=== PATIENT | female | born 1945 | race Caucasian/White ===

== ENCOUNTER → 2018-03-28 09:02 | Outpatient (CLI) | payer MEDICARE, OTHER, SELFPAY ==
[2018-03-28 10:42] LABS: Add Manual Diff / Slide Review NO; Basophils Percent Auto 0.7 % (0-2); Eosinophils Percent Auto 2.8 % (2-4); Hematocrit 40.9 % (36-46); Lymphocytes Percent Auto 30.6 % (25-40); Mean Corpuscular HGB Conc 34.2 % (30-36); Mean Corpuscular Volume 90.7 fL (80-100); Monocytes Percent Auto 8.6 % (3-14); Neutrophils Absolute Auto 2700 /uL (3000-5900); Neutrophils Percent Auto 57.3 % (50-75); Platelet Count 286 X10^3/uL (150-400); Red Blood Cell Count 4.51 X10^6/uL (4.0-5.2); Red Cell Distribution Width 13.6 % (11.6-14.8); White Blood Cell Count 4.7 X10^3/uL (4.5-11.0)
[2018-03-28 11:37] LABS: Alanine Aminotransferase 18 IU/L (9-52); Albumin 3.9 g/dL (3.5-5.0); Albumin Globulin Ratio 1.3 (1.0-2.8); Alkaline Phosphatase 46 U/L (38-126); Aspartate Aminotransferase 17 IU/L (14-36); BUN Creatinine Ratio 18.9 (6-22); Bilirubin Total 0.6 mg/dL (0.2-1.3); Blood Urea Nitrogen 17 mg/dL (7-17); Calcium 9.3 mg/dL (8.4-10.2); Carbon Dioxide 26 mmol/L (22-32); Chloride 105 mmol/L (98-107); Cholesterol 250 mg/dL (140-199); Estimated Glomerular Filt Rate > 60.0 mL/min (>60); Globulin 2.9 g/dL (1.7-4.1); Glucose 102 mg/dL (80-110); HDL Cholesterol 99 mg/dL (40-60); HEMOLYSIS < 15 (0-50); LDL Cholesterol Calculated 131 mg/dL (<100); Potassium 3.9 mmol/L (3.4-5.1); Sodium 140 mmol/L (137-145); Total Protein 6.8 g/dL (6.3-8.2); Triglycerides 101 mg/dL (35-150)
[2018-03-28 12:21] LABS: TSH w/ Reflex to FT4 0.35 uIU/mL (0.47-4.68)
[2018-03-28 13:29] LABS: Free T4, Direct Thyroxine 1.71 ng/dL (0.78-2.19)
== END ==
PROVIDERS: PCP Family Medicine; Visit Provider Family Medicine
DX: E03.9 Hypothyroidism, unspecified (principal)
CPT/HCPCS: 36415; 80053; 80061; 84439; 84443; 85025

== ENCOUNTER → 2018-03-29 09:13 | Outpatient (CLI) | payer MEDICARE, OTHER, SELFPAY ==
--- NOTE | 2018-03-29 | DI.MG.S_ITS ---
BILATERAL DIGITAL SCREENING MAMMOGRAM 3D/2D WITH CAD: 03/29/2018 CLINICAL: Routine screening. Comparison is made to exams dated: 01/18/2017 mammogram, 03/19/2014 mammogram, and 10/30/2015 mammogram - [facility]. The tissue of both breasts is heterogeneously dense. This may lower the sensitivity of mammography. Current study was also evaluated with a Computer Aided Detection (CAD) system. No significant masses, calcifications, or other findings are seen in either breast. There has been no significant interval change. IMPRESSION: NEGATIVE There is no mammographic evidence of malignancy. A 1 year screening mammogram is recommended. This exam was interpreted at Station ID: [id number]. NOTE: For mammograms, a report in lay terms will be sent to the patient. Approximately 15% of breast malignancies will not be visualized mammographically. In the management of a palpable breast mass, a negative mammogram must not discourage biopsy of a clinically suspicious lesion. Electronically Signed By: Kit virk/zoran:03/29/2018 17:13:43 letter sent: Normal Exam ACR BI-RADS Category 1: Negative 3341F
== END ==
PROVIDERS: PCP Family Medicine; Visit Provider Family Medicine
DX: Z12.31 Encounter for screening mammogram for malignant neoplasm of breast (principal)
CPT/HCPCS: 77063; 77067

== ENCOUNTER → 2019-01-11 09:03 | Outpatient (CLI) | payer MEDICARE, OTHER, SELFPAY ==
[2019-01-11 11:07] LABS: TSH w/ Reflex to FT4 0.26 uIU/mL (0.47-4.68)
[2019-01-11 11:35] LABS: Free T4, Direct Thyroxine 1.95 ng/dL (0.78-2.19)
== END ==
PROVIDERS: PCP Family Medicine; Visit Provider Family Medicine
DX: E03.9 Hypothyroidism, unspecified (principal)
CPT/HCPCS: 36415; 84439; 84443

== ENCOUNTER → 2019-05-15 09:03 | Outpatient (CLI) | payer MEDICARE, OTHER, SELFPAY ==
--- NOTE | 2019-05-15 | DI.MG.S_ITS ---
BILATERAL DIGITAL SCREENING MAMMOGRAM 3D/2D WITH CAD: 05/15/2019 CLINICAL: Routine screening. Comparison is made to exams dated: 03/29/2018 mammogram, 01/18/2017 mammogram, and 10/30/2015 mammogram - [facility]. The tissue of both breasts is heterogeneously dense. This may lower the sensitivity of mammography. Current study was also evaluated with a Computer Aided Detection (CAD) system. No significant masses, calcifications, or other findings are seen in either breast. There has been no significant interval change. IMPRESSION: NEGATIVE There is no mammographic evidence of malignancy. A 1 year screening mammogram is recommended. This exam was interpreted at Station ID: [id number]. NOTE: For mammograms, a report in lay terms will be sent to the patient. Approximately 15% of breast malignancies will not be visualized mammographically. In the management of a palpable breast mass, a negative mammogram must not discourage biopsy of a clinically suspicious lesion. Electronically Signed By: Kit virk/zoran:05/15/2019 16:33:48 letter sent: Normal Exam ACR BI-RADS Category 1: Negative 3341F
[2019-05-15 10:15] LABS: Alanine Aminotransferase 9 IU/L (9-52); Albumin 4.1 g/dL (3.5-5.0); Albumin Globulin Ratio 1.4 (1.0-2.8); Alkaline Phosphatase 52 U/L (38-126); Aspartate Aminotransferase 17 IU/L (14-36); BUN Creatinine Ratio 21.3 (6-22); Bilirubin Total 0.5 mg/dL (0.2-1.3); Blood Urea Nitrogen 17 mg/dL (7-17); Calcium 9.3 mg/dL (8.4-10.2); Carbon Dioxide 28 mmol/L (22-32); Chloride 105 mmol/L (98-107); Cholesterol 252 mg/dL (140-199); Estimated Glomerular Filt Rate > 60.0 mL/min (>60); Glucose 106 mg/dL (80-110); HDL Cholesterol 108 mg/dL (40-60); HEMOLYSIS < 15 (0-50); LDL Cholesterol Calculated 122 mg/dL (<100); Potassium 4.6 mmol/L (3.4-5.1); Sodium 139 mmol/L (137-145); Total Protein 7.1 g/dL (6.3-8.2); Triglycerides 109 mg/dL (35-150)
[2019-05-15 11:06] LABS: Free T3, Triiodothyronine Free 2.55 pg/mL (2.77-5.27); Free T4, Direct Thyroxine 1.35 ng/dL (0.78-2.19)
[2019-05-15 11:20] LABS: Thyroid Stimulating Hormone 1.41 uIU/mL (0.47-4.68)
== END ==
PROVIDERS: PCP Family Medicine; Visit Provider Family Medicine
DX: Z13.21 Encounter for screening for nutritional disorder (principal); E03.9 Hypothyroidism, unspecified; E78.5 Hyperlipidemia, unspecified
CPT/HCPCS: 36415; 77063; 77067; 80053; 80061; 84439; 84443; 84481

== ENCOUNTER → 2020-09-10 12:39 | Outpatient (CLI) | payer MEDICARE, OTHER, SELFPAY ==
--- NOTE | 2020-09-10 12:40 | DI.MG.S_ITS ---
BILATERAL DIGITAL SCREENING MAMMOGRAM 3D/2D WITH CAD: 09/10/2020 CLINICAL: Routine screening. Comparison is made to exams dated: 05/15/2019 mammogram, 03/29/2018 mammogram, and 01/18/2017 mammogram - [facility]. The tissue of both breasts is heterogeneously dense. This may lower the sensitivity of mammography. Current study was also evaluated with a Computer Aided Detection (CAD) system. There is a stable benign focal asymmetry in both breasts. No significant masses, calcifications, or other findings are seen in either breast. There has been no significant interval change. IMPRESSION: BENIGN There is no mammographic evidence of malignancy. A 1 year screening mammogram is recommended. This exam was interpreted at Station ID: [id number]. NOTE: For mammograms, a report in lay terms will be sent to the patient. Approximately 15% of breast malignancies will not be visualized mammographically. In the management of a palpable breast mass, a negative mammogram must not discourage biopsy of a clinically suspicious lesion. Electronically Signed By: Bishnu Jay acr/zoran:09/10/2020 13:38:13 letter sent: Normal Exam ACR BI-RADS Category 2: Benign Finding(s) 3342F
== END ==
PROVIDERS: PCP Family Medicine; Referring Provider Family Medicine; Visit Provider Family Medicine
DX: Z12.31 Encounter for screening mammogram for malignant neoplasm of breast (principal)
CPT/HCPCS: 77063; 77067

== ENCOUNTER → 2020-09-23 09:36 | Outpatient (CLI) | payer MEDICARE, OTHER, SELFPAY ==
[2020-09-23 11:18] LABS: Alanine Aminotransferase 13 IU/L (<35); Albumin 4.1 g/dL (3.5-5.0); Albumin Globulin Ratio 1.4 (1.0-2.8); Alkaline Phosphatase 57 U/L (38-126); Aspartate Aminotransferase 20 IU/L (14-36); BUN Creatinine Ratio 17.2 (6-22); Bilirubin Total 0.5 mg/dL (0.2-1.3); Blood Urea Nitrogen 15 mg/dL (7-17); Calcium 9.2 mg/dL (8.4-10.2); Carbon Dioxide 28 mmol/L (22-32); Chloride 105 mmol/L (98-107); Cholesterol 278 mg/dL (140-199); Estimated Glomerular Filt Rate > 60.0 mL/min (>60); Glucose 109 mg/dL (80-110); HEMOLYSIS < 15 (0-50); Potassium 3.9 mmol/L (3.4-5.1); Sodium 136 mmol/L (137-145); Total Protein 7.1 g/dL (6.3-8.2); Triglycerides 143 mg/dL (35-150)
[2020-09-23 11:26] LABS: HDL Cholesterol 124 mg/dL (40-60); LDL Cholesterol Calculated 125 mg/dL (<100)
[2020-09-23 11:55] LABS: TSH w/ Reflex to FT4 1.34 uIU/mL (0.47-4.68)
== END ==
PROVIDERS: PCP Family Medicine; Referring Provider Family Medicine; Visit Provider Family Medicine
DX: E03.9 Hypothyroidism, unspecified (principal); E78.5 Hyperlipidemia, unspecified
CPT/HCPCS: 36415; 80053; 80061; 84443

== ENCOUNTER 2020-12-04 14:48 | Emergency (ER) | payer MEDICARE, OTHER, SELFPAY ==
[2020-12-04 14:50] VITALS: BP 183/96; PULSE 57; RESP 16; TEMP 36.4; O2SAT 94; BMI 27.3
[2020-12-04] MEDS: SODIUM CHLORIDE 0.9% 1,000 ML 1000 ML IV (15:11)
[2020-12-04 15:15] LABS: Add Manual Diff / Slide Review NO; Basophils Absolute Auto 0 /uL (0-100); Basophils Percent Auto 0.8 % (0-2); Eosinophils Absolute Auto 200 /uL (0-450); Eosinophils Percent Auto 3.5 % (2-4); Hematocrit 43.2 % (36-46); Hemoglobin 14.5 g/dL (12.0-16.0); Lymphocytes Absolute Auto 1900 /uL (1100-4500); Lymphocytes Percent Auto 30.9 % (25-40); Mean Corpuscular HGB Conc 33.4 % (30-36); Mean Corpuscular Hemoglobin 31.5 PG (26-34); Mean Corpuscular Volume 94.1 fL (80-100); Monocytes Absolute Auto 400 /uL (0-900); Neutrophils Absolute Auto 3600 /uL (1500-7000); Neutrophils Percent Auto 57.8 % (50-75); Platelet Count 269 X10^3/uL (150-400); Red Blood Cell Count 4.59 X10^6/uL (4.0-5.2); Red Cell Distribution Width 13.6 % (11.6-14.8); White Blood Cell Count 6.3 X10^3/uL (4.5-11.0)
[2020-12-04 15:27] LABS: Alanine Aminotransferase 29 IU/L (<35); Albumin 4.4 g/dL (3.5-5.0); Albumin Globulin Ratio 1.6 (1.0-2.8); Alkaline Phosphatase 81 U/L (38-126); Aspartate Aminotransferase 72 IU/L (14-36); BUN Creatinine Ratio 18.2 (6-22); Bilirubin Total 0.6 mg/dL (0.2-1.3); Blood Urea Nitrogen 18 mg/dL (7-17); Calcium 9.6 mg/dL (8.4-10.2); Carbon Dioxide 23 mmol/L (22-32); Chloride 104 mmol/L (98-107); Creatine Kinase 37 U/L (30-135); Estimated Glomerular Filt Rate 54.5 mL/min (>60); Ethanol (ETOH) < 10 mg/dL; Globulin 2.8 g/dL (1.7-4.1); Glucose 115 mg/dL (80-110); HEMOLYSIS < 15 (0-50); Lactate (Lactic Acid) 1.9 mmol/L (0.7-2.1); Lipase 83 U/L (23-300); Potassium 3.7 mmol/L (3.4-5.1); Sodium 137 mmol/L (137-145); Total Protein 7.2 g/dL (6.3-8.2)
[2020-12-04 15:37] LABS: Troponin I < 0.012 ng/mL (0.01-0.034)
--- NOTE | 2020-12-04 15:47 | ED.GENADULT ---
HPI - General Adult General Chief complaint: Abdominal Pain Stated complaint: Sudden onset abd pain Time Seen by Provider: 12/04/20 15:08 Source: patient Mode of arrival: EMS Limitations: no limitations History of Present Illness HPI narrative: Patient is a 75-year-old female brought in by EMS for evaluation of a sudden onset of left upper quadrant abdominal pain. She states that it occurred while she was eating. She has never had any symptoms like this in the past. She felt like that her stomach was cramping. She had no other associated symptoms to include fevers or nausea vomiting or change in bowel habits. No skin rashes. The time my evaluation her symptoms have completely resolved. Related Data Home Medications Medication Instructions Recorded Confirmed VITAMIN D (Vitamin D3) 1,000 unit PO QDAY #0 05/27/11 09/25/20 Previous Rx's Medication Instructions Recorded fluocinonide 1 coco TOPICAL QDAY #30 gm 05/08/17 estradiol 0.5 mg tablet 0.5 mg PO DAILY #90 tab 08/28/19 levothyroxine 88 mcg capsule 88 mcg PO DAILY #90 cap 01/22/20 estradiol 10 mcg vaginal tablet 10 mcg VAGINAL 2XW #24 tab 07/29/20 Allergies Allergy/AdvReac Type Severity Reaction Status Date / Time adhesive Allergy Mild RASH Verified 12/04/20 14:55 PAPER TAPE OK Macrolide Antibiotics AdvReac Intermediate INTERFERS Verified 12/04/20 14:55 W/ HER MYCOPHENOLATE NSAIDS (Non-Steroidal AdvReac Intermediate SUGGESTED Verified 12/04/20 14:55 Anti-Inflamma NOT TO TAKE D/T KIDNEY PROBLEMS codeine AdvReac Mild DROWSY Verified 12/04/20 14:55 macadamian nuts Allergy Mild mouth ramos Uncoded 09/25/20 09:41 OYSTER AdvReac Mild NOSE NUMB Uncoded 09/25/20 09:41 Review of Systems Constitutional Constitutional: Denies fever(s) and Denies headache(s) ENT Ears, Nose, Mouth, and Throat: Denies headache(s) Cardiovascular Cardiovascular: Denies chest pain and Denies dyspnea Respiratory Respiratory: Denies dyspnea Gastrointestinal Gastrointestinal: Reports abdominal pain, Denies change in bowel habits, Denies nausea and Denies vomiting Genitourinary Genitourinary: Denies dysuria Genitourinary: Denies dysuria Musculoskeletal Musculoskeletal: Denies arthralgias, Denies back pain and Denies myalgias Integumentary/Breasts Skin/Breast: Denies lesions and Denies rash Neurologic Neurologic: Denies behavioral changes and Denies headache(s) Psychiatric Psychiatric: Denies behavioral changes Hematologic/Lymphatic On Anticoagulants: No Patient History Medical History Chicken pox Hayfever Hypothyroidism (~1969) Kidney failure (2011) Measles Mumps 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 Osteoarthritis (~1989) Osteoarthritis of left knee (08/27/14) 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) Plantar fasciitis Systemic fungal infection affecting skin (1978) Tinnitus (~1993) Toe fracture (2007) Upper arm fracture (1950) Surgical History (Updated 05/01/18 @ 14:25 by Sandy Rodriguez) Anesthesia History of elective (1969) History of gynecologic surgery (2013) History of knee replacement (12/2014) History of surgery on arm (1950) History of toe surgery (2007) History of tonsillectomy (1995) Status post arthroscopy (1995) Status post biopsy (2011) Status post breast biopsy (2006) Status post laparoscopy (2011) Status post vaginal hysterectomy (1979) Family History (Updated 05/01/18 @ 14:32 by Sandy Rodriguez) Grandmother Hyperlipidemia Hypertension Mother Stroke Rheumatoid arthritis Personal history of twin in prior Grandfather Prostate cancer Grandmother Hyperlipidemia Hypertension Brother Crohn's disease Father Brain cancer Social History Smoking Status: Former smoker Smoking Status: Former smoker alcohol intake frequency: 3 or more drinks per day Substance Use Type: does not use Exam Initial Vital Signs Initial Vital Signs: Vital Signs Temperature 97.5 F L 12/04/20 14:50 Pulse Rate 57 L 12/04/20 14:50 Respiratory Rate 16 12/04/20 14:50 Blood Pressure 183/96 H 12/04/20 14:50 Pulse Oximetry 94 12/04/20 14:50 Const General: cooperative, comfortable and well developed Limitations: mental status not altered HENMT Head: normal to inspection and normocephalic Resp Effort & Inspection: normal respiratory effort Cardio Rate: regular rate GI Inspection: non-distended Palpation: soft, No firm and No tender Skin Lesions: no lesions Rashes: no rashes Neuro General: patient alert, patient awake and patient oriented x3 Cognition: normal cognition Speech: speech normal Extrem General: capillary refill normal Psych Appearance: grossly normal and well kempt Course Orders Ordered: Discontinued Medications Sodium Chloride (Normal Saline 0.9%) 1,000 mls @ 1,000 mls/hr IV BOLUS ONE Stop: 12/04/20 15:54 Last Infusion: 12/04/20 16:03 Dose: 0 mls/hr Documented by: Admin: 12/04/20 15:11 Dose: 1,000 mls/hr Documented by: BRIDGETTE Vital Signs Vital signs: Vital Signs - 8 hr 12/04/20 14:50 Temperature 97.5 F L Pulse Rate 57 L Respiratory Rate 16 Blood Pressure 183/96 H Pulse Oximetry 94 Medical Decision Making Lab Data Lab results reviewed: Yes I reviewed the patient's lab results. Result diagrams: 12/04/20 15:09 12/04/20 15:09 Labs: Lab Results 12/04/20 12/04/20 12/04/20 Range/Units 15:09 15:09 15:09 WBC 6.3 (4.5-11.0) X10^3/uL RBC 4.59 (4.0-5.2) X10^6/uL Hgb 14.5 (12.0-16.0) g/dL Hct 43.2 (36-46) % MCV 94.1 (80-100) fL MCH 31.5 (26-34) PG MCHC 33.4 (30-36) % RDW 13.6 (11.6-14.8) % Plt Count 269 (150-400) X10^3/uL Neut % (Auto) 57.8 (50-75) % Lymph % (Auto) 30.9 (25-40) % [place] % (Auto) 7.0 (3-14) % Eos % (Auto) 3.5 (2-4) % Baso % (Auto) 0.8 (0-2) % Neut # (Auto) 3600 (7549-4614) /uL Lymph # (Auto) 1900 (3155-3686) /uL [place] # (Auto) 400 (0-900) /uL Eos # (Auto) 200 (0-450) /uL Baso # (Auto) 0 (0-100) /uL Sodium 137 (137-145) mmol/L Potassium 3.7 (3.4-5.1) mmol/L Chloride 104 (98-107) mmol/L Carbon Dioxide 23 (22-32) mmol/L BUN 18 H (7-17) mg/dL Creatinine 0.99 (0.52-1.04) mg/dL Estimated GFR 54.5 L (>60) mL/min BUN/Creatinine Ratio 18.2 (6-22) Glucose 115 H (80-110) mg/dL Lactate 1.9 (0.7-2.1) mmol/L Calcium 9.6 (8.4-10.2) mg/dL Total Bilirubin 0.6 (0.2-1.3) mg/dL AST 72 H (14-36) IU/L ALT 29 (<35) IU/L Alkaline Phosphatase 81 (38-126) U/L Total Creatine Kinase 37 (30-135) U/L CK-MB (CK-2) TNP CK-MB (CK-2) Rel Index TNP Troponin I < 0.012 (0.01-0.034) ng/mL Total Protein 7.2 (6.3-8.2) g/dL Albumin 4.4 (3.5-5.0) g/dL Globulin 2.8 (1.7-4.1) g/dL Albumin/Globulin Ratio 1.6 (1.0-2.8) Lipase 83 (23-300) U/L Ethyl Alcohol < 10 ( - 10) mg/dL ECG Data Attestation: I personally reviewed and interpreted this ECG as follows: Prior ECG tracings: not available for review Interpretation: Sinus rhythm Ventricular rate is 61 Normal axis Normal QRS Normal QTC No ST T wave changes MDM Narrative Medical decision making narrative: At the time my evaluation patient was completely asymptomatic and she states that she has been asymptomatic since arrival here to the emergency department. Her labs are unremarkable. Low suspicion for any acute surgical intra-abdominal pathology. She is afebrile. Her lipase is unremarkable. We will hold on further workup for now and have her return to the emergency department for symptoms worsen. Discharge Plan Departure Patient Disposition: Home Clinical Impression: Abdominal pain Instructions: DI for Abdominal Pain-Adult Activity Restrictions/Additional Instructions: Recommend that you continue all of your medications as directed. You have no restrictions on your activities or your diet however if your symptoms return or change please return to the emergency department for further evaluation. Contact your primary doctor for a follow-up. Prescriptions: No Action VITAMIN D (Vitamin D3) 1,000 unit PO QDAY Qty: 0 RF: 0 fluocinonide 0.05 % ointment 1 coco Topical QDAY Qty: 30 RF: 1 estradiol 0.5 mg tablet 0.5 mg PO DAILY Qty: 90 RF: 3 levothyroxine 88 mcg capsule 88 mcg PO DAILY Qty: 90 RF: 3 estradiol [Vagifem] 10 mcg tablet 10 mcg Vaginal 2XW Qty: 24 RF: 1 Referrals: Sallie Burton DO [Primary Care Provider] -
[2020-12-04 16:01] VITALS: BP 142/75; PULSE 79; RESP 16; TEMP 36.4; O2SAT 96
== END 2020-12-04 16:04 | disposition home or self-care (01) ==
PROVIDERS: Emergency Provider Emergency Medicine; PCP Family Medicine
DX: R10.12 Left upper quadrant pain (principal)
CPT/HCPCS: 36415; 80053; 80320; 82550; 83605; 83690; 84484; 85025; 93005; 93010; 96360; 96361; 99284

== ENCOUNTER → 2020-12-24 12:31 | Outpatient (CLI) | payer MEDICARE, OTHER, SELFPAY | PROVIDERS: PCP Family Medicine; Referring Provider Family Medicine; Visit Provider Family Medicine | DX: M81.0 Age-related osteoporosis without current pathological fracture (principal); M85.861 Other specified disorders of bone density and structure, right lower leg | CPT/HCPCS: 77080 ==

== ENCOUNTER → 2021-01-01 08:42 | Outpatient (CLI) | payer MEDICARE, OTHER, SELFPAY ==
[2021-01-01 09:44] LABS: Add Manual Diff / Slide Review NO; Basophils Absolute Auto 0 /uL (0-100); Basophils Percent Auto 0.8 % (0-2); Eosinophils Absolute Auto 100 /uL (0-450); Eosinophils Percent Auto 2.3 % (2-4); Hematocrit 42.8 % (36-46); Hemoglobin 14.2 g/dL (12.0-16.0); Lymphocytes Absolute Auto 1900 /uL (1100-4500); Lymphocytes Percent Auto 38.8 % (25-40); Mean Corpuscular HGB Conc 33.3 % (30-36); Mean Corpuscular Hemoglobin 31.2 PG (26-34); Mean Corpuscular Volume 93.9 fL (80-100); Monocytes Absolute Auto 400 /uL (0-900); Monocytes Percent Auto 7.9 % (3-14); Neutrophils Absolute Auto 2500 /uL (1500-7000); Neutrophils Percent Auto 50.2 % (50-75); Platelet Count 280 X10^3/uL (150-400); Red Blood Cell Count 4.56 X10^6/uL (4.0-5.2); Red Cell Distribution Width 13.4 % (11.6-14.8); White Blood Cell Count 4.9 X10^3/uL (4.5-11.0)
[2021-01-01 09:55] LABS: Alanine Aminotransferase 14 IU/L (<35); Albumin 4.1 g/dL (3.5-5.0); Albumin Globulin Ratio 1.5 (1.0-2.8); Alkaline Phosphatase 55 U/L (38-126); Aspartate Aminotransferase 19 IU/L (14-36); BUN Creatinine Ratio 20.7 (6-22); Bilirubin Total 0.5 mg/dL (0.2-1.3); Blood Urea Nitrogen 17 mg/dL (7-17); Calcium 9.7 mg/dL (8.4-10.2); Carbon Dioxide 24 mmol/L (22-32); Chloride 106 mmol/L (98-107); Estimated Glomerular Filt Rate > 60.0 mL/min (>60); Globulin 2.8 g/dL (1.7-4.1); Glucose 103 mg/dL (80-110); HEMOLYSIS < 15 (0-50); Sodium 138 mmol/L (137-145); Total Protein 6.9 g/dL (6.3-8.2)
== END ==
PROVIDERS: PCP Family Medicine; Referring Provider Family Medicine; Visit Provider Family Medicine
DX: E03.9 Hypothyroidism, unspecified (principal); E78.5 Hyperlipidemia, unspecified; R89.9 Unspecified abnormal finding in specimens from other organs, systems and tissues
CPT/HCPCS: 36415; 80053; 85025

== ENCOUNTER → 2021-01-19 09:47 | Outpatient (CLI) | payer MEDICARE, OTHER, SELFPAY ==
--- NOTE | 2021-01-19 09:49 | DI.US.S_ITS ---
PROCEDURE: US ABDOMEN COMPLETE INDICATIONS: LUQ pain TECHNIQUE: Real-time scanning was performed of the abdominal and retroperitoneal organs, with image documentation. COMPARISON: [facility], [place], ABDOMEN COMPLETE, 02/21/2012, 16:07. FINDINGS: Liver: Liver is normal in size and homogeneous in echotexture. Gallbladder: A normal gallbladder cannot be identified but there is an area of acoustic shadowing at the gallbladder fossa consistent with the gallbladder being completely stone filled. Biliary ducts: Intrahepatic bile ducts are non-dilated. Extrahepatic bile duct caliber measures 3.0 mm. Normal is 6-7 mm or less in diameter, or 10 mm or less post-cholecystectomy. Pancreas: Visualized portions of the pancreas are sonographically normal. Spleen: Spleen is normal in size and homogeneous in echotexture. Kidneys: Kidneys are normal in size and echotexture. Right kidney measures 9.6 cm long; left kidney measures 10.2 cm long. No hydronephrosis or nephrolithiasis. No solid masses. Aorta: Visualized aorta is normal in caliber at less than 3 cm. Iliacs: Proximal common iliac arteries are normal in caliber at less than 2.5 cm. IVC: Intrahepatic inferior vena cava is patent. Miscellaneous: No free abdominal fluid. IMPRESSION: Presumed gallstone filled gallbladder, without evidence of biliary distension. No definite focal left upper quadrant abnormality is seen. CT scanning may be warranted. Dictated by: Darrell Whitley M.D. on 01/19/2021 at 14:27 Approved by: Darrell Whitley M.D. on 01/19/2021 at 14:33
== END ==
PROVIDERS: PCP Family Medicine; Referring Provider Family Medicine; Visit Provider Family Medicine
DX: R79.89 Other specified abnormal findings of blood chemistry; R10.12 Left upper quadrant pain
CPT/HCPCS: 76700

== ENCOUNTER → 2021-05-17 08:51 | Outpatient (CLI) | payer MEDICARE, OTHER, SELFPAY ==
[2021-05-17 11:42] LABS: COVID19 -Nasal RAPID Negative (Negative)
== END ==
PROVIDERS: PCP Family Medicine; Visit Provider Surgery
DX: Z01.812 Encounter for preprocedural laboratory examination (principal); Z20.822 Contact with and (suspected) exposure to COVID-19
CPT/HCPCS: 87635

== ENCOUNTER 2021-05-18 09:23 | Day surgery (SDC) | payer MEDICARE, OTHER, SELFPAY ==
[2021-05-12 14:38] VITALS: BMI 26.6
[2021-05-18] VITALS (15 sets, daily range): BP systolic 103–195; BP diastolic 56–110; PULSE 70–85; RESP 13–25; TEMP 35.8–36.6; O2SAT 90–100; BMI 26.6
--- NOTE | 2021-05-18 | PATH_ITS ---
[facility] Accession Number: [id number] . 01 Material submitted: . gallbladder - GALLBLADDER AND CONTENTS . 01 Clinical history: . SDC . 02 Diagnosis: Gallbladder and Contents: Gallbladder with cholesterolosis and cholelithiasis. V 05/20/2021 1135 Local . 02 Electronically signed: . Radha Qureshi MD, Pathologist NPI- [id number] . 01 Gross description: . The specimen is received in formalin, labeled gallbladder and consists of an 8.5 x 2.8 x 2.8 cm intact gallbladder with a 0.4 cm in diameter cystic duct. The serosa is dunbar-green and wrinkled. Opening reveals green viscous bile with multiple dubnar-green multifaceted choleliths ranging from 0.1-0.8 cm. The mucosa is green and velvety and the wall thickness measures 0.1 cm. Local Area Network Administrator sections are submitted, to include the en face cystic duct margin (blue) in cassette A1. ([id number]) /[facility] 05/19/2021 1004 Local . 02 Pathologist provided ICD-10: K80.70, K80.50 . 02 CPT . 282182 Performed at: 01 [facility] [address], [place], [place] [id number] MD Kit Lucas MD Phone: [phone] Performed at: 02 [facility] [address] [place], [place] [id number] MD Asha Garsia MD Phone: [phone]
[2021-05-18] MEDS: LACTATED RINGERS 1,000 ML 42 ML IV (09:57)
--- NOTE | 2021-05-18 10:53 | PM.PREOP ---
Pre-operative Note Interval Note History & Physical reviewed/Exam performed by Physician: Yes Changes to H&P: No
[2021-05-18] MEDS: CLINDAMYCIN 900 MG/50 ML PIGGYBACK 50 MG IV (11:07)
--- NOTE | 2021-05-18 11:35 | SUR.OPER ---
Supine on padded OR bed, head on pillow, safety belt at thigh, left arm padded and tucked at side. Right arm secured on padded arm board <90 degrees abduction. Legs uncrossed. Padded footboard in place. Tape over blanket to secure lower legs.
[2021-05-18] MEDS: BUPIVACAINE 0.25% (PF) VIAL 30 ML INJ (11:39)
--- NOTE | 2021-05-18 12:49 | PM.OP.1 ---
Operative Date/Time/Diagnoses Date of procedure: 05/18/21 Time of procedure: 12:49 Pre-op diagnosis: biliary colic Post-op diagnosis: other (acute on chronic cholecystitis) Procedure & Clinicians Procedure: laparoscopic cholecystectomy Same procedure as scheduled: Yes Indications: biliary colic Surgeon: Caleb Greene Click Yes if Unassisted: Yes Anesthesia Type: General Operative Notes Findings: chronic adhesions between over the top of the liver and between the gallbladder and the anterior abdominal wall. Specimen(s): other (gallbladder) Estimated Blood Loss (mL): 20 Procedure in detail: The patient was placed supine on the table and bilateral lower extremity compression devices were applied. Anesthesia was induced they were intubated with an endotracheal tube and received 2g of Ancef. A time-out was performed. They were prepped and draped in sterile fashion. An infraumbilical incision was made, the umbilical stalk was elevated and the fascia was sharply incised entering the abdomen atraumatically. A blunt tip 12mm balloon trocar was then inserted, pneumoperitoneum was established and inspection of the abdomen demonstrated no evidence of injury. They were placed head up and right side up and then a 11 mm port was placed high in the epigastrium and two 5mm in the right upper quadrant. There were dense adhesions over top the liver as well as between the gallbladder and the anterior abdominal consistent with a history of chronic cholecystitis. These adhesions were taken down. The gallbladder was extremely redundant and it was difficult to visualize the hepatocystic triangle adequately. For this reason the gallbladder was approached with a top-down dissection. Plane between the gallbladder and the liver was developed on both the medial and the lateral side until the infundibulum was safely reached. At this point of the gallbladder was then retracted laterally and this open the hepatocystic triangle. This triangle was skeletonized until only two tubular structures were seen entering the gallbladder. With the critical view of safety fully established the cystic duct was clipped twice proximally and once distally using the 10 mm weck hemoclip clip applied under direct visualization and then sharply divided. The cystic artery was divided in the same fashion. The liver bed was then inspected for hemostasis and this was achieved. The abdomen was irrigated with sterile saline and inspection was made that showed the clips in good position. The specimen was removed using Endo-Catch. The abdomen was desufflated. The umbilical fascia was closed with 0 Vicryl in a [id number] fashion under direct visualization. Skin incisions were irrigated and closed with 4-0 Monocryl. 30 ml of 0.25% bupivacaine was infiltrated into the subcutaneous tissue of the incisions. The wounds were sealed with Dermabond. Patient emerged from anesthesia was extubated and transferred to recovery in stable condition. The sponge and instrument count at the end of the operation was correct. Complications: none Post-operative Condition: stable Disposition: same day surgery
[2021-05-18] MEDS: fentaNYL 100 MCG/2 ML INJ IV ×3 (12:57→13:27)
[2021-05-18] MEDS: OXYCODONE IR 5 MG TABLET PO (13:04)
[2021-05-18] MEDS: LORazepam 2 MG/ML INJ 0.5 MG IV (13:37)
== END 2021-05-18 15:47 | disposition home or self-care (01) ==
PROVIDERS: PCP Family Medicine; Referring Provider Surgery; Visit Provider Surgery
PROC: 0FT44ZZ Resection of Gallbladder, Percutaneous Endoscopic Approach (ICD-10-PCS; CPT 47562; principal; 2021-05-18 10:45)
DX: K80.12 Calculus of gallbladder with acute and chronic cholecystitis without obstruction (principal); K66.0 Peritoneal adhesions (postprocedural) (postinfection); E03.9 Hypothyroidism, unspecified
CPT/HCPCS: 47562; J0360; J1100; J2060; J2405; J2704; J3010

== ENCOUNTER 2021-08-19 09:30 | Emergency (ER) | payer MEDICARE, OTHER, SELFPAY ==
[2021-08-19] VITALS (13 sets, daily range): BP systolic 183–214; BP diastolic 87–107; PULSE 63–74; RESP 12–24; TEMP 36.6; O2SAT 96–100; BMI 27.3
[2021-08-19 10:27] LABS: Add Manual Diff / Slide Review NO; Basophils Absolute Auto 100 /uL (0-100); Basophils Percent Auto 0.6 % (0-2); Eosinophils Absolute Auto 100 /uL (0-450); Eosinophils Percent Auto 0.7 % (2-4); Hematocrit 43.3 % (36-46); Hemoglobin 14.7 g/dL (12.0-16.0); Lymphocytes Absolute Auto 1700 /uL (1100-4500); Lymphocytes Percent Auto 16.6 % (25-40); Mean Corpuscular HGB Conc 33.8 % (30-36); Mean Corpuscular Hemoglobin 31.2 PG (26-34); Mean Corpuscular Volume 92.2 fL (80-100); Monocytes Absolute Auto 500 /uL (0-900); Monocytes Percent Auto 5.3 % (3-14); Neutrophils Absolute Auto 7800 /uL (1500-7000); Neutrophils Percent Auto 76.8 % (50-75); Platelet Count 324 X10^3/uL (150-400); Red Cell Distribution Width 13.6 % (11.6-14.8); White Blood Cell Count 10.1 X10^3/uL (4.5-11.0)
[2021-08-19 10:42] LABS: Alanine Aminotransferase 19 IU/L (<35); Albumin 4.6 g/dL (3.5-5.0); Albumin Globulin Ratio 1.6 (1.0-2.8); Alkaline Phosphatase 66 U/L (38-126); Aspartate Aminotransferase 21 IU/L (14-36); BUN Creatinine Ratio 15.1 (6-22); Bilirubin Total 0.7 mg/dL (0.2-1.3); Blood Urea Nitrogen 13 mg/dL (7-17); Calcium 9.8 mg/dL (8.4-10.2); Carbon Dioxide 24 mmol/L (22-32); Chloride 105 mmol/L (98-107); Estimated Glomerular Filt Rate > 60.0 mL/min (>60); Globulin 2.8 g/dL (1.7-4.1); Glucose 110 mg/dL (80-110); HEMOLYSIS < 15 (0-50); Lipase 51 U/L (23-300); Potassium 3.9 mmol/L (3.4-5.1); Sodium 138 mmol/L (137-145); Total Protein 7.4 g/dL (6.3-8.2)
--- NOTE | 2021-08-19 11:32 | ED.ABDPAIN ---
HPI - Abdominal Pain General Chief Complaint: Abdominal Pain Stated Complaint: Abd pain, had gallbladder removed 2months ago Time Seen by Provider: 08/19/21 10:45 Source: patient Mode of arrival: Ambulatory Limitations: no limitations History of Present Illness HPI narrative: This is a 76-year-old female who comes in with complaint of epigastric abdominal pain that started about 930 last night and has been persistent. Then sort of moved to the right side and is now all over. Patient states she has not had any fevers or chills she is aware of. No nausea or vomiting. No diaphoresis. She denies any chest pain or pressure. No shortness of breath. She denies any diarrhea or constipation she had a normal bowel movement yesterday. No bright red blood or melena. She denies dysuria urgency or frequency. She states this feels very similar to when she had her gallbladder issues and she has had a cholecystectomy 3 months ago. She has a history of autoimmune kidney failure and has been told to avoid NSAIDs. She tried Tylenol at home without improvement. She is on Synthroid and Vagifem. She denies any other surgeries. She is allergic to cephalexin and states she is sensitive to narcotics. She denies tobacco, 1-2 alcoholic drinks daily and no illicit. Her primary care is Dr. Burton. Related Data Home Medications Medication Instructions Recorded Confirmed calcium carbonate [Calcium 500] 1 tab PO DAILY 06/17/21 06/17/21 cholecalciferol (vitamin D3) 25 25 mcg PO DAILY 06/17/21 06/17/21 mcg (1,000 unit) capsule glucos sul [id number] PO DAILY 06/17/21 06/17/21 [Glucosamine Chondroitin] phytonadione (vitamin K1) PO DAILY 06/17/21 06/17/21 Previous Rx's Medication Instructions Recorded estradiol 0.5 mg tablet 0.5 mg PO DAILY #90 tab 08/28/19 levothyroxine 88 mcg capsule 88 mcg PO DAILY #90 cap 01/13/21 estradiol 10 mcg vaginal tablet See Rx Instructions .ROUTE 02/03/21 (Yuvafem) .COMPLEX #4 tab acetaminophen 325 mg capsule 650 mg PO QID PRN #60 cap 05/18/21 (Tylenol) amoxicillin 875 mg-potassium 1 tab PO Q12H #20 tab 08/19/21 clavulanate 125 mg tablet (Augmentin) oxycodone 5 mg tablet 5 mg PO Q6H PRN #14 tab 08/19/21 Allergies Allergy/AdvReac Type Severity Reaction Status Date / Time adhesive Allergy Mild RASH Verified 08/19/21 09:49 PAPER TAPE OK cephalexin [From Keflex] Allergy Mild Rash Verified 08/19/21 09:49 Macrolide Antibiotics AdvReac Intermediate INTERFERS Verified 08/19/21 09:49 W/ HER MYCOPHENOLATE NSAIDS (Non-Steroidal AdvReac Intermediate SUGGESTED Verified 08/19/21 09:49 Anti-Inflamma NOT TO TAKE D/T KIDNEY PROBLEMS codeine AdvReac Mild DROWSY Verified 08/19/21 09:49 macadamian nuts Allergy Mild mouth ramos Uncoded 06/17/21 09:58 OYSTER AdvReac Mild NOSE NUMB Uncoded 06/17/21 09:58 Review of Systems Review of Systems ROS Unobtainable: All systems reviewed & are unremarkable except as noted in HPI and below 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) Plantar fasciitis Sinus drainage Systemic fungal infection Systemic fungal infection affecting skin (1978) Tinnitus (~1993) Toe fracture (2007) Upper arm fracture (1950) UTI (urinary tract infection) Surgical History Anesthesia History of elective (1969) History of gynecologic surgery (2013) History of knee replacement (12/2014) History of surgery on arm (1950) History of toe surgery (2007) History of tonsillectomy (1995) Status post arthroscopy (1995) Status post biopsy (2011) Status post breast biopsy (2006) Status post laparoscopy (2011) Status post vaginal hysterectomy (1979) Family History Grandmother Hyperlipidemia Hypertension Mother Stroke Rheumatoid arthritis Personal history of twin in prior Grandfather Prostate cancer Grandmother Hyperlipidemia Hypertension Brother Crohn's disease Father Brain cancer Social History household members: spouse Smoking Status: Former smoker alcohol intake: current Smoking Status: Former smoker alcohol intake frequency: 3 or more drinks per day Substance Use Type: does not use Exam Narrative Exam Narrative: GENERAL: Alert and oriented x three, female in moderate distress. HEENT: Head normocephalic, atraumatic, EOMI, pupils reactive, face symmetric, moist mucous membranes NECK: Supple, full range of motion CARDIOVASCULAR: Regular rate and rhythm without murmurs, rubs or gallops. RESPIRATORY: Breath sounds equal bilaterally, no wheezes rales or rhonchi. ABDOMEN: Soft, positive for right lower quadrant tenderness which also elicits tenderness in left lower quadrant. She is otherwise nontender on her exam. Mildly distended. Bowel sounds all 4 quadrants. No guarding or rebound, rigidity, no mass, no bruit or pulsatile mass. : No CVA tenderness EXTREMITIES: Normal range of motion, no clubbing or edema. Neurovascularly intact NEUROLOGICAL: Cranial nerves II through XII grossly intact. Moving all extremities SKIN: Warm, dry, no petechiae, no rashes or lesions. Initial Vital Signs Initial Vital Signs: Vital Signs Temperature 97.8 F 08/19/21 09:45 Pulse Rate 74 08/19/21 09:45 Respiratory Rate 18 08/19/21 09:45 Blood Pressure 201/107 H 08/19/21 09:45 Pulse Oximetry 99 08/19/21 09:45 Course Orders Ordered: ED Orders 08/19/21 10:51 Urine Microscopic Stat 08/19/21 11:38 CT abdomen pelvis w con Stat Discontinued Medications Morphine Sulfate (Morphine 2 Mg/Ml Inj) 2 mg IV NOW ONE Stop: 08/19/21 11:40 Last Admin: 08/19/21 11:51 Dose: 2 mg Documented by: SHERIN Oxycodone HCl (Oxycodone Ir 5 Mg Tablet) 5 mg PO NOW ONE Stop: 08/19/21 13:01 Last Admin: 08/19/21 13:06 Dose: 5 mg Documented by: SHERIN Vital Signs Vital signs: Vital Signs - 8 hr 08/19/21 11:40 08/19/21 11:41 08/19/21 11:43 Pulse Rate 69 69 69 Respiratory Rate 21 18 Blood Pressure 214/97 H 214/97 H Pulse Oximetry 99 100 100 08/19/21 12:00 08/19/21 12:03 08/19/21 12:30 Pulse Rate 66 65 63 Respiratory Rate 12 18 18 Blood Pressure 202/89 H Pulse Oximetry 100 100 96 08/19/21 12:33 08/19/21 13:00 Pulse Rate 69 69 Respiratory Rate 19 19 Blood Pressure 183/87 H Pulse Oximetry 97 99 MDM - Abdominal Pain Lab Data Result diagrams: 08/19/21 10:19 08/19/21 10:19 Labs: Lab Results 08/19/21 08/19/21 08/19/21 Range/Units 10:19 10:19 10:19 WBC 10.1 (4.5-11.0) X10^3/uL RBC 4.70 (4.0-5.2) X10^6/uL Hgb 14.7 (12.0-16.0) g/dL Hct 43.3 (36-46) % MCV 92.2 (80-100) fL MCH 31.2 (26-34) PG MCHC 33.8 (30-36) % RDW 13.6 (11.6-14.8) % Plt Count 324 (150-400) X10^3/uL Neut % (Auto) 76.8 H (50-75) % Lymph % (Auto) 16.6 L (25-40) % [place] % (Auto) 5.3 (3-14) % Eos % (Auto) 0.7 L (2-4) % Baso % (Auto) 0.6 (0-2) % Neut # (Auto) 7800 H (6039-3683) /uL Lymph # (Auto) 1700 (7789-5129) /uL [place] # (Auto) 500 (0-900) /uL Eos # (Auto) 100 (0-450) /uL Baso # (Auto) 100 (0-100) /uL Sodium 138 (137-145) mmol/L Potassium 3.9 (3.4-5.1) mmol/L Chloride 105 (98-107) mmol/L Carbon Dioxide 24 (22-32) mmol/L BUN 13 (7-17) mg/dL Creatinine 0.86 (0.52-1.04) mg/dL Estimated GFR > 60.0 (>60) mL/min BUN/Creatinine Ratio 15.1 (6-22) Glucose 110 (80-110) mg/dL Calcium 9.8 (8.4-10.2) mg/dL Total Bilirubin 0.7 (0.2-1.3) mg/dL AST 21 (14-36) IU/L ALT 19 (<35) IU/L Alkaline Phosphatase 66 (38-126) U/L Total Creatine Kinase 31 (30-135) U/L CK-MB (CK-2) TNP CK-MB (CK-2) Rel Index TNP Troponin I < 0.012 (0.01-0.034) ng/mL Total Protein 7.4 (6.3-8.2) g/dL Albumin 4.6 (3.5-5.0) g/dL Globulin 2.8 (1.7-4.1) g/dL Albumin/Globulin Ratio 1.6 (1.0-2.8) Lipase 51 (23-300) U/L Urine RBC (0-5/HPF) Urine WBC (0-5/HPF) Ur Squamous Epith Cells (0-5/HPF) Urine Bacteria (None) Ur Culture Indicated? 08/19/21 Range/Units 10:51 WBC (4.5-11.0) X10^3/uL RBC (4.0-5.2) X10^6/uL Hgb (12.0-16.0) g/dL Hct (36-46) % MCV (80-100) fL MCH (26-34) PG MCHC (30-36) % RDW (11.6-14.8) % Plt Count (150-400) X10^3/uL Neut % (Auto) (50-75) % Lymph % (Auto) (25-40) % [place] % (Auto) (3-14) % Eos % (Auto) (2-4) % Baso % (Auto) (0-2) % Neut # (Auto) (0561-2850) /uL Lymph # (Auto) (0183-7642) /uL [place] # (Auto) (0-900) /uL Eos # (Auto) (0-450) /uL Baso # (Auto) (0-100) /uL Sodium (137-145) mmol/L Potassium (3.4-5.1) mmol/L Chloride (98-107) mmol/L Carbon Dioxide (22-32) mmol/L BUN (7-17) mg/dL Creatinine (0.52-1.04) mg/dL Estimated GFR (>60) mL/min BUN/Creatinine Ratio (6-22) Glucose (80-110) mg/dL Calcium (8.4-10.2) mg/dL Total Bilirubin (0.2-1.3) mg/dL AST (14-36) IU/L ALT (<35) IU/L Alkaline Phosphatase (38-126) U/L Total Creatine Kinase (30-135) U/L CK-MB (CK-2) CK-MB (CK-2) Rel Index Troponin I (0.01-0.034) ng/mL Total Protein (6.3-8.2) g/dL Albumin (3.5-5.0) g/dL Globulin (1.7-4.1) g/dL Albumin/Globulin Ratio (1.0-2.8) Lipase (23-300) U/L Urine RBC 1-5/hpf (0-5/HPF) Urine WBC 0-1/hpf (0-5/HPF) Ur Squamous Epith Cells 5-10 /hpf H (0-5/HPF) Urine Bacteria None seen (None) Ur Culture Indicated? Cult not indicated Point of care testing: Urine Dip Bedside Urine Glucose Negative Bedside Urine Bilirubin - Negative Bedside Urine Ketone - Negative Urine Specific [place] 1.015 Bedside Urine Occult Blood + Bedside Urine pH 7.0 Bedside Urine Protein - Negative Bedside Urine Urobilinogen - Negative Bedside Urine Nitrite - Negative Bedside Urine Leukocytes - Negative Esterase Imaging Data CT scan - abdomen/pelvis: Radiologist's Impression: [address] [id number] [address] Scan Report Signed Patient: Elsy Malave MR#: [id number] : 1945 Acct:[id number] Age/Sex: 76 / F Date of Service: 08/19/21 Loc: ED Accession Number: [id number] ?? Procedure: CT abdomen pelvis w con Ordering Provider: Nava Banuelos D.O. PROCEDURE:? CT ABDOMEN PELVIS W CON ? INDICATIONS:? abd pain, started epigstric, tender RLQ ? TECHNIQUE:? After the administration of intravenous contrast, axial sections acquired from the lung bases to the pubic symphysis.? Coronal and sagittal reformats were performed.? For radiation dose reduction, the following was used:? automated exposure control, adjustment of mA and/or kV according to patient size.? ? COMPARISON:? [facility], , ABDOMEN COMPLETE, 01/19/2021, 9:06. ? FINDINGS:? Image quality:? Excellent.? ? Lung bases:? Dependent atelectasis in posterior aspect of bilateral lung bases are seen. Heart:? No significant findings. ? ABDOMEN: Liver:? There is mild hepatic steatosis, no discrete hepatic lesion is seen. Gallbladder:? Gallbladder is surgically absent.? No abnormality is seen in gallbladder fossa. Biliary ducts:? Unremarkable.? ? Pancreas:? Unremarkable.? ? Spleen:? Unremarkable.? ? Adrenal Glands:? Unremarkable.? ? Kidneys and Ureters:? No renal stones or hydronephrosis.? No hydroureter. ? Stomach and Bowel:? There is no evidence of bowel obstruction.? No gross gastric or small bowel wall thickening.? There is suggestion of diffuse wall thickening involving ascending colon, transverse colon , descending colon and sigmoid colon with mild pericolonic fat stranding and narrowing of the lumen concerning for infectious or inflammatory colitis.? Extensive sigmoid diverticulosis is also seen without evidence of acute diverticulitis.? Appendix is not definitively seen in right lower quadrant abdomen although no specific inflammatory changes are seen in right lower quadrant to suggest acute appendicitis. Peritoneum:? No abnormal intraperitoneal fluid.? No free air.? ? Ventral Wall: ? No hernias.? Abdominal Nodes:? No retroperitoneal or mesenteric adenopathy by size criteria.? Vessels:? Aorta and inferior vena cava are normal in size.? ? PELVIS: Pelvic Organs:? Unremarkable.? ? Bladder:? Unremarkable.? ? Pelvic Nodes: No enlarged lymph nodes.? Miscellaneous: No hernias are seen. ? ? ? Bones:? Degenerative disc disease throughout lumbar spine is seen more prominent at L4-5 and L5-S1 levels.? No acute vertebral body compression fracture.? No suspicious bony lesion is seen. ? ? IMPRESSION:? 1. Diffuse with colonic wall thickening and mild pericolonic fat stranding concerning for infectious or inflammatory colitis. 2. No secondary signs of acute appendicitis in right lower quadrant abdomen.? Extensive sigmoid diverticulosis without CT evidence of acute diverticulitis.? No abscess collection.? No free fluid or free air. 3.? Mild hepatic steatosis.? ? ? Dictated by: Allen Rowell M.D. on 08/19/2021 at 12:01 ? ? Approved by: Allen Rowell M.D. on 08/19/2021 at 12:10?? ECG Data Attestation: I personally reviewed and interpreted this ECG as follows: Prior ECG tracings: available for review Interpretation: Sinus rhythm rate of 67 OH 158 QRS is 74 and QTC of 437. No acute ST changes noted. MDM Narrative Medical decision making narrative: This is a 76-year-old female who comes with complaint of abdominal pain. Patient has diffuse colitis on imaging. She does have leukocytosis. Discussed plan to start oral antibiotics, she received pain medication here in is more comfortable. She has been hypertensive in the department but did decrease prior to discharge. Return precautions discussed. All questions answered. We did discuss that she should follow up for colonoscopy after her symptoms improved for further evaluation. Discharge Plan Departure Patient Disposition: Home Clinical Impression: Colitis, Hepatic steatosis Instructions: DI for Colitis Activity Restrictions/Additional Instructions: Follow-up with your physician this week. Your imaging shows colitis. You may take Tylenol up to a 1000 mg every 8 hours. If this is inadequate you may add narcotic pain medication 1-2 tablets every 6 hours as needed. This medication can make you sleepy do not drive, perform hazardous activities or make any major decisions while taking it. This medication will make you constipated please take a stool softener once to twice daily until stools are soft and regular. Take antibiotics until completely gone. [facility] to [facility]. Please return for fevers, worsening symptoms, intractable pain, lightheadedness or passing out, persistent vomiting, black or bloody stools or other new or worsening symptoms. Prescriptions: New oxycodone 5 mg tablet 5 mg PO Q6H PRN (Reason: pain) Qty: 14 0RF amoxicillin-pot clavulanate [Augmentin] 875-125 mg tablet 1 tab PO Q12H Qty: 20 0RF No Action estradiol 0.5 mg tablet 0.5 mg PO DAILY Qty: 90 3RF estradiol [Yuvafem] 10 mcg tablet See Rx Instructions .ROUTE .COMPLEX Qty: 4 0RF Dose Instruction: INSERT 1 TABLET (10 MCG) VAGINALLY TWICE WEEKLY Rx Instructions: INSERT 1 TABLET (10 MCG) VAGINALLY TWICE WEEKLY levothyroxine 88 mcg capsule 88 mcg PO DAILY Qty: 90 3RF calcium carbonate [Calcium 500] 1 tab PO DAILY 0RF phytonadione (vitamin K1) PO DAILY 0RF glucos sul [id number] [Glucosamine Chondroitin] PO DAILY 0RF cholecalciferol (vitamin D3) 25 mcg (1,000 unit) capsule 25 mcg PO DAILY 0RF acetaminophen [Tylenol] 325 mg capsule 650 mg PO QID PRN (Reason: pain) Qty: 60 0RF Referrals: Sallie Burton DO [Primary Care Provider] -
--- NOTE | 2021-08-19 11:38 | DI.CT.S_ITS ---
PROCEDURE: CT ABDOMEN PELVIS W CON INDICATIONS: abd pain, started epigstric, tender RLQ TECHNIQUE: After the administration of intravenous contrast, axial sections acquired from the lung bases to the pubic symphysis. Coronal and sagittal reformats were performed. For radiation dose reduction, the following was used: automated exposure control, adjustment of mA and/or kV according to patient size. COMPARISON: [facility], , [place] ABDOMEN COMPLETE, 01/19/2021, 9:06. FINDINGS: Image quality: Excellent. Lung bases: Dependent atelectasis in posterior aspect of bilateral lung bases are seen. Heart: No significant findings. ABDOMEN: Liver: There is mild hepatic steatosis, no discrete hepatic lesion is seen. Gallbladder: Gallbladder is surgically absent. No abnormality is seen in gallbladder fossa. Biliary ducts: Unremarkable. Pancreas: Unremarkable. Spleen: Unremarkable. Adrenal Glands: Unremarkable. Kidneys and Ureters: No renal stones or hydronephrosis. No hydroureter. Stomach and Bowel: There is no evidence of bowel obstruction. No gross gastric or small bowel wall thickening. There is suggestion of diffuse wall thickening involving ascending colon, transverse colon , descending colon and sigmoid colon with mild pericolonic fat stranding and narrowing of the lumen concerning for infectious or inflammatory colitis. Extensive sigmoid diverticulosis is also seen without evidence of acute diverticulitis. Appendix is not definitively seen in right lower quadrant abdomen although no specific inflammatory changes are seen in right lower quadrant to suggest acute appendicitis. Peritoneum: No abnormal intraperitoneal fluid. No free air. Ventral Wall: No hernias. Abdominal Nodes: No retroperitoneal or mesenteric adenopathy by size criteria. Vessels: Aorta and inferior vena cava are normal in size. PELVIS: Pelvic Organs: Unremarkable. Bladder: Unremarkable. Pelvic Nodes: No enlarged lymph nodes. Miscellaneous: No hernias are seen. Bones: Degenerative disc disease throughout lumbar spine is seen more prominent at L4-5 and L5-S1 levels. No acute vertebral body compression fracture. No suspicious bony lesion is seen. IMPRESSION: 1. Diffuse with colonic wall thickening and mild pericolonic fat stranding concerning for infectious or inflammatory colitis. 2. No secondary signs of acute appendicitis in right lower quadrant abdomen. Extensive sigmoid diverticulosis without CT evidence of acute diverticulitis. No abscess collection. No free fluid or free air. 3. Mild hepatic steatosis. Dictated by: Allen Rowell M.D. on 08/19/2021 at 12:01 Approved by: Allen Rowell M.D. on 08/19/2021 at 12:10
[2021-08-19 11:42] LABS: Bacteria Urine None Seen; Culture Indicated Urine Cult Not Indicated; RBC Urine 1-5/HPF (0-5/HPF); Squamous Epithelial Cell Urine 5-10 /HPF (0-5/HPF); WBC Urine 0-1/HPF (0-5/HPF)
[2021-08-19] MEDS: MORPHINE 2 MG/ML INJ IV (11:51)
[2021-08-19 12:01] LABS: Creatine Kinase 31 U/L (30-135)
[2021-08-19 12:13] LABS: Troponin I < 0.012 ng/mL (0.01-0.034)
[2021-08-19] MEDS: OXYCODONE IR 5 MG TABLET PO (13:06)
== END 2021-08-19 13:26 | disposition home or self-care (01) ==
PROVIDERS: Emergency Provider Emergency Medicine; PCP Family Medicine
DX: K52.9 Noninfective gastroenteritis and colitis, unspecified (principal); K76.0 Fatty (change of) liver, not elsewhere classified; I10 Essential (primary) hypertension; Z87.891 Personal history of nicotine dependence
CPT/HCPCS: 36415; 74177; 80053; 81003; 81015; 82550; 83690; 84484; 85025; 93005; 96374; 99284; J2270

== ENCOUNTER → 2021-09-02 12:43 | Outpatient (CLI) | payer MEDICARE, OTHER, SELFPAY ==
[2021-09-02 13:59] LABS: Add Manual Diff / Slide Review NO; Basophils Absolute Auto 0 /uL (0-100); Basophils Percent Auto 0.3 % (0-2); Eosinophils Absolute Auto 100 /uL (0-450); Eosinophils Percent Auto 0.7 % (2-4); Hematocrit 41.2 % (36-46); Hemoglobin 13.7 g/dL (12.0-16.0); Lymphocytes Absolute Auto 2200 /uL (1100-4500); Lymphocytes Percent Auto 14.7 % (25-40); Mean Corpuscular HGB Conc 33.3 % (30-36); Mean Corpuscular Hemoglobin 30.5 PG (26-34); Mean Corpuscular Volume 91.6 fL (80-100); Monocytes Absolute Auto 1000 /uL (0-900); Monocytes Percent Auto 6.8 % (3-14); Neutrophils Absolute Auto 11500 /uL (1500-7000); Neutrophils Percent Auto 77.5 % (50-75); Platelet Count 765 X10^3/uL (150-400); Red Cell Distribution Width 13.9 % (11.6-14.8); White Blood Cell Count 14.9 X10^3/uL (4.5-11.0)
[2021-09-02 14:17] LABS: Alanine Aminotransferase 23 IU/L (<35); Albumin 3.9 g/dL (3.5-5.0); Albumin Globulin Ratio 1.4 (1.0-2.8); Alkaline Phosphatase 86 U/L (38-126); Aspartate Aminotransferase 24 IU/L (14-36); BUN Creatinine Ratio 12.9 (6-22); Bilirubin Total 0.6 mg/dL (0.2-1.3); Blood Urea Nitrogen 11 mg/dL (7-17); Calcium 9.8 mg/dL (8.4-10.2); Carbon Dioxide 24 mmol/L (22-32); Chloride 102 mmol/L (98-107); Estimated Glomerular Filt Rate > 60.0 mL/min (>60); Globulin 2.8 g/dL (1.7-4.1); Glucose 98 mg/dL (80-110); HEMOLYSIS < 15 (0-50); Lipase 83 U/L (23-300); Potassium 5.1 mmol/L (3.4-5.1); Sodium 137 mmol/L (137-145); Total Protein 6.7 g/dL (6.3-8.2)
[2021-09-02 14:22] LABS: RBC Morphology Normal Morphology
[2021-09-02 14:25] LABS: Platelet Estimate Increased on smear
== END ==
PROVIDERS: PCP Family Medicine; Referring Provider Family Medicine; Visit Provider Family Medicine
DX: R10.9 Unspecified abdominal pain (principal); K52.9 Noninfective gastroenteritis and colitis, unspecified
CPT/HCPCS: 36415; 80053; 83690; 85025

== ENCOUNTER → 2021-09-03 07:31 | Outpatient (CLI) | payer MEDICARE, OTHER, SELFPAY ==
[2021-09-03] VITALS (7 sets, daily range): BP systolic 153–180; BP diastolic 81–92; PULSE 79–88; RESP 22–30; O2SAT 97–98
--- NOTE | 2021-09-03 07:32 | DI.CT.S_ITS ---
PROCEDURE: CT ABDOMEN PELVIS W CON INDICATIONS: colitis follow up TECHNIQUE: After the administration of oral and IV contrast, axial sections were acquired from the lung bases to the pubic symphysis. Coronal and sagittal reformats were performed. For radiation dose reduction, the following was used: automated exposure control, adjustment of mA and/or kV according to patient size. COMPARISON: [facility], CT, CT ABDOMEN PELVIS W CON, 08/19/2021, 11:50. FINDINGS: Image quality: Excellent. Lung bases: Scattered bibasilar atelectasis are seen. Heart: No significant findings. ABDOMEN: Liver: Hepatic steatosis is again seen, no discrete hepatic lesion.. Gallbladder: Gallbladder is surgically absent. Biliary ducts: Unremarkable. Pancreas: Unremarkable. Spleen: Unremarkable. Adrenal Glands: Unremarkable. Kidneys and Ureters: Unremarkable. Stomach and Bowel: Compared to previous study, there is interval development of a loculated fluid collection with internal pockets of air and air-fluid level in right lower quadrant adjacent to ileocecal junction with mass effect on surrounding structures and measures up to 7 x 6.8 x 7.8 cm in size series 2, image 59 and series 4, image 29. Significant wall thickening in the adjacent ascending colon and hepatic flexure is seen. Extensive adjacent pericolonic fat stranding is seen. Mild fecal stasis in transverse colon and descending colon is seen. Sigmoid diverticulosis is noted without evidence of acute diverticulitis. Peritoneum: No abnormal intraperitoneal fluid. No free air. Ventral Wall: No hernia. Abdominal Nodes: No retroperitoneal or mesenteric adenopathy by size criteria. Vessels: Aorta and inferior vena cava are normal in size. PELVIS: Pelvic Organs: Unremarkable. Bladder: Unremarkable. Pelvic Nodes: No enlarged lymph nodes. Miscellaneous: No inguinal hernias are seen. Bones: No suspicious bony lesion. No acute vertebral body compression fracture. Grade 1 anterolisthesis of L4 on L5 is again seen. Degenerative disc disease in lower lumbar spine is again noted. IMPRESSION: 1. Finding is consistent with interval bowel perforation in right lower quadrant with interval development of a 7 x 6.8 x 7.8 cm abscess collection. Given previous CT finding, this likely represent perforated appendicitis versus colitis near ileocecal junction. Underlying malignant process cannot be excluded. GI follow-up and possible endoscopic correlation is recommended. 2. There is no bowel obstruction. No free fluid or free air. 3. Rest of the findings are essentially unchanged from prior study. Findings were reported to Dr. Burton at 9:09 a.m. On 09/03/2021. Patient will be instructed to go to the emergency room for management. Dictated by: Allen Rowell M.D. on 09/03/2021 at 8:55 Approved by: Allen Rowell M.D. on 09/03/2021 at 9:09
--- NOTE | 2021-09-03 17:00 | PC.NURSE ---
Transfer of Care... Called and spoke to Fariha CHRISTIANSEN, gave report to her. Dr. Blanc is going to call surgery service to put in post care instructions on the abdominal drain that was placed. Pt tolerated procedure fairly well. She did not have sedation but has orders for pain medication and Fariha CHRISTIANSEN will be able to give her some. Pt taken back to her room via transport/Raheem.
== END ==
PROVIDERS: PCP Family Medicine; Referring Provider Family Medicine; Visit Provider Family Medicine
DX: K52.9 Noninfective gastroenteritis and colitis, unspecified (principal); K76.0 Fatty (change of) liver, not elsewhere classified; Z90.49 Acquired absence of other specified parts of digestive tract
CPT/HCPCS: 74177

== ENCOUNTER 2021-09-03 09:14 | Inpatient (IN) | payer MEDICARE, OTHER, SELFPAY ==
[2021-09-03] VITALS (17 sets, daily range): BP systolic 134–178; BP diastolic 75–95; PULSE 74–84; RESP 16–25; TEMP 36.6–37.5; O2SAT 95–99; BMI 31.5
--- NOTE | 2021-09-03 09:36 | ED_ITS ---
HPI - Abdominal Pain General Chief Complaint: Abdominal Pain Stated Complaint: ABDOMINAL PAIN/COLITIS Time Seen by Provider: 09/03/21 09:20 Source: patient and family Mode of arrival: Ambulatory History of Present Illness HPI narrative: 76-year-old female nonsmoker with relatively benign chronic medical history presents with her at the request of her primary care provider. She had been seen and evaluated here in the emergency department on August 19 with abdominal pain, largely in her right lower quadrant. She had reassuring labs and a CT scan was performed which noted colonic wall thickening concerning for infectious versus inflammatory colitis. She was discharged with a prescription for Augmentin and oxycodone. She finished her full course of antibiotics a few days ago and contacted her primary care provider stating that she still isn't feeling much better. She has significant abdominal pain in the right lower quadrant which is present most of the time and seems to be worse when she is curled up and improves when she stretches out. She has been NPO since last evening other than the oral contrast which was ordered as part of her CT scan this morning, which noted a 7 x 8 cm abscess, presumably from perforated appendicitis versus colitis at the ileocecal junction. She denies fever but has been sweaty at night. She is nauseated but has had no vomiting. She is passing gas and is having bowel movements. She has had full vaccination for COVID. Related Data Home Medications Medication Instructions Recorded Confirmed cholecalciferol (vitamin D3) 25 25 mcg PO DAILY 06/17/21 09/03/21 mcg (1,000 unit) capsule calcium carb-vitamin D3 ER 600 mg 1 tab PO DAILY 09/03/21 09/03/21 (1,500 mg)-500 unit tablet,ER 24 hr glucosamine sulf dipot 1 cap PO DAILY 09/03/21 09/03/21 chlr,msm,chond 550 mg-C 30 mg-nano 1 mg capsule (Glucosamine Chondroitin) phytonadione (vitamin K1) 1 mg/0.5 1 mg PO DAILY 09/03/21 09/03/21 mL injection solution Previous Rx's Medication Instructions Recorded levothyroxine 88 mcg capsule 88 mcg PO DAILY #90 cap 01/13/21 estradiol 10 mcg vaginal tablet See Rx Instructions .ROUTE 02/03/21 (Yuvafem) .COMPLEX #4 tab acetaminophen 325 mg capsule 650 mg PO QID PRN #60 cap 05/18/21 (Tylenol) Allergies Allergy/AdvReac Type Severity Reaction Status Date / Time adhesive Allergy Mild RASH Verified 09/03/21 09:36 PAPER TAPE OK cephalexin [From Keflex] Allergy Mild Rash Verified 09/03/21 09:36 Macrolide Antibiotics AdvReac Intermediate INTERFERS Verified 09/03/21 09:36 W/ HER MYCOPHENOLATE NSAIDS (Non-Steroidal AdvReac Intermediate SUGGESTED Verified 09/03/21 09:36 Anti-Inflamma NOT TO TAKE D/T KIDNEY PROBLEMS codeine AdvReac Mild DROWSY Verified 09/03/21 09:36 macadamian nuts Allergy Mild mouth ramos Uncoded 09/03/21 09:01 OYSTER AdvReac Mild NOSE NUMB Uncoded 09/03/21 09:01 Review of Systems Review of Systems Narrative: GENERAL: Denies chills, fatigue, malaise, fever, sweats. HEENT: Denies sinus pain, ear pain, sore throat, difficulty swallowing, dizziness. RESPIRATORY: Denies dyspnea, cough, wheezing, hemoptysis, sputum. CARDIOVASCULAR: Denies chest pain, palpitations, orthopnea, edema, GASTROINTESTINAL: See HPI : Denies dysuria, frequency, incontinence, hematuria, urinary retention. MUSCULOSKELETAL: denies weakness, joint pain, or bony pain SKIN: Denies rash, skin lesions, or other NEUROLOGIC: Denies weakness, headache, numbness, change in speech, confusion, seizures, incoordination. PSYCHIATRIC: No concerning psychosocial issues. 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) Plantar fasciitis Sinus drainage Systemic fungal infection Systemic fungal infection affecting skin (1978) Tinnitus (~1993) Toe fracture (2007) Upper arm fracture (1950) UTI (urinary tract infection) Surgical History Anesthesia History of elective (1969) History of gynecologic surgery (2013) History of knee replacement (12/2014) History of surgery on arm (1950) History of toe surgery (2007) History of tonsillectomy (1995) Status post arthroscopy (1995) Status post biopsy (2011) Status post breast biopsy (2006) Status post laparoscopy (2011) Status post vaginal hysterectomy (1979) Family History Grandmother Hyperlipidemia Hypertension Mother Stroke Rheumatoid arthritis Personal history of twin in prior Grandfather Prostate cancer Grandmother Hyperlipidemia Hypertension Brother Crohn's disease Father Brain cancer Social History household members: spouse Smoking Status: Former smoker alcohol intake: current Smoking Status: Former smoker alcohol intake frequency: 3 or more drinks per day Substance Use Type: does not use Exam Narrative Exam Narrative: GENERAL: [76 year old patient appears stated age. Well-developed patient, in mild distress. HEAD: Atraumatic. Normocephalic. EYES: Pupils equal round and reactive. Extraocular motions intact. No scleral icterus. No injection or drainage. ENT: Nose without bleeding, purulent drainage. Throat without erythema, tonsillar hypertrophy or exudate. Airway patent. NECK: Trachea midline. Non tender CARDIOVASCULAR: Regular rate and rhythm without murmurs, gallops, or rubs. RESPIRATORY: Clear to auscultation. Breath sounds equal bilaterally. No wheezes, rales, or rhonchi. GASTROINTESTINAL: Abdomen soft, tender to palpate in the right lower quadrant nondistended. EXTREMITIES: No edema or joint tenderness. BACK: Nontender without deformity or crepitance. No flank tenderness. NEURO: AOx3. SKIN: No rash or erythema of visible areas Initial Vital Signs Initial Vital Signs: Vital Signs Temperature 98.3 F 09/03/21 09:20 Pulse Rate 82 09/03/21 09:20 Respiratory Rate 19 09/03/21 09:20 Blood Pressure 178/89 H 09/03/21 09:20 Pulse Oximetry 99 09/03/21 09:20 Course Orders Ordered: ED Orders 09/03/21 09:30 COVID19 - ADMIT (EVENT STAFF swab/PCR) Stat 09/03/21 09:55 Complete Blood Count AUTO DIFF Stat Comprehensive Metabolic Panel Stat Lactate (Lactic Acid) Stat Lipase Stat 09/03/21 10:33 Urine Microscopic Stat 09/03/21 10:35 Blood Culture Stat Fentanyl (Fentanyl 100 Mcg/2 Ml Inj) 25 mcg IV Q1H PRN PRN Reason: Pain, Severe (7-10) Last Admin: 09/03/21 10:57 Dose: 25 mcg Documented by: MAYRA Discontinued Medications Lactated Ringer's (Lactated Ringers) 1,000 mls @ 1,000 mls/hr IV BOLUS ONE Stop: 09/03/21 10:19 Last Infusion: 09/03/21 12:09 Dose: 0 mls/hr Documented by: Admin: 09/03/21 10:11 Dose: 1,000 mls/hr Documented by: GEOFFREY Piperacillin Sod/Tazobactam (Sod 4.5 gm/ Sodium Chloride) 100 mls @ 200 mls/hr IV NOW ONE Stop: 09/03/21 09:21 Last Infusion: 09/03/21 12:10 Dose: 0 mls/hr Documented by: Admin: 09/03/21 10:17 Dose: 200 mls/hr Documented by: GEOFFREY Ondansetron HCl (Ondansetron 4 Mg/2 Ml Inj) 4 mg IV NOW ONE Stop: 09/03/21 10:50 Last Admin: 09/03/21 10:56 Dose: 4 mg Documented by: MAYRA Consultations Consultation #1: Dr. Klein (surgery) has been at the bedside since early in the case. Please see his note for details, but he has coordinated with radiology to get the abscess drained by radiology this afternoon. Vital Signs Vital signs: Vital Signs - 8 hr 09/03/21 09:20 09/03/21 09:58 09/03/21 10:00 Temperature 98.3 F Pulse Rate 82 82 83 Respiratory Rate 19 Blood Pressure 178/89 H 157/82 H Pulse Oximetry 99 98 97 09/03/21 10:28 09/03/21 10:30 09/03/21 11:00 Temperature Pulse Rate 81 81 77 Respiratory Rate 21 23 25 H Blood Pressure 165/76 H 156/80 H Pulse Oximetry 97 97 98 09/03/21 11:30 09/03/21 12:08 09/03/21 12:30 Temperature Pulse Rate 77 75 75 Respiratory Rate 22 23 21 Blood Pressure 156/79 H 154/79 H 145/75 H Pulse Oximetry 98 98 98 MDM - Abdominal Pain Lab Data Result diagrams: 09/03/21 09:55 09/03/21 09:55 Labs: Lab Results 09/03/21 09/03/21 09/03/21 Range/Units 09:30 09:55 09:55 WBC 12.6 H (4.5-11.0) X10^3/uL RBC 4.28 (4.0-5.2) X10^6/uL Hgb 13.3 (12.0-16.0) g/dL Hct 38.9 (36-46) % MCV 90.9 (80-100) fL MCH 31.0 (26-34) PG MCHC 34.1 (30-36) % RDW 14.0 (11.6-14.8) % Plt Count 687 H (150-400) X10^3/uL Neut % (Auto) 80.6 H (50-75) % Lymph % (Auto) 11.5 L (25-40) % Dougherty % (Auto) 7.2 (3-14) % Eos % (Auto) 0.4 L (2-4) % Baso % (Auto) 0.3 (0-2) % Neut # (Auto) 92704 H (7936-5292) /uL Lymph # (Auto) 1400 (4642-0845) /uL Dougherty # (Auto) 900 (0-900) /uL Eos # (Auto) 0 (0-450) /uL Baso # (Auto) 0 (0-100) /uL Sodium 135 L (137-145) mmol/L Potassium 4.0 (3.4-5.1) mmol/L Chloride 103 (98-107) mmol/L Carbon Dioxide 22 (22-32) mmol/L BUN 10 (7-17) mg/dL Creatinine 0.77 (0.52-1.04) mg/dL Estimated GFR > 60.0 (>60) mL/min BUN/Creatinine Ratio 13.0 (6-22) Glucose 114 H (80-110) mg/dL Lactate (0.7-2.1) mmol/L Calcium 9.2 (8.4-10.2) mg/dL Total Bilirubin 0.7 (0.2-1.3) mg/dL AST 25 (14-36) IU/L ALT 23 (<35) IU/L Alkaline Phosphatase 81 (38-126) U/L Total Protein 7.1 (6.3-8.2) g/dL Albumin 3.8 (3.5-5.0) g/dL Globulin 3.3 (1.7-4.1) g/dL Albumin/Globulin Ratio 1.2 (1.0-2.8) Lipase 61 (23-300) U/L Urine RBC (0-5/HPF) Urine WBC (0-5/HPF) Ur Squamous Epith Cells (0-5/HPF) Ur Transition Epith Cell (0-5/HPF) Urine Bacteria (None) Ur Culture Indicated? SARS-CoV-2 (PCR) Negative (Negative) 09/03/21 09/03/21 Range/Units 09:55 10:33 WBC (4.5-11.0) X10^3/uL RBC (4.0-5.2) X10^6/uL Hgb (12.0-16.0) g/dL Hct (36-46) % MCV (80-100) fL MCH (26-34) PG MCHC (30-36) % RDW (11.6-14.8) % Plt Count (150-400) X10^3/uL Neut % (Auto) (50-75) % Lymph % (Auto) (25-40) % Dougherty % (Auto) (3-14) % Eos % (Auto) (2-4) % Baso % (Auto) (0-2) % Neut # (Auto) (1193-6842) /uL Lymph # (Auto) (1933-9530) /uL Dougherty # (Auto) (0-900) /uL Eos # (Auto) (0-450) /uL Baso # (Auto) (0-100) /uL Sodium (137-145) mmol/L Potassium (3.4-5.1) mmol/L Chloride (98-107) mmol/L Carbon Dioxide (22-32) mmol/L BUN (7-17) mg/dL Creatinine (0.52-1.04) mg/dL Estimated GFR (>60) mL/min BUN/Creatinine Ratio (6-22) Glucose (80-110) mg/dL Lactate 1.0 (0.7-2.1) mmol/L Calcium (8.4-10.2) mg/dL Total Bilirubin (0.2-1.3) mg/dL AST (14-36) IU/L ALT (<35) IU/L Alkaline Phosphatase (38-126) U/L Total Protein (6.3-8.2) g/dL Albumin (3.5-5.0) g/dL Globulin (1.7-4.1) g/dL Albumin/Globulin Ratio (1.0-2.8) Lipase (23-300) U/L Urine RBC 0-1/hpf (0-5/HPF) Urine WBC 0-1/hpf (0-5/HPF) Ur Squamous Epith Cells 1-5 /hpf (0-5/HPF) Ur Transition Epith Cell 0-1/hpf (0-5/HPF) Urine Bacteria None seen (None) Ur Culture Indicated? Cult not indicated SARS-CoV-2 (PCR) (Negative) Point of care testing: Urine Dip Bedside Urine Glucose Negative Bedside Urine Bilirubin - Negative Bedside Urine Ketone - Negative Urine Specific [place] 1.005 Bedside Urine Occult Blood +/- Bedside Urine pH 6.0 Bedside Urine Protein - Negative Bedside Urine Nitrite - Negative Bedside Urine Leukocytes - Negative Esterase Imaging Data CT scan - abdomen/pelvis: Radiologist's Impression: Launch?[place] [address] CT Scan Report Signed Patient: Elsy Malave MR#: [id number] : 1945 Acct:[id number] Age/Sex: 76 / F Date of Service: 09/03/21 Loc: CT Accession Number: [id number] ?? Procedure: CT abdomen pelvis w con Ordering Provider: Sallie Burton D.O. PROCEDURE:? CT ABDOMEN PELVIS W CON ? INDICATIONS:? colitis follow up ? TECHNIQUE:? After the administration of oral and IV contrast, axial sections were acquired from the lung bases to the pubic symphysis.? Coronal and sagittal reformats were performed.? For radiation dose reduction, the following was used:? automated exposure control, adjustment of mA and/or kV according to patient size. ? COMPARISON:? [facility], CT, CT ABDOMEN PELVIS W CON, 08/19/2021, 11:50. ? FINDINGS:? Image quality:? Excellent.? ? Lung bases:? Scattered bibasilar atelectasis are seen. Heart:? No significant findings. ? ? ABDOMEN: Liver:? Hepatic steatosis is again seen, no discrete hepatic lesion..? ? Gallbladder:? Gallbladder is surgically absent. Biliary ducts:? Unremarkable.? ? Pancreas:? Unremarkable.? ? Spleen:? Unremarkable.? ? Adrenal Glands:? Unremarkable.? ? Kidneys and Ureters:? Unremarkable.? ? ? Stomach and Bowel:? Compared to previous study, there is interval development of a loculated fluid collection with internal pockets of air and air-fluid level in right lower quadrant adjacent to ileocecal junction with mass effect on surrounding structures and measures up to 7 x 6.8 x 7.8 cm in size series 2, image 59 and series 4, image 29. Significant wall thickening in the adjacent ascending colon and hepatic flexure is seen.? Extensive adjacent pericolonic fat stranding is seen.? Mild fecal stasis in transverse colon and descending colon is seen.? Sigmoid diverticulosis is noted without evidence of acute diverticulitis. Peritoneum:? No abnormal intraperitoneal fluid.? No free air.? ? Ventral Wall: ? No hernia.? Abdominal Nodes:? No retroperitoneal or mesenteric adenopathy by size criteria.? Vessels:? Aorta and inferior vena cava are normal in size.? ? PELVIS: Pelvic Organs:? Unremarkable.? ? Bladder:? Unremarkable.? ? Pelvic Nodes: No enlarged lymph nodes.? Miscellaneous: No inguinal hernias are seen. ? ? ? Bones:? No suspicious bony lesion.? No acute vertebral body compression fracture.? Grade 1 anterolisthesis of L4 on L5 is again seen.? Degenerative disc disease in lower lumbar spine is again noted. ? ? IMPRESSION:? ? 1. Finding is consistent with interval bowel perforation in right lower quadrant with interval development of a 7 x 6.8 x 7.8 cm abscess collection.? Given previous CT finding, this likely represent perforated appendicitis versus colitis near ileocecal junction.? Underlying malignant process cannot be excluded.? GI follow-up and possible endoscopic correlation is recommended.? 2. There is no bowel obstruction.? No free fluid or free air. 3.? Rest of the findings are essentially unchanged from prior study. ? Findings were reported to Dr. Burton at 9:09 a.m. On 09/03/2021.? Patient will be instructed to go to the emergency room for management.? ? Dictated by: Allen Rowell M.D. on 09/03/2021 at 8:55 ? ? Approved by: Allen Rowell M.D. on 09/03/2021 at 9:09 ? Discharge Plan Departure Patient Disposition: Admitted As Inpatient Clinical Impression: Abdominal abscess Prescriptions: No Action estradiol [Yuvafem] 10 mcg tablet See Rx Instructions .ROUTE .COMPLEX Qty: 4 0RF Dose Instruction: INSERT 1 TABLET (10 MCG) VAGINALLY TWICE WEEKLY Rx Instructions: INSERT 1 TABLET (10 MCG) VAGINALLY TWICE WEEKLY levothyroxine 88 mcg capsule 88 mcg PO DAILY Qty: 90 3RF cholecalciferol (vitamin D3) 25 mcg (1,000 unit) capsule 25 mcg PO DAILY 0RF acetaminophen [Tylenol] 325 mg capsule 650 mg PO QID PRN (Reason: pain) Qty: 60 0RF Vitamin K1 1 mg/0.5 mL Solution 1 mg PO DAILY 0RF All Day Calcium 600 mg(1,500mg) -500 unit Tablet Extended Release 24 Hr 1 tab PO DAILY 0RF Glucosamine Chondroitin 550-30-1 mg Capsule 1 cap PO DAILY 0RF Referrals: Sallie Burton DO [Primary Care Provider] -
[2021-09-03] MEDS: LACTATED RINGERS 1,000 ML 1000 ML IV (10:11)
[2021-09-03 10:17] LABS: Add Manual Diff / Slide Review NO; Basophils Absolute Auto 0 /uL (0-100); Basophils Percent Auto 0.3 % (0-2); Eosinophils Absolute Auto 0 /uL (0-450); Eosinophils Percent Auto 0.4 % (2-4); Hematocrit 38.9 % (36-46); Hemoglobin 13.3 g/dL (12.0-16.0); Lymphocytes Absolute Auto 1400 /uL (1100-4500); Lymphocytes Percent Auto 11.5 % (25-40); Mean Corpuscular HGB Conc 34.1 % (30-36); Mean Corpuscular Volume 90.9 fL (80-100); Monocytes Absolute Auto 900 /uL (0-900); Monocytes Percent Auto 7.2 % (3-14); Neutrophils Absolute Auto 10100 /uL (1500-7000); Neutrophils Percent Auto 80.6 % (50-75); Platelet Count 687 X10^3/uL (150-400); Red Blood Cell Count 4.28 X10^6/uL (4.0-5.2); White Blood Cell Count 12.6 X10^3/uL (4.5-11.0)
[2021-09-03] MEDS: PIPERACILLIN/TAZO 4.5 GM in SODIUM CHLORIDE 0.9% 100 ML 200 ML IV (10:17)
[2021-09-03 10:28] LABS: Alanine Aminotransferase 23 IU/L (<35); Albumin 3.8 g/dL (3.5-5.0); Albumin Globulin Ratio 1.2 (1.0-2.8); Alkaline Phosphatase 81 U/L (38-126); Aspartate Aminotransferase 25 IU/L (14-36); Bilirubin Total 0.7 mg/dL (0.2-1.3); Blood Urea Nitrogen 10 mg/dL (7-17); Calcium 9.2 mg/dL (8.4-10.2); Carbon Dioxide 22 mmol/L (22-32); Chloride 103 mmol/L (98-107); Estimated Glomerular Filt Rate > 60.0 mL/min (>60); Globulin 3.3 g/dL (1.7-4.1); Glucose 114 mg/dL (80-110); HEMOLYSIS < 15 (0-50); Lipase 61 U/L (23-300); Sodium 135 mmol/L (137-145); Total Protein 7.1 g/dL (6.3-8.2)
[2021-09-03 10:36] LABS: COVID19 - ADMIT (NP swab/PCR) Negative (Negative)
[2021-09-03 10:55] LABS: Bacteria Urine None Seen; RBC Urine 0-1/HPF (0-5/HPF); Squamous Epithelial Cell Urine 1-5 /HPF (0-5/HPF); Transitional Epi Cells Urine 0-1/HPF (0-5/HPF); WBC Urine 0-1/HPF (0-5/HPF)
[2021-09-03 10:56] LABS: Culture Indicated Urine Cult Not Indicated
[2021-09-03] MEDS: ONDANSETRON 4 MG/2 ML INJ IV (10:56)
[2021-09-03] MEDS: fentaNYL 100 MCG/2 ML INJ 25 MCG IV (10:57)
--- NOTE | 2021-09-03 13:24 | DI.CT.S_ITS ---
PROCEDURE: CT DRAIN APPENDICEAL ABSCESS COMPARISON: [facility], CT, CT ABDOMEN PELVIS W CON, 08/19/2021, 11:50. [facility], CT, CT ABDOMEN PELVIS W CON, 09/03/2021, 8:40. INDICATIONS: Perforated appendicitis DESCRIPTION OF PROCEDURE: Informed consent was obtained. The patient was prepped and draped in the standard sterile fashion. Multiple CT images were used to localize the abnormality. Using local anesthetic and Seldinger technique, a needle was placed into the collection. Following guidewire placement, fascial dilators were used to dilate the tract and a drainage catheter was placed in the usual manner. The drainage tube was secured to the skin and a surgical dressing was applied. LOCATION: Right lower quadrant. TUBE SPECIFICATIONS: 10 Syriac MEDICATIONS: 20 cc lidocaine COMPLICATIONS: None. No blood loss. FINDINGS: Right lower quadrant heterogeneous fluid collection measuring 7.2 x 6.5 cm, (2/44). Oral contrast is seen within the colon. No oral contrast is seen within the collection. Pigtail drain is in the expected location within the collection. 50 cc fecal in/purulent/serosanguineous fluid was aspirated. The fluid is viscus. CONCLUSION: Successful CT-guided percutaneous peritoneal drainage procedure. 50 cc purulent fluid aspirated. Results were communicated with Dr. Srini Klein. Dictated by: Roberth Blanc M.D. on 09/03/2021 at 17:25 Approved by: Roberth Blanc M.D. on 09/03/2021 at 17:30
[2021-09-03 13:58] LABS: INR 1.1 (0.9-1.3); Prothrombin Time 12.8 SECONDS (10.1-12.7)
[2021-09-03 14:01] LABS: PTT Partial Thromboplastin Tim 34 SECONDS (26.4-36.2)
--- NOTE | 2021-09-03 16:30 | PC.NURSE ---
Addendum entered by Fariha Alicea R.N. 09/03/21 18:27: Patient back from drain placement. in and showed instruction on how to flush drain and he wants it done q shift. dressing applied to area and it is putting out pink bloody and pus colored drainage. Patient given 0.5mg of iv dilaudid for pain and this has been helpful to patient. Original Note: 1500- Patient to floor at 1500 for abcess in possible appendix/colitis at illeosequal junction per [employer]. She is alert and oriented x3, and independent in her room. Her skin is all clear and she is steady on her feet. She denies pain for this rn but her discomfort is in her r.lower quadrant. Patient does have leaking issues when she urinates and wears a pad, pull up given to her and she has it on now. Patient down to radiology for drain placement around 1615. Will start her iv antibiotic of zosyn when she gets back from procedure.
[2021-09-03] MEDS: HYDROMORPHONE 0.5 MG INJ IV (17:15)
[2021-09-03] MEDS: PIPERACILLIN/TAZO 3.375 GM in SODIUM CHLORIDE 0.9% 100 ML 25 ML IV (17:45)
--- NOTE | 2021-09-03 17:58 | PM.HP.1 ---
History of Present Illness History of Present Illness Date Patient Seen: 09/03/21 Time Patient Seen: 17:58 Chief complaint: Perforated appendicitis Narrative: Elsy is a 76-year-old woman who presented initially on August 19. CT scan obtained at that time was interpreted as colitis and she was discharged home with oral Augmentin. Today she returns to the ER with persistent right lower quadrant pain and a repeat CT scan shows a perforated appendicitis with an abscess in the right lower quadrant. A percutaneous drain was placed by Radiology with purulent drainage. She has never had a colonoscopy. 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) Plantar fasciitis Sinus drainage Systemic fungal infection Systemic fungal infection affecting skin (1978) Tinnitus (~1993) Toe fracture (2007) Upper arm fracture (1950) UTI (urinary tract infection) Surgical History Anesthesia History of elective (1969) History of gynecologic surgery (2013) History of knee replacement (12/2014) History of surgery on arm (1950) History of toe surgery (2007) History of tonsillectomy (1995) Status post arthroscopy (1995) Status post biopsy (2011) Status post breast biopsy (2006) Status post laparoscopy (2011) Status post vaginal hysterectomy (1979) Family & Social History Family History Grandmother Hyperlipidemia Hypertension Mother Stroke Rheumatoid arthritis Personal history of twin in prior Grandfather Prostate cancer Grandmother Hyperlipidemia Hypertension Brother Crohn's disease Father Brain cancer Social History: household members spouse Safety & Behavioral: Feels Safe in Current Yes Environment Been Physically Hurt or No Threatened By a Person Suicidal Ideation Description None Suicide Plan Description No Plan Tobacco & Substance use: Smoking Status Former smoker alcohol intake current alcohol intake frequency 3 or more drinks per day Substance Use Type does not use Meds Home Medications and Allergies Home Medications Medication Instructions Recorded Confirmed Type levothyroxine 88 mcg capsule 88 mcg PO DAILY #90 cap 01/13/21 09/03/21 Rx estradiol 10 mcg vaginal tablet See Rx Instructions .ROUTE 02/03/21 09/03/21 Rx (Yuvafem) .COMPLEX #4 tab acetaminophen 325 mg capsule 650 mg PO QID PRN #60 cap 05/18/21 09/03/21 Rx (Tylenol) cholecalciferol (vitamin D3) 25 25 mcg PO DAILY 06/17/21 09/03/21 History mcg (1,000 unit) capsule calcium carb-vitamin D3 ER 600 mg 1 tab PO DAILY 09/03/21 09/03/21 History (1,500 mg)-500 unit tablet,ER 24 hr glucosamine sulf dipot 1 cap PO DAILY 09/03/21 09/03/21 History chlr,msm,chond 550 mg-C 30 mg-nano 1 mg capsule (Glucosamine Chondroitin) phytonadione (vitamin K1) 1 mg/0.5 1 mg PO DAILY 09/03/21 09/03/21 History mL injection solution Allergies Allergy/AdvReac Type Severity Reaction Status Date / Time adhesive Allergy Mild RASH Verified 09/03/21 09:36 PAPER TAPE OK cephalexin [From Keflex] Allergy Mild Rash Verified 09/03/21 09:36 Macrolide Antibiotics AdvReac Intermediate INTERFERS Verified 09/03/21 09:36 W/ HER MYCOPHENOLATE NSAIDS (Non-Steroidal AdvReac Intermediate SUGGESTED Verified 09/03/21 09:36 Anti-Inflamma NOT TO TAKE D/T KIDNEY PROBLEMS codeine AdvReac Mild DROWSY Verified 09/03/21 09:36 macadamian nuts Allergy Mild mouth ramos Uncoded 09/03/21 09:01 OYSTER AdvReac Mild NOSE NUMB Uncoded 09/03/21 09:01 Exam Vital Signs (past 8 hours): - 09/03/21 10:00 09/03/21 10:28 09/03/21 10:30 Temperature Pulse Rate 83 81 81 Respiratory Rate 21 23 Blood Pressure 157/82 H 165/76 H 156/80 H Pulse Oximetry 97 97 97 09/03/21 11:00 09/03/21 11:30 09/03/21 12:08 Temperature Pulse Rate 77 77 75 Respiratory Rate 25 H 22 23 Blood Pressure 156/79 H 154/79 H Pulse Oximetry 98 98 98 09/03/21 12:30 09/03/21 13:00 09/03/21 14:04 Temperature Pulse Rate 75 77 74 Respiratory Rate 21 24 Blood Pressure 145/75 H 134/75 Pulse Oximetry 98 97 96 09/03/21 14:30 09/03/21 15:00 09/03/21 15:40 Temperature 98.6 F Pulse Rate 80 80 84 Respiratory Rate 23 23 16 Blood Pressure 149/95 H Pulse Oximetry 97 96 95 09/03/21 17:09 Temperature 98.6 F Pulse Rate 77 Respiratory Rate 18 Blood Pressure 151/93 H Pulse Oximetry 96 Oxygen Delivery Method Room Air Oxygen Flow Rate 0 Narrative Exam Narrative: Nontoxic Abdomen soft, moderately tender near the drain site without peritoneal findings Drain has some blood tinged purulent drainage Objective Labs Result Diagrams: 09/03/21 09:55 09/03/21 09:55 Labs: Laboratory Results - last 24 hr 09/03/21 09/03/21 09/03/21 09:30 09:55 09:55 WBC 12.6 H RBC 4.28 Hgb 13.3 Hct 38.9 MCV 90.9 MCH 31.0 MCHC 34.1 RDW 14.0 Plt Count 687 H Neut % (Auto) 80.6 H Lymph % (Auto) 11.5 L [place] % (Auto) 7.2 Eos % (Auto) 0.4 L Baso % (Auto) 0.3 Neut # (Auto) 83375 H Lymph # (Auto) 1400 [place] # (Auto) 900 Eos # (Auto) 0 Baso # (Auto) 0 PT INR APTT Sodium 135 L Potassium 4.0 Chloride 103 Carbon Dioxide 22 BUN 10 Creatinine 0.77 Estimated GFR > 60.0 BUN/Creatinine Ratio 13.0 Glucose 114 H Lactate Calcium 9.2 Total Bilirubin 0.7 AST 25 ALT 23 Alkaline Phosphatase 81 Total Protein 7.1 Albumin 3.8 Globulin 3.3 Albumin/Globulin Ratio 1.2 Lipase 61 Urine RBC Urine WBC Ur Squamous Epith Cells Ur Transition Epith Cell Urine Bacteria Ur Culture Indicated? SARS-CoV-2 (PCR) Negative 09/03/21 09/03/21 09/03/21 09:55 09:55 10:33 WBC RBC Hgb Hct MCV MCH MCHC RDW Plt Count Neut % (Auto) Lymph % (Auto) [place] % (Auto) Eos % (Auto) Baso % (Auto) Neut # (Auto) Lymph # (Auto) [place] # (Auto) Eos # (Auto) Baso # (Auto) PT 12.8 H INR 1.1 APTT 34 Sodium Potassium Chloride Carbon Dioxide BUN Creatinine Estimated GFR BUN/Creatinine Ratio Glucose Lactate 1.0 Calcium Total Bilirubin AST ALT Alkaline Phosphatase Total Protein Albumin Globulin Albumin/Globulin Ratio Lipase Urine RBC 0-1/hpf Urine WBC 0-1/hpf Ur Squamous Epith Cells 1-5 /hpf Ur Transition Epith Cell 0-1/hpf Urine Bacteria None seen Ur Culture Indicated? Cult not indicated SARS-CoV-2 (PCR) Assessment & Plan Assessment and plan (1) Appendiceal abscess: Status: Acute Plan Flush drain with 10 cc of normal saline Q shift until there is minimal output Zoj luisn Will start clear liquid diet tonight. She will need a colonoscopy down the road after she is fully recovered from her acute abscess Time Spent With Patient Critical Care time: I spent a total of [] minutes of critical care time on this patient's care today; this time is exclusive of procedural time.
[2021-09-03 20:10] LABS: Add Manual Diff / Slide Review NO; Basophils Absolute Auto 100 /uL (0-100); Eosinophils Absolute Auto 0 /uL (0-450); Eosinophils Percent Auto 0.3 % (2-4); Hematocrit 38.3 % (36-46); Hemoglobin 12.8 g/dL (12.0-16.0); Lymphocytes Absolute Auto 1400 /uL (1100-4500); Mean Corpuscular HGB Conc 33.6 % (30-36); Mean Corpuscular Hemoglobin 30.5 PG (26-34); Mean Corpuscular Volume 90.7 fL (80-100); Monocytes Absolute Auto 800 /uL (0-900); Monocytes Percent Auto 6.6 % (3-14); Neutrophils Absolute Auto 10200 /uL (1500-7000); Neutrophils Percent Auto 81.1 % (50-75); Platelet Count 674 X10^3/uL (150-400); Red Blood Cell Count 4.22 X10^6/uL (4.0-5.2); Red Cell Distribution Width 14.2 % (11.6-14.8); White Blood Cell Count 12.6 X10^3/uL (4.5-11.0)
[2021-09-03 20:59] LABS: BUN Creatinine Ratio 10.8 (6-22); Blood Urea Nitrogen 8 mg/dL (7-17); Calcium 9.3 mg/dL (8.4-10.2); Carbon Dioxide 27 mmol/L (22-32); Chloride 105 mmol/L (98-107); Estimated Glomerular Filt Rate > 60.0 mL/min (>60); Glucose 109 mg/dL (80-110); HEMOLYSIS 36 (0-50); Magnesium 2.1 mg/dL (1.6-2.3); Phosphorous 4.9 mg/dL (2.8-4.1); Potassium 4.7 mmol/L (3.4-5.1); Sodium 137 mmol/L (137-145)
[2021-09-03] MEDS: ACETAMINOPHEN 325 MG TABLET 650 MG PO (23:43)
[2021-09-04] MEDS: PIPERACILLIN/TAZO 3.375 GM in SODIUM CHLORIDE 0.9% 100 ML 25 ML IV ×2 (01:24→10:15)
[2021-09-04 06:00] VITALS: BP 142/72; PULSE 72; RESP 16; TEMP 36.8; O2SAT 98
[2021-09-04 07:25] VITALS: BP 121/75; PULSE 75; RESP 16; TEMP 36.6; O2SAT 98
--- NOTE | 2021-09-04 07:38 | PC.NURSE ---
pt alert and oriented, denies pain, drain intact with drsg cdi. vss call light within reach will monitor
--- NOTE | 2021-09-04 09:32 | CM.DANOTE ---
DCP: Case received, EMR reviewed and met with patient. Introduced self and role. Was able to obtain information regarding patient's baseline activity status prior to hospitalization. DCP assessment completed with information currently available. Patient is a 76 year old female who admitted yesterday afternoon to the care of the hospitalist team. PCP: Dr. Burton. Payer: confirmed: Medicare/ for Life. Patient came to the hospital secondary to having abdominal discomfort. Patient indicated, she had been here before for appendicitis, and went home with antibiotics. She returned to the hospital with increased pain and was diagnosed with perforated appendicitis. Patient currently has a drain. Met with patient in her room. She is pleasant. She resides here in [place] with her spouse, Aditya. 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 P: DCP to continue to follow for any needs. Patient should be able to go home when she is deemed medically stable. Maggie Rosas RN/Driving School Instructor Discharge Planning/Care Management Advanced directive, confirm from FAMILY Start: 09/03/21 16:17 Freq: Q24H Status: Active Protocol: Document 09/03/21 19:00 JK (Rec: 09/03/21 22:37 JK [id number]) Advance Directive, confirm on record Time 20:00 Person contacted pt Copy received No CM Discharge Assessment Start: 09/04/21 09:31 Freq: Status: Active Protocol: Document 09/04/21 09:31 (Rec: 09/04/21 09:32 [id number]) Discharge Planning Assessment Assigned Hand Profiler Maggie Rosas RN/Driving School Instructor Advance Directives? Yes Advance Directives on File No History Provided By Patient,Medical Record Prior Living Arrangements House Household Members spouse Type of transporation used prior to Drives own vehicle admit Independent with ADL's Yes Is patient alert and oriented? Yes Caregiver for Another No Discharge Plan Home Transportation Arrangement Spouse Referrals Initiated None needed Whiteboard Updated in Patient Room with Yes name and ext. # of Hand Profiler Review Status In Process Next Review Type Continued Stay Review
[2021-09-04] MEDS: ACETAMINOPHEN 325 MG TABLET 650 MG PO (10:29)
--- NOTE | 2021-09-04 10:46 | PC.NURSE ---
Addendum entered by Abeba Quezada R.N. 09/04/21 15:25: Pt has adam general diet well. Demostrated flushing drain and knowledge of documenting output plan for dc home. Original Note: pt has been up in chair reading drain to gravity patent and intact white bloody fluid. SBA to br. tylenol for pain will monitor
--- NOTE | 2021-09-04 12:45 | PM.PN.1 ---
Subjective Subjective Date Patient Seen: 09/04/21 Time Patient Seen: 12:53 Interval history: Feeling better today. Minimal abdominal pain. She is taking Tylenol for pain. She is passing flatus. Exam Vital Signs (past 8 hours): - 09/04/21 06:00 09/04/21 07:25 Temperature 98.2 F 97.9 F Pulse Rate 72 75 Respiratory Rate 16 16 Blood Pressure 142/72 H 121/75 Pulse Oximetry 98 98 Oxygen Delivery Method Room Air Oxygen Flow Rate 0 Narrative Exam Narrative: Abdomen soft Drain with scant purulent output Objective Labs Result Diagrams: 09/03/21 20:05 09/03/21 20:05 Labs: Laboratory Results - last 24 hr 09/03/21 09/03/21 09/03/21 09:55 20:05 20:05 WBC 12.6 H RBC 4.22 Hgb 12.8 Hct 38.3 MCV 90.7 MCH 30.5 MCHC 33.6 RDW 14.2 Plt Count 674 H Neut % (Auto) 81.1 H Lymph % (Auto) 11.0 L [place] % (Auto) 6.6 Eos % (Auto) 0.3 L Baso % (Auto) 1.0 Neut # (Auto) 03176 H Lymph # (Auto) 1400 [place] # (Auto) 800 Eos # (Auto) 0 Baso # (Auto) 100 PT 12.8 H INR 1.1 APTT 34 Sodium 137 Potassium 4.7 Chloride 105 Carbon Dioxide 27 BUN 8 Creatinine 0.74 Estimated GFR > 60.0 BUN/Creatinine Ratio 10.8 Glucose 109 Calcium 9.3 Phosphorus 4.9 H Magnesium 2.1 PFSH Medical History Chicken pox Cholelithiasis Hayfever HTN (hypertension) Hypothyroidism (~1969) Kidney disease Kidney failure (2011) Measles Mumps 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 Osteoarthritis (~1989) Osteoarthritis of left knee (08/27/14) 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) Plantar fasciitis Sinus drainage Systemic fungal infection Systemic fungal infection affecting skin (1978) Tinnitus (~1993) Toe fracture (2007) Upper arm fracture (1950) UTI (urinary tract infection) Surgical History Anesthesia History of elective (1969) History of gynecologic surgery (2013) History of knee replacement (12/2014) History of surgery on arm (1950) History of toe surgery (2007) History of tonsillectomy (1995) Status post arthroscopy (1995) Status post biopsy (2011) Status post breast biopsy (2006) Status post laparoscopy (2011) Status post vaginal hysterectomy (1979) Family History Grandmother Hyperlipidemia Hypertension Mother Stroke Rheumatoid arthritis Personal history of twin in prior Grandfather Prostate cancer Grandmother Hyperlipidemia Hypertension Brother Crohn's disease Father Brain cancer Social History household members: spouse Smoking Status: Former smoker alcohol intake: current Assessment & Plan Assessment and plan (1) Appendiceal abscess: Status: Acute Plan Drain was flushed with 20 cc of normal saline and bag was placed to gravity If she tolerates regular diet she can be discharged home with the drain later today Will arrange an outpatient CT scan and a follow-up visit to remove the drain once output has decreased to less than 20 mL per day Time Spent With Patient Critical Care time: I spent a total of [] minutes of critical care time on this patient's care today; this time is exclusive of procedural time.
--- NOTE | 2021-09-04 13:28 | PM.DS.1 ---
History of Present Illness History of Present Illness Chief complaint: Perforated appendicitis Narrative: Elsy is a 76-year-old woman who presented initially on August 19. CT scan obtained at that time was interpreted as colitis and she was discharged home with oral Augmentin. Today she returns to the ER with persistent right lower quadrant pain and a repeat CT scan shows a perforated appendicitis with an abscess in the right lower quadrant. A percutaneous drain was placed by Radiology with purulent drainage. She has never had a colonoscopy. Discharge Providers Provider Date of admission: 09/03/21 13:17 Discharge Date: 09/04/21 Primary care physician: Sallie Burton DO Discharge provider: Srini Klein MD Summary Hospital Course Discharge Diagnosis: Perforated appendicitis with abscess Hospital Course: The patient was admitted on 09/03/2021 with perforated appendicitis and the right lower quadrant abscess. She was started on Zosyn. A drain was placed by Radiology. The patient improved. Diet was advanced and she was discharged home with the drain on 09/04/2021 with instructions on drain care. She was told to flush the drain with saline once a day. She was instructed to record drain output daily. She will be managed as an outpatient for the remainder of her course. This will involve follow-up CT scan at some point, possibly prescription for new antibiotics pending microbiology results and eventually drain removal. Exam Vital Signs (past 8 hours): - 09/04/21 06:00 09/04/21 07:25 Temperature 98.2 F 97.9 F Pulse Rate 72 75 Respiratory Rate 16 16 Blood Pressure 142/72 H 121/75 Pulse Oximetry 98 98 Oxygen Delivery Method Room Air Oxygen Flow Rate 0 Objective Labs Result Diagrams: 09/03/21 20:05 09/03/21 20:05 Labs: Laboratory Results - last 24 hr 09/03/21 09/03/21 09/03/21 09:55 20:05 20:05 WBC 12.6 H RBC 4.22 Hgb 12.8 Hct 38.3 MCV 90.7 MCH 30.5 MCHC 33.6 RDW 14.2 Plt Count 674 H Neut % (Auto) 81.1 H Lymph % (Auto) 11.0 L [place] % (Auto) 6.6 Eos % (Auto) 0.3 L Baso % (Auto) 1.0 Neut # (Auto) 99033 H Lymph # (Auto) 1400 [place] # (Auto) 800 Eos # (Auto) 0 Baso # (Auto) 100 PT 12.8 H INR 1.1 APTT 34 Sodium 137 Potassium 4.7 Chloride 105 Carbon Dioxide 27 BUN 8 Creatinine 0.74 Estimated GFR > 60.0 BUN/Creatinine Ratio 10.8 Glucose 109 Calcium 9.3 Phosphorus 4.9 H Magnesium 2.1 PFSH Medical History Chicken pox Cholelithiasis Hayfever HTN (hypertension) Hypothyroidism (~1969) Kidney disease Kidney failure (2011) Measles Mumps 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 Osteoarthritis (~1989) Osteoarthritis of left knee (08/27/14) 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) Plantar fasciitis Sinus drainage Systemic fungal infection Systemic fungal infection affecting skin (1978) Tinnitus (~1993) Toe fracture (2007) Upper arm fracture (1950) UTI (urinary tract infection) Surgical History Anesthesia History of elective (1969) History of gynecologic surgery (2013) History of knee replacement (12/2014) History of surgery on arm (1950) History of toe surgery (2007) History of tonsillectomy (1995) Status post arthroscopy (1995) Status post biopsy (2011) Status post breast biopsy (2006) Status post laparoscopy (2011) Status post vaginal hysterectomy (1979) Family History Grandmother Hyperlipidemia Hypertension Mother Stroke Rheumatoid arthritis Personal history of twin in prior Grandfather Prostate cancer Grandmother Hyperlipidemia Hypertension Brother Crohn's disease Father Brain cancer Social History household members: spouse Smoking Status: Former smoker alcohol intake: current Discharge Plan Discharge Plan Patient Disposition: Home Provider Discharge Comment: Record drain output daily. Flush drain with at least 10 cc of normal saline daily. We will contact you to arrange a follow-up CT scan and a follow-up visit to remove the drain. We will prescribe antibiotics if needed once microbiology results are back. Discharge orders & Medications Prescriptions: Continued estradiol [Yuvafem] 10 mcg tablet See Rx Instructions .ROUTE .COMPLEX Qty: 4 0RF Dose Instruction: INSERT 1 TABLET (10 MCG) VAGINALLY TWICE WEEKLY Rx Instructions: INSERT 1 TABLET (10 MCG) VAGINALLY TWICE WEEKLY levothyroxine 88 mcg capsule 88 mcg PO DAILY Qty: 90 3RF cholecalciferol (vitamin D3) 25 mcg (1,000 unit) capsule 25 mcg PO DAILY 0RF acetaminophen [Tylenol] 325 mg capsule 650 mg PO QID PRN (Reason: pain) Qty: 60 0RF phytonadione (vitamin K1) 1 mg/0.5 mL Solution 1 mg PO DAILY 0RF calcium carbonate-vitamin D3 600 mg(1,500mg) -500 unit Tablet Extended Release 24 Hr 1 tab PO DAILY 0RF Glucosamine Chondroitin 550-30-1 mg Capsule 1 cap PO DAILY 0RF Follow up/Referrals: Sallie Burton DO [Primary Care Provider] - Diet/Activity/Treatments Diet: Regular Skin/Wound/Dressing Care Report to your healthcare provider any signs of infection, such as:: chills, fever, night sweats, increased pain, unusual drainage and unusual redness Discharge Data Primary Care Provider: Sallie Burton
[2021-09-04 13:35] VITALS: BP 150/77; PULSE 76; RESP 16; TEMP 36.7; O2SAT 99
== END 2021-09-04 16:10 | disposition home or self-care (01) | DRG 373 ==
LOC: ED 13:17 → AC 13:19
PROVIDERS: Admitting Provider Surgery; Emergency Provider Emergency Medicine; PCP Family Medicine; Referring Provider Emergency Medicine; Visit Provider Surgery
DX: K35.33 Acute appendicitis with perforation, localized peritonitis, and gangrene, with abscess (principal); I10 Essential (primary) hypertension; E03.9 Hypothyroidism, unspecified; Z20.822 Contact with and (suspected) exposure to COVID-19; Z87.891 Personal history of nicotine dependence; K52.9 Noninfective gastroenteritis and colitis, unspecified; K76.0 Fatty (change of) liver, not elsewhere classified; Z90.49 Acquired absence of other specified parts of digestive tract
CPT/HCPCS: 36415; 49406; 74177; 80048; 80053; 81003; 81015; 83605; 83690; 83735; 84100; 85025; 85610; 85730; 87040; 87070; 87075; 87076; 87077; 87186; 87205; 87635; 93005; 93010; 96365; 96366; 96375; 99222; 99238; 99284; C9803; J1170; J2405; J2543; J3010

== ENCOUNTER → 2021-09-14 13:13 | Outpatient (CLI) | payer MEDICARE, OTHER, SELFPAY ==
[2021-09-03 15:30] VITALS: BMI 31.5
--- NOTE | 2021-09-14 13:16 | DI.CT.S_ITS ---
PROCEDURE: CT ABDOMEN PELVIS W CON INDICATIONS: Abscess f/u TECHNIQUE: After the administration of oral and IV contrast, axial sections were acquired from the lung bases to the pubic symphysis. Coronal and sagittal reformats were performed. For radiation dose reduction, the following was used: automated exposure control, adjustment of mA and/or kV according to patient size. COMPARISON: [facility], CT, CT DRAIN APPENDICEAL ABSCESS, 09/03/2021, 16:19. [facility], CT, CT ABDOMEN PELVIS W CON, 09/03/2021, 8:40. FINDINGS: Image quality: Excellent. Lung bases: Basilar atelectasis. No pleural effusion. Heart: No significant findings. ABDOMEN: Liver: Unremarkable. Gallbladder: Absent. Biliary ducts: Unremarkable. Pancreas: Unremarkable. Spleen: Unremarkable. Adrenal Glands: No nodule. Kidneys and Ureters: No hydronephrosis. Right kidney extrarenal pelvis. Stomach and Bowel: No small bowel obstruction. Diverticulosis. Right lower quadrant loculated fluid collection consistent with appendiceal abscess measures 6 x 3.6 x 3.5 cm, estimated volume of 39 cc, (01/07 and ), previously 9.2 x 7.1 x 5.9 cm when remeasured in a similar fashion, estimated volume of 200 cc. The right lower quadrant percutaneous drain is centered within the inferior portion of the collection. There is a small amount of gas within the collection. There is oral contrast which extends to the level of the terminal ileum but not into the cecum. Peritoneum: No ascites. No free air. Ventral Wall: No hernia. Ventral abdominal wall scar. Abdominal Nodes: No retroperitoneal or mesenteric adenopathy by size criteria. Vessels: Aorta and inferior vena cava are normal in size. Moderate calcified plaque. PELVIS: Pelvic Organs: Uterus is absent. Bladder: Distended. Pelvic Nodes: No enlarged lymph nodes. Miscellaneous: No inguinal hernias are seen. Bones: No compression fracture. Mild DDD. IMPRESSION: 1. Right lower quadrant appendiceal abscess is decreased in size and measures 6 cm and 39 cc (previously 9.2 cm and 200 cc). Percutaneous pigtail drain is within the collection. 2. No small bowel obstruction. 3. Diverticulosis. Dictated by: Roberth Blanc M.D. on 09/14/2021 at 15:21 Approved by: Roberth Blanc M.D. on 09/14/2021 at 15:37
== END ==
PROVIDERS: PCP Family Medicine; Referring Provider Surgery; Visit Provider Surgery
DX: K35.33 Acute appendicitis with perforation, localized peritonitis, and gangrene, with abscess (principal); K57.90 Diverticulosis of intestine, part unspecified, without perforation or abscess without bleeding
CPT/HCPCS: 74177

== ENCOUNTER → 2021-09-16 14:12 | Outpatient (CLI) | payer MEDICARE, OTHER, SELFPAY ==
[2021-09-03 15:30] VITALS: BMI 31.5
[2021-09-16 15:05] LABS: Add Manual Diff / Slide Review NO; Basophils Absolute Auto 0 /uL (0-100); Basophils Percent Auto 0.5 % (0-2); Eosinophils Absolute Auto 200 /uL (0-450); Eosinophils Percent Auto 2.5 % (2-4); Hematocrit 40.4 % (36-46); Hemoglobin 13.2 g/dL (12.0-16.0); Lymphocytes Absolute Auto 1700 /uL (1100-4500); Lymphocytes Percent Auto 23.3 % (25-40); Mean Corpuscular HGB Conc 32.8 % (30-36); Mean Corpuscular Hemoglobin 30.3 PG (26-34); Mean Corpuscular Volume 92.4 fL (80-100); Monocytes Absolute Auto 500 /uL (0-900); Monocytes Percent Auto 7.2 % (3-14); Neutrophils Absolute Auto 4900 /uL (1500-7000); Neutrophils Percent Auto 66.5 % (50-75); Platelet Count 371 X10^3/uL (150-400); Red Blood Cell Count 4.36 X10^6/uL (4.0-5.2); Red Cell Distribution Width 14.3 % (11.6-14.8); White Blood Cell Count 7.3 X10^3/uL (4.5-11.0)
== END ==
PROVIDERS: PCP Family Medicine; Referring Provider Surgery; Visit Provider Surgery
DX: K35.33 Acute appendicitis with perforation, localized peritonitis, and gangrene, with abscess (principal)
CPT/HCPCS: 36415; 85025

== ENCOUNTER → 2021-10-06 12:49 | Outpatient (CLI) | payer MEDICARE, OTHER, SELFPAY ==
[2021-10-06 09:59] VITALS: BMI 31.5
[2021-10-06 14:15] LABS: BUN Creatinine Ratio 17.1 (6-22); Blood Urea Nitrogen 14 mg/dL (7-17); Estimated Glomerular Filt Rate > 60.0 mL/min (>60)
== END ==
PROVIDERS: PCP Family Medicine; Referring Provider Surgery; Visit Provider Surgery
DX: K35.33 Acute appendicitis with perforation, localized peritonitis, and gangrene, with abscess (principal)
CPT/HCPCS: 36415; 82565; 84520

== ENCOUNTER → 2021-10-07 14:22 | Outpatient (CLI) | payer MEDICARE, OTHER, SELFPAY ==
[2021-09-03 15:30] VITALS: BMI 31.5
[2021-10-06 09:59] VITALS: BMI 31.5
--- NOTE | 2021-10-07 14:23 | DI.CT.S_ITS ---
PROCEDURE: CT ABDOMEN PELVIS W CON INDICATIONS: APPENDICEAL ABSCESS TECHNIQUE: After the administration of oral and intravenous contrast, axial sections were acquired from the lung bases to the pubic symphysis. Coronal and sagittal reformats were performed. For radiation dose reduction, the following was used: automated exposure control, adjustment of mA and/or kV according to patient size. COMPARISON:[facility], CT, CT ABDOMEN PELVIS W CON, 09/03/2021, 8:40. [facility], CT, CT ABDOMEN PELVIS W CON, 08/19/2021, 11:50. [facility], CT, CT ABDOMEN PELVIS W CON, 09/14/2021, 14:45. FINDINGS: Image quality: Excellent. Lung bases: Unremarkable. Heart: No significant findings. ABDOMEN: Liver: Unremarkable. Gallbladder: Surgically absent Biliary ducts: Unremarkable. Pancreas: Unremarkable. Spleen: Unremarkable. Adrenal Glands: Unremarkable. Kidneys and Ureters: Unremarkable. Stomach and Bowel: Diverticulosis. No diverticulitis. No dilated loops. No significant wall thickening. Peritoneum: This most recent prior study, the right lower quadrant drain is been removed. There is a well-formed peripherally enhancing thick-walled abscess currently present measuring approximately 5.3 x 4.2 cm. Additionally, there is a relatively thin abscess extending through the abdominal wall into the subcutaneous fat along the tract of the previous drain which measures 2.3 x 3.8 cm. It may be phlegmon and not liquid abscess. Ventral Wall: No hernia. Abdominal Nodes: No retroperitoneal or mesenteric adenopathy by size criteria. Vessels: Aorta and inferior vena cava are normal in size. Incidental note is made of a dilated left gonadal vein indicating reflux with left pelvic varicosities. PELVIS: Pelvic Organs: Remote hysterectomy. Bladder: Unremarkable. Pelvic Nodes: No enlarged lymph nodes. Miscellaneous: No inguinal hernias are seen. Bones: Lumbar degenerative change. No lytic or blastic bony lesions. No compression fractures. IMPRESSION: 1. Persistent or recurrent right lower quadrant abscess measuring 5.3 x 4.2 cm. 2. Development of associated phlegmon or abscess extending through the left anterior abdominal wall into the subcutaneous fat. Dictated by: Kenan Douglas M.D. on 10/07/2021 at 16:03 Approved by: Kenan Douglas M.D. on 10/07/2021 at 16:20
== END ==
PROVIDERS: PCP Family Medicine; Referring Provider Surgery; Visit Provider Surgery
DX: K35.33 Acute appendicitis with perforation, localized peritonitis, and gangrene, with abscess (principal); K57.90 Diverticulosis of intestine, part unspecified, without perforation or abscess without bleeding
CPT/HCPCS: 74177; Q9967

== ENCOUNTER → 2021-10-20 11:36 | Outpatient (CLI) | payer MEDICARE, OTHER, SELFPAY ==
[2021-10-06 09:59] VITALS: BMI 31.5
--- NOTE | 2021-10-20 11:42 | DI.CT.S_ITS ---
PROCEDURE: CT ABDOMEN PELVIS W CON INDICATIONS: PERFERRATED APPENDIX TECHNIQUE: After the administration of oral and IV contrast, axial sections were acquired from the lung bases to the pubic symphysis. Coronal and sagittal reformats were performed. For radiation dose reduction, the following was used: automated exposure control, adjustment of mA and/or kV according to patient size. COMPARISON: [facility], CT, CT ABDOMEN PELVIS W CON, 10/07/2021, 15:22. FINDINGS: Image quality: Excellent. Lung bases: Unremarkable. Heart: No significant findings. ABDOMEN: Liver: Unremarkable. Gallbladder: Unremarkable. Biliary ducts: Unremarkable. Pancreas: Unremarkable. Spleen: Unremarkable. Adrenal Glands: Unremarkable. Kidneys and Ureters: Unremarkable. Stomach and Bowel: Right lower quadrant and capsulated fluid collection measuring 6 x 4.3 x 4 cm, ( and 01/11), estimated volume of 54 cc. Previously 5.3 x 3.8 x 3.8 cm on 10/07/2021 an estimated volume of 38 cc. Concern that the collection may communicate with the cecum through a ruptured appendix. The tract in the skin no longer demonstrates internal fluid density. Diverticulosis. No small bowel obstruction. Peritoneum: No abnormal intraperitoneal fluid. No free air. Ventral Wall: No hernia. Abdominal Nodes: No retroperitoneal or mesenteric adenopathy by size criteria. Vessels: Aorta and inferior vena cava are normal in size. Anel-[id number] plaque. PELVIS: Pelvic Organs: Uterus is absent. Bladder: Unremarkable. Pelvic Nodes: No enlarged lymph nodes. Miscellaneous: No inguinal hernias are seen. Bones: No compression fracture. Mild DDD. IMPRESSION: 1. Right lower quadrant appendiceal abscess measuring 6 cm and approximately 54 cc. This is mildly increased in size compared to 10/07/2021. There may be persistent communication with the cecum. 2. The fluid within the drainage tract in the right subcutaneous fat is decreased. 3. Diverticulosis. Dictated by: Roberth Blanc M.D. on 10/20/2021 at 14:49 Approved by: Roberth Blanc M.D. on 10/20/2021 at 15:00
== END ==
PROVIDERS: PCP Family Medicine; Referring Provider Surgery; Visit Provider Surgery
DX: K35.33 Acute appendicitis with perforation, localized peritonitis, and gangrene, with abscess (principal); K57.90 Diverticulosis of intestine, part unspecified, without perforation or abscess without bleeding; Z20.822 Contact with and (suspected) exposure to COVID-19
CPT/HCPCS: 74177; 87635; 99213; Q9967

== ENCOUNTER → 2021-10-20 13:20 | Outpatient (CLI) | payer MEDICARE, OTHER, SELFPAY ==
[2021-10-06 09:59] VITALS: BMI 31.5
[2021-10-20 14:00] LABS: COVID19 -Nasal RAPID Negative (Negative)
== END ==
PROVIDERS: PCP Family Medicine; Visit Provider Surgery
DX: Z01.812 Encounter for preprocedural laboratory examination (principal); Z20.822 Contact with and (suspected) exposure to COVID-19
CPT/HCPCS: 87635

== ENCOUNTER 2021-10-23 23:41 | Inpatient (IN) | payer MEDICARE, OTHER, SELFPAY ==
[2021-10-06 09:59] VITALS: BMI 31.5
[2021-10-21 08:31] VITALS: BMI 25.5
[2021-10-22] VITALS (11 sets, daily range): BP systolic 121–152; BP diastolic 75–94; PULSE 82–89; RESP 15–18; TEMP 36.1–37.3; O2SAT 94–98; BMI 25.5
--- NOTE | 2021-10-22 | PATH_ITS ---
[facility] Accession Number: [id number] . 01 Material submitted: . colon - TERMINAL ILEUM AND RIGHT COLON . 02 Diagnosis: Terminal Ileum and Right Colon, Right Hemicolectomy: 1. Appendiceal endometriosis with perforation and serositis. 2. Margins appear viable. 3. No evidence of dysplasia or malignancy. MRV 10/28/2021 1509 Local . 02 Electronically signed: . Asha Garsia MD, Pathologist NPI- [id number] . 01 Gross description: . Received in formalin, labeled with the patient's name and terminal ileum and right colon, is an intact segment of bowel. Terminal ileum (7.5 cm length, 5.0 cm circumference), cecum and ascending colon (30 cm length, 8.0 cm circumference). The serosa adjacent to the appendix is red-dunbar, ragged, cauterized with patchy exudate, and the remaining attached appendix (2.0 cm length, 0.6 cm diameter) is distally disrupted with exposed lumen and purple-dunbar, dusky mucosa. The ragged serosal surface is inked blue. Sectioning the appendix reveals focally hemorrhagic cut surface with pink and slightly chalky, yellow-dunbar mucosa throughout the appendix. The perforation site is 7.5 cm to proximal resection margin, 16.5 cm to distal resection margin, and immediately adjacent to the closest radial margin. The appendix is entirely submitted from distal disrupted portion to proximal. The remaining segment covered with pink-dunbar, normally folded, glistening mucosa. Unremarkable ileocecal valve. No additional lesions identified. Four pink-dunbar lymph nodes sampled, 0.3-0.5 cm in greatest dimension. . SUMMARY OF SECTIONS: A1: Proximal resection margin, shave, one piece. A2: Distal resection margin, shave, two pieces. A3: Radial margin, shave and en face, one piece. A4-A8: Appendix cross-sections, from distal to proximal direction, multiple pieces. A9-A11: Ragged serosal surface where appendix is perforated, one piece each. A12: Four lymph nodes total, two intact, one inked blue and bisected, one bisected and without ink. ([id number]) /FRR 10/23/2021 1518 Local . 02 Microscopic: . Immunohistochemical stains are performed to characterize glands of interest. All control stains show appropriate reactivity. . Results, Block A4: Estrogen receptor (ER): Positive in the glands of interest. PAX-8: Positive in the glands of interest. . Interpretation: The combined morphology and immunophenotype of the glands is compatible with endometriosis. . * This test was developed and its performance characteristics determined by [facility]. It has not been cleared or approved by the U.S. Food and Drug Administration. The FDA has determined that such clearance or approval is not necessary. This test is used for clinical purposes. It should not be regarded as investigational or for research. . 02 Pathologist provided ICD-10: K35.20, N80.9 . 02 CPT . 012579, F82282, X48424 Specimen Comment: A courtesy copy of this report has been sent to [phone] Performed at: 01 [facility] [address] [place] [address] [id number] MD Kit Lucas MD Phone: [phone] Performed at: 02 [facility] [address] [place] [address] [id number] MD Asha Garsia MD Phone: [phone]
[2021-10-22] MEDS: LACTATED RINGERS 1,000 ML 42 ML IV ×3 (10:20→16:12)
[2021-10-22] MEDS: ACETAMINOPHEN 325 MG TABLET 975 MG PO (10:29)
--- NOTE | 2021-10-22 11:04 | PM.PREOP ---
Pre-operative Note COVID-19 COVID-19 status: Negative Result date/Date tested (Pos, Neg/Pending): 10/21/21 Criteria for continued procedure: Expected advancement of disease process, Possibility delay results in more complex future surgery or treatment and Deterioration of the patient's condition or overall health Interval Note History & Physical reviewed/Exam performed by Physician: Yes Changes to H&P: Yes H&P completed within 30 days and has changed as indicated here:: Reviewed most recent CT scan with patient. Discussed the possibility of requiring an exploratory laparotomy open surgery and even possibly a ileocecectomy or right hemicolectomy if the degree of inflammation is extensive in the anatomy is unclear or if the tissue is unhealthy for a simple appendectomy. Goal of course would be laparoscopic appendectomy or even a partial cecectomy rather than full bowel resection ASA Class (for procedural sedation): III
[2021-10-22] MEDS: LACTATED RINGERS 1,000 ML 120 ML IV (12:00)
[2021-10-22] MEDS: PIPERACILLIN/TAZO 3.375 GM in SODIUM CHLORIDE 0.9% 100 ML 25 ML IV (12:23)
--- NOTE | 2021-10-22 12:37 | SUR.OPER ---
Supine on padded OR bed, head on pillow, arms padded and tucked at sides, legs uncrossed, safety belt at thigh, tape over blanket over lower legs .
[2021-10-22] MEDS: BUPIVACAINE 0.25% (PF) VIAL 30 ML INJ (12:50)
[2021-10-22] MEDS: LIDOCAINE 1% 20 ML INJ (12:52)
[2021-10-22] MEDS: EPINEPHrine 1 MG/ML 0.2 MG IM (12:54)
[2021-10-22] MEDS: BUPIVACAINE LIPOSOME 266 MG/20 ML VIAL INJ (15:13)
--- NOTE | 2021-10-22 16:05 | PM.OP.1 ---
Operative Date/Time/Diagnoses Date of procedure: 10/22/21 Time of procedure: 16:05 Pre-op diagnosis: Appendiceal abscess Post-op diagnosis: same Procedure & Clinicians Procedure: Right hemicolectomy Same procedure as scheduled: No Surgeon: Srini Klein Anesthesia Type: General Operative Notes Findings: Abscess behind the cecum and terminal ileum Estimated Blood Loss (mL): 30 Procedure in detail: The patient was given Zosyn. The patient was brought to the operating room, placed on the table in the supine position and general endotracheal anesthesia was induced. The abdomen was prepped and draped in the usual fashion and the old drain site which was draining purulent fluid was covered with a Tegaderm. A time-out was performed. We made a 1 cm infraumbilical incision and dissected down to the fascia which was scored with cautery. A Anahi clamp was attached to the umbilical stalk and the peritoneum was pierced with a Peon clamp. The Nadine port was placed and the abdomen was insufflated to 15 mmHg. Camera was inserted there was no evidence of injury from the entry. Next 5 mm ports were placed in the suprapubic and left lower quadrant under direct vision. Later in the case an additional port was placed in the right upper quadrant. We could see that there was fibrotic tissue around the cecum and we entered an abscess pocket lateral and posterior to the cecum. The pus was suctioned out with suction customer success advocate. It was difficult to be sure that the cecum was not injured because of the dense fibrotic tissue in chronic inflammatory change in the vicinity of the abscess cavity. A decision was made to open and perform a right hemicolectomy. First, we took down the hepatic flexure laparoscopically. The duodenum was visualized and protected. The cecum and terminal ileum were very adherent to the pelvic brim sidewall and could not be taken down safely laparoscopically and so we removed the laparoscopic ports and created a low midline incision that reached just above the umbilicus. The Micha wound retractor was placed and the Bookwalter retractor was utilized. Finger fracture technique was used to medialized the terminal ileum and cecum. We were then able to perform a right hemicolectomy from the terminal ileum to the proximal transverse colon using 3 firings of the linear MARTITA stapler with a blue load. We created a [id number] functional end-to-end anastomosis. The staple line was imbricated with multiple interrupted 3-0 silk sutures. The mesenteric defect was closed with a running 2-0 Vicryl. We irrigated the abdomen with 5 L of warm saline. A 19 round Frandy drain was placed in the abscess cavity and run along the right pericolic gutter behind the anastomosis. This was brought out through the left lower quadrant stab incision and sutured to the skin with the nylon stitch. Exparel was injected into the fascia and fascia was closed with a running 0 PDS with multiple interrupted 0 Vicryl internal retention sutures. The skin was closed with kati. Dressings were applied around the incisions. We further opened the old drain site where the purulent drainage was coming from and packed it with iodoform gauze and covered it with 4x4s. Patient was awakened brought to recovery room. Post-operative Condition: stable Disposition: PACU
[2021-10-22] MEDS: OXYCODONE IR 5 MG TABLET PO (17:27)
[2021-10-22] MEDS: HYDROCODONE/ACET 5/325 TABLET 1 TAB PO (19:24)
[2021-10-22] MEDS: LACTATED RINGERS 1,000 ML 100 ML IV (20:20)
[2021-10-22] MEDS: LIDOCAINE VISCOUS 2% 15 ML SOLUTION PO (20:25)
[2021-10-22] MEDS: HYDROMORPHONE 1 MG INJ 0.5 MG IV (20:32)
--- NOTE | 2021-10-22 20:48 | PC.NURSE ---
Pt arrived from PACU at 1800. Pt is Alert and Ox3. VSS, afebrile on RA. Dressings to abdomen x4 with hector drain to LLQ. No output at this time. Shadow dainage to aquacell. Pt c/o throat pain and abdominal 6-03/27. MD notified for viscous lidocaine, instructed patient not to drink but to dap sore throat with q tip. She reports minimal pain relief with po hydrocodone for abdominal pain and better pain relief with IV prn 0.5mg hydromorphone. BS decreased hypoactive. She denies passing gas, and denies n/v. Tolerated chicken broth well, per MD cleared for full liquid diet. Pt admission assessment completed. LR at 100ml/hr
[2021-10-23] MEDS: HYDROCODONE/ACET 5/325 TABLET 1 TAB PO ×5 (00:25→22:09)
[2021-10-23 01:10] VITALS: BP 141/84; PULSE 79; RESP 18; TEMP 36.2; O2SAT 98
[2021-10-23 03:33] VITALS: BP 147/79; PULSE 77; RESP 18; TEMP 36.1; O2SAT 97
[2021-10-23] MEDS: HYDROMORPHONE 1 MG INJ 0.5 MG IV ×3 (03:36→22:48)
[2021-10-23] MEDS: LACTATED RINGERS 1,000 ML 100 ML IV (05:53)
[2021-10-23 06:03] LABS: Add Manual Diff / Slide Review NO; Basophils Absolute Auto 100 /uL (0-100); Basophils Percent Auto 0.4 % (0-2); Eosinophils Absolute Auto 0 /uL (0-450); Hematocrit 33.9 % (36-46); Hemoglobin 11.4 g/dL (12.0-16.0); Lymphocytes Absolute Auto 1300 /uL (1100-4500); Lymphocytes Percent Auto 9.3 % (25-40); Mean Corpuscular HGB Conc 33.5 % (30-36); Mean Corpuscular Hemoglobin 29.6 PG (26-34); Mean Corpuscular Volume 88.3 fL (80-100); Monocytes Absolute Auto 800 /uL (0-900); Monocytes Percent Auto 6.2 % (3-14); Neutrophils Absolute Auto 11500 /uL (1500-7000); Neutrophils Percent Auto 84.1 % (50-75); Platelet Count 388 X10^3/uL (150-400); Red Blood Cell Count 3.84 X10^6/uL (4.0-5.2); Red Cell Distribution Width 13.4 % (11.6-14.8); White Blood Cell Count 13.7 X10^3/uL (4.5-11.0)
[2021-10-23 06:17] LABS: BUN Creatinine Ratio 15.5 (6-22); Blood Urea Nitrogen 11 mg/dL (7-17); Calcium 8.7 mg/dL (8.4-10.2); Carbon Dioxide 29 mmol/L (22-32); Chloride 106 mmol/L (98-107); Estimated Glomerular Filt Rate > 60.0 mL/min (>60); Glucose 146 mg/dL (80-110); HEMOLYSIS < 15 (0-50); Potassium 4.4 mmol/L (3.4-5.1); Sodium 137 mmol/L (137-145)
[2021-10-23 07:35] VITALS: BP 136/78; PULSE 82; RESP 18; TEMP 36.3; O2SAT 98
--- NOTE | 2021-10-23 11:02 | P.PN_ITS ---
Subjective Subjective Date Patient Seen: 10/23/21 Time Patient Seen: 11:02 Interval history: Elsy is in good spirits today. She has tolerated full liquid diet and is passing gas. Pain is well controlled. Exam Vital Signs (past 8 hours): - 10/23/21 03:33 10/23/21 07:35 Temperature 97.0 F L 97.3 F L Pulse Rate 77 82 Respiratory Rate 18 18 Blood Pressure 147/79 H 136/78 Pulse Oximetry 97 98 Oxygen Delivery Method Room Air Oxygen Flow Rate 0 Narrative Exam Narrative: Abdomen soft Drain output is serosanguineous Objective Labs Result Diagrams: 10/23/21 05:32 10/23/21 05:32 Labs: Laboratory Results - last 24 hr 10/23/21 10/23/21 05:32 05:32 WBC 13.7 H RBC 3.84 L Hgb 11.4 L Hct 33.9 L MCV 88.3 MCH 29.6 MCHC 33.5 RDW 13.4 Plt Count 388 Neut % (Auto) 84.1 H Lymph % (Auto) 9.3 L [place] % (Auto) 6.2 Eos % (Auto) 0.0 L Baso % (Auto) 0.4 Neut # (Auto) 95259 H Lymph # (Auto) 1300 [place] # (Auto) 800 Eos # (Auto) 0 Baso # (Auto) 100 Sodium 137 Potassium 4.4 Chloride 106 Carbon Dioxide 29 BUN 11 Creatinine 0.71 Estimated GFR > 60.0 BUN/Creatinine Ratio 15.5 Glucose 146 H Calcium 8.7 PFSH Medical History (Updated 10/23/21 @ 11:09 by Srini Klein MD) Chicken pox Cholelithiasis Hayfever HTN (hypertension) Hypothyroidism (~1969) Kidney disease Kidney failure (2011) Measles Mumps 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 Osteoarthritis (~1989) Osteoarthritis of left knee (08/27/14) 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) Plantar fasciitis Sinus drainage Systemic fungal infection Systemic fungal infection affecting skin (1978) Tinnitus (~1993) Toe fracture (2007) Upper arm fracture (1950) UTI (urinary tract infection) Surgical History (Updated 10/11/21 @ 12:11 by Mireya Sutton RN) Anesthesia History of elective (1969) History of gynecologic surgery (2013) History of knee replacement (12/2014) History of surgery on arm (1951) History of toe surgery (2007) History of tonsillectomy (1995) Hx laparoscopic cholecystectomy (05/18/21) Status post arthroscopy (1995) Status post biopsy (2011) Status post breast biopsy (2006) Status post laparoscopy (2011) Status post vaginal hysterectomy (1979) Family History Grandmother Hyperlipidemia Hypertension Mother Stroke Rheumatoid arthritis Personal history of twin in prior Grandfather Prostate cancer Grandmother Hyperlipidemia Hypertension Brother Crohn's disease Father Brain cancer Social History household members: spouse Smoking Status: Former smoker alcohol intake: current Assessment & Plan Assessment and plan (1) Postoperative examination: Status: Acute Plan Doing well postop day 1 Continue full liquid diet for now but we can advance to regular later if she feels up to it Mobilize and hopefully we can remove the Reyes catheter today. Will start Lovenox tonight because she had plenty of inflammation and lots of raw surface area from the resection Time Spent With Patient Critical Care time: I spent a total of [] minutes of critical care time on this patient's care today; this time is exclusive of procedural time.
[2021-10-23 11:20] VITALS: BP 137/81; PULSE 75; RESP 16; TEMP 36.4; O2SAT 96
--- NOTE | 2021-10-23 12:32 | CM.DANOTE ---
DCP Assessment: Patient is a 76 yr old female who was admitted for Acute appendicitis underwent do to large abecess underwent a hemicolectomy preformed by Dr. Klein. CM met with patient at the bedside and explained roll. Patient was A&O x3 during CM meeting. patient stated she is Independent with all ADLs and drives at her baseline. patient lives in a two story home with her Aditya who is there to help at DC. I: Medicare and Plan: Dc home with when medically stable. no Identified DC planning needs. CM department will follow to assist with any new DC planning needs that may arise. Carole Keene RNwelder production line arc Discharge Planning/Care Management CM Discharge Assessment Start: 10/23/21 12:21 Freq: Status: Active Protocol: Document 10/23/21 12:21 HS (Rec: 10/23/21 12:32 [id number]) Discharge Planning Assessment Assigned Bus And Trolley Inspecting Dispatcher Carole Keene RNwelder production line arc DPOA/Assigned Designee Name Aditya Malave- Contact Information [phone] Advance Directives? Yes Advance Directives on File No History Provided By Patient,Significant Other, Medical Record Has Patient been admitted in last 30 No days? Household Members spouse Type of transporation used prior to Drives own vehicle admit Independent with ADL's Yes Is patient alert and oriented? Yes Caregiver for Another No DME Already Rented / Owned FWW / Walker Barriers to Discharge No Discharge Plan Home Transportation Arrangement Spouse Referrals Initiated None needed Whiteboard Updated in Patient Room with Yes name and ext. # of Bus And Trolley Inspecting Dispatcher Review Status In Process Next Review Type Continued Stay Review Pre-Anesthesia Assessment Start: 10/11/21 12:05 Freq: Status: Active Protocol: Document 10/21/21 08:31 CAB (Rec: 10/11/21 12:15 CAB [id number]) Pre-Anesthesia Assessment Patient Information Reviewed Via Chart Review Comment COVID screen @ [facility] 10/20/21 Negative Primary Care Provider Sallie Burton Seen Specialist in Last 12 Months Yes Specialist Seen Emergency,General surgeon Primary Language Panamanian Preferred Language Panamanian Height 170.18 cm Weight 73.936 kg Body Mass Index (BMI) 25.5 Hearing Ability Normal Visual Assist Glasses Dentition Type Teeth, Natural Present Barriers to Learning None Hx Anesthesia Reactions No: I am a lightweight with anesthesia, doesn't take much: Hx Family Anesthesia Reaction No Hx Malignant Hyperthermia No Hx Blood Transfusions No Anesthesia Review Requested No Clinical Education Consultant No alcohol intake current alcohol intake frequency 3 or more drinks per day Smoking Status Former smoker how long ago did patient quit smoking Quit 1966 Substance Use Type does not use Patient is completely paralyzed or No completely immobile Mental Status Oriented to own ability Is patient on oxygen? No Does patient have HASSAN/SOB No Hx Sleep Apnea No CPAP/BIPAP use not prescribed Currently Taking a Beta Beranbe No Hx Chest Pain No Hx SOB No Hx Syncope or Dizziness No Anti-Coagulant Therapy No Has a Radiologic Therapist No Cardiac Testing No Hx Pacemaker/ICD No Pacemaker Rep Required? No dysphagia No Urinary Catheter Present No Hx Urinary Self Catheterization No Diabetes No Patient No Lactating No Presence of External or Internal Medical Yes: Left knee, Drain r/t Devices recent appendectomy Received a COVID vaccine? Yes: 3/3 Marital Status Lives With spouse Patient Discharge Plan Description Return Home Do You Have Any Spiritual Beliefs That No May Affect Your HC Choices? Do You Have Any Cultural Practices That No May Affect Your HC Choices? Emergency Contact Name Francois Malave Emergency Contact Advance Directives? Yes Advance Directives on File No Power of Offset Press Operator No
[2021-10-23 15:30] VITALS: BP 133/80; PULSE 80; RESP 16; TEMP 36.3; O2SAT 98
[2021-10-23] MEDS: ENOXAPARIN 40 MG/0.4 ML SYRINGE SUBCUT (18:08)
[2021-10-23 20:10] VITALS: BP 146/87; PULSE 84; RESP 18; TEMP 36.7; O2SAT 96
[2021-10-24 02:00] VITALS: BP 141/89; PULSE 85; RESP 18; TEMP 36.3; O2SAT 94
[2021-10-24] MEDS: LACTATED RINGERS 1,000 ML 100 ML IV ×2 (02:00→21:59)
[2021-10-24] MEDS: HYDROCODONE/ACET 5/325 TABLET 1 TAB PO ×2 (02:05→08:10)
[2021-10-24 04:15] VITALS: BP 150/94; PULSE 85; RESP 18; TEMP 36.3; O2SAT 96
[2021-10-24 07:35] VITALS: BP 153/106; PULSE 84; RESP 16; TEMP 36.4; O2SAT 96
[2021-10-24 07:40] VITALS: BP 146/93
--- NOTE | 2021-10-24 10:48 | PM.PN.1 ---
Subjective Subjective Date Patient Seen: 10/24/21 Time Patient Seen: 10:48 Interval history: Pain well controlled except for some discomfort yesterday when the fitch was kinked. She has tolerated regular diet but appetite is minimal. Exam Vital Signs (past 8 hours): - 10/24/21 04:15 10/24/21 07:35 10/24/21 07:40 Temperature 97.3 F L 97.6 F Pulse Rate 85 84 Respiratory Rate 18 16 Blood Pressure 150/94 H 153/106 H 146/93 H Pulse Oximetry 96 96 Oxygen Delivery Method Room Air Oxygen Flow Rate 0 Narrative Exam Narrative: Drain output serous RLQ packing removed dressings CDI Objective Labs Result Diagrams: 10/23/21 05:32 10/23/21 05:32 [facility] Medical History (Updated 10/23/21 @ 11:09 by Srini Klein MD) Chicken pox Cholelithiasis Hayfever HTN (hypertension) Hypothyroidism (~1969) Kidney disease Kidney failure (2011) Measles Mumps 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 Osteoarthritis (~1989) Osteoarthritis of left knee (08/27/14) 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) Plantar fasciitis Sinus drainage Systemic fungal infection Systemic fungal infection affecting skin (1978) Tinnitus (~1993) Toe fracture (2007) Upper arm fracture (1950) UTI (urinary tract infection) Surgical History (Updated 10/11/21 @ 12:11 by Mireya Sutton RN) Anesthesia History of elective (1969) History of gynecologic surgery (2013) History of knee replacement (12/2014) History of surgery on arm (1950) History of toe surgery (2007) History of tonsillectomy (1995) Hx laparoscopic cholecystectomy (05/18/21) Status post arthroscopy (1995) Status post biopsy (2011) Status post breast biopsy (2006) Status post laparoscopy (2011) Status post vaginal hysterectomy (1979) Family History Grandmother Hyperlipidemia Hypertension Mother Stroke Rheumatoid arthritis Personal history of twin in prior Grandfather Prostate cancer Grandmother Hyperlipidemia Hypertension Brother Crohn's disease Father Brain cancer Social History household members: spouse Smoking Status: Former smoker alcohol intake: current Assessment & Plan Assessment and plan (1) Postoperative examination: Status: Acute Plan POD 2 following right hemicolectomy dc fitch mobilize Time Spent With Patient Critical Care time: I spent a total of [] minutes of critical care time on this patient's care today; this time is exclusive of procedural time.
[2021-10-24 12:10] VITALS: BP 147/92; PULSE 81; RESP 17; TEMP 36.1; O2SAT 99
--- NOTE | 2021-10-24 14:49 | PC.NURSE ---
Pt has been assisted to stand and the bedside and transfer to bedside chair. She has had an episode of small amount of emesis approx. 20mls. Appetite has been less today. Reyes catheter has been removed at 1430. Pt tollerated well.
[2021-10-24] MEDS: ONDANSETRON 4 MG/2 ML INJ IV (16:29)
[2021-10-24] MEDS: ENOXAPARIN 40 MG/0.4 ML SYRINGE SUBCUT (17:31)
[2021-10-24 20:00] VITALS: BP 150/94; PULSE 84; RESP 14; TEMP 37.1; O2SAT 95
[2021-10-25] VITALS (8 sets, daily range): BP systolic 142–169; BP diastolic 73–104; PULSE 80–91; RESP 14–18; TEMP 36.2–37.2; O2SAT 90–97
--- NOTE | 2021-10-25 02:44 | PC.NURSE ---
While patient was up to use the bedside commode, pt agreed to ambulate the halls to help stimulate bowel function. When returning from a short walk, pt had 200 mL of emesis and 40 was emptied from the TODD drain. This RN assessed BS again which remain hypoactive to absent in all quadrants. Pt denied pain but did state she feels nausea but declined any medication for nausea. Pt stated she wanted to get everything out that was in there. Pt was educated on possible effects on incision area d/t vomiting and increased pressure on abdomen but pt still declined medication. Pt BP was also elevated with a BP of 142/104. Pt has had multiple prior readings with elevated BP. Will continue to monitor VS and nausea and contact provider as needed.
[2021-10-25] MEDS: LACTATED RINGERS 1,000 ML 100 ML IV ×2 (07:48→17:37)
[2021-10-25] MEDS: SODIUM CHLORIDE 0.9% FLUSH 10 ML IV ×2 (08:27→20:34)
[2021-10-25] MEDS: ONDANSETRON 4 MG/2 ML INJ IV ×2 (08:27→22:25)
[2021-10-25] MEDS: ACETAMINOPHEN 325 MG TABLET 650 MG PO (11:20)
--- NOTE | 2021-10-25 11:58 | PM.PN.1 ---
Subjective Subjective Date Patient Seen: 10/25/21 Time Patient Seen: 11:58 Interval history: Nausea and vomiting yesterday and some this morning. No flatus recently.. Exam Vital Signs (past 8 hours): - 10/25/21 05:51 10/25/21 09:14 Temperature 97.8 F 98.4 F Pulse Rate 91 H 82 Respiratory Rate 14 16 Blood Pressure 149/95 H 151/92 H Pulse Oximetry 96 90 L Oxygen Delivery Method Room Air Oxygen Flow Rate 0 Narrative Exam Narrative: Soft, nontender Moderately distended Drain output is serosanguineous Objective Labs Result Diagrams: 10/23/21 05:32 10/23/21 05:32 [facility] Medical History (Updated 10/23/21 @ 11:09 by Srini Klein MD) Chicken pox Cholelithiasis Hayfever HTN (hypertension) Hypothyroidism (~1969) Kidney disease Kidney failure (2011) Measles Mumps 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 Osteoarthritis (~1989) Osteoarthritis of left knee (08/27/14) 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) Plantar fasciitis Sinus drainage Systemic fungal infection Systemic fungal infection affecting skin (1978) Tinnitus (~1993) Toe fracture (2007) Upper arm fracture (1950) UTI (urinary tract infection) Surgical History (Updated 10/11/21 @ 12:11 by Mireya Sutton RN) Anesthesia History of elective (1969) History of gynecologic surgery (2013) History of knee replacement (12/2014) History of surgery on arm (1950) History of toe surgery (2007) History of tonsillectomy (1995) Hx laparoscopic cholecystectomy (05/18/21) Status post arthroscopy (1995) Status post biopsy (2011) Status post breast biopsy (2006) Status post laparoscopy (2011) Status post vaginal hysterectomy (1979) Family History Grandmother Hyperlipidemia Hypertension Mother Stroke Rheumatoid arthritis Personal history of twin in prior Grandfather Prostate cancer Grandmother Hyperlipidemia Hypertension Brother Crohn's disease Father Brain cancer Social History household members: spouse Smoking Status: Former smoker alcohol intake: current Assessment & Plan Assessment and plan (1) Postoperative examination: Status: Acute Plan Suspect ileus NPO for now Time Spent With Patient Critical Care time: I spent a total of [] minutes of critical care time on this patient's care today; this time is exclusive of procedural time.
[2021-10-25 14:40] LABS: Add Manual Diff / Slide Review NO; Basophils Absolute Auto 0 /uL (0-100); Basophils Percent Auto 0.3 % (0-2); Eosinophils Absolute Auto 200 /uL (0-450); Eosinophils Percent Auto 2.2 % (2-4); Hematocrit 37.5 % (36-46); Hemoglobin 12.5 g/dL (12.0-16.0); Lymphocytes Absolute Auto 1700 /uL (1100-4500); Lymphocytes Percent Auto 16.7 % (25-40); Mean Corpuscular HGB Conc 33.4 % (30-36); Mean Corpuscular Hemoglobin 29.6 PG (26-34); Mean Corpuscular Volume 88.8 fL (80-100); Monocytes Absolute Auto 700 /uL (0-900); Monocytes Percent Auto 6.6 % (3-14); Neutrophils Absolute Auto 7400 /uL (1500-7000); Neutrophils Percent Auto 74.2 % (50-75); Platelet Count 442 X10^3/uL (150-400); Red Blood Cell Count 4.23 X10^6/uL (4.0-5.2); Red Cell Distribution Width 13.3 % (11.6-14.8)
[2021-10-25] MEDS: ENOXAPARIN 40 MG/0.4 ML SYRINGE SUBCUT (17:38)
[2021-10-25] MEDS: HYDROCODONE/ACET 5/325 TABLET 1 TAB PO (22:25)
[2021-10-26] MEDS: LACTATED RINGERS 1,000 ML 100 ML IV ×2 (03:21→13:07)
[2021-10-26 05:46] VITALS: BP 156/98; PULSE 80; RESP 18; TEMP 36.4; O2SAT 95
--- NOTE | 2021-10-26 09:55 | P.PN_ITS ---
Exam Vital Signs (past 8 hours): - 10/26/21 05:46 Temperature 97.6 F Pulse Rate 80 Respiratory Rate 18 Blood Pressure 156/98 H Pulse Oximetry 95 Oxygen Delivery Method Room Air Oxygen Flow Rate 0 Objective Labs Result Diagrams: 10/25/21 14:30 10/23/21 05:32 Labs: Laboratory Results - last 24 hr 10/25/21 14:30 WBC 10.0 RBC 4.23 Hgb 12.5 Hct 37.5 MCV 88.8 MCH 29.6 MCHC 33.4 RDW 13.3 Plt Count 442 H Neut % (Auto) 74.2 Lymph % (Auto) 16.7 L [place] % (Auto) 6.6 Eos % (Auto) 2.2 Baso % (Auto) 0.3 Neut # (Auto) 7400 H Lymph # (Auto) 1700 [place] # (Auto) 700 Eos # (Auto) 200 Baso # (Auto) 0 PFSH Medical History (Updated 10/23/21 @ 11:09 by Srini Klein MD) Chicken pox Cholelithiasis Hayfever HTN (hypertension) Hypothyroidism (~1969) Kidney disease Kidney failure (2011) Measles Mumps 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 Osteoarthritis (~1989) Osteoarthritis of left knee (08/27/14) 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) Plantar fasciitis Sinus drainage Systemic fungal infection Systemic fungal infection affecting skin (1978) Tinnitus (~1993) Toe fracture (2007) Upper arm fracture (1950) UTI (urinary tract infection) Surgical History (Updated 10/11/21 @ 12:11 by Mireya Sutton RN) Anesthesia History of elective (1969) History of gynecologic surgery (2013) History of knee replacement (12/2014) History of surgery on arm (1950) History of toe surgery (2007) History of tonsillectomy (1995) Hx laparoscopic cholecystectomy (05/18/21) Status post arthroscopy (1995) Status post biopsy (2011) Status post breast biopsy (2006) Status post laparoscopy (2011) Status post vaginal hysterectomy (1979) Family History Grandmother Hyperlipidemia Hypertension Mother Stroke Rheumatoid arthritis Personal history of twin in prior Grandfather Prostate cancer Grandmother Hyperlipidemia Hypertension Brother Crohn's disease Father Brain cancer Social History household members: spouse Smoking Status: Former smoker alcohol intake: current Assessment & Plan Post-op Postoperative Procedures: Procedures Operation Date: 10/22/21 11:15 Actual Procedure Side Surgeon p Laparoscopic Appendectomy, convert to open Right hemicolectomy Not Applicable Srini Klein MD Postoperative status narrative: 76 y.o woman POD 4 sp right hemicolectomy for intra abdominal abscess. #Post operative ileus-NPO ok for sips/chips. Await return of bowel function -IVF -Out of bed ambulate and to chair SCDs and plovenox
[2021-10-26 11:46] VITALS: BP 151/99; PULSE 87; RESP 16; TEMP 36.5; O2SAT 95
[2021-10-26 16:33] VITALS: BP 156/99; PULSE 85; RESP 14; TEMP 36.6; O2SAT 97
[2021-10-26] MEDS: HYDROMORPHONE 1 MG INJ 0.5 MG IV (17:20)
[2021-10-26] MEDS: ONDANSETRON 4 MG/2 ML INJ IV (17:20)
[2021-10-26] MEDS: ENOXAPARIN 40 MG/0.4 ML SYRINGE SUBCUT (17:20)
[2021-10-26 20:05] VITALS: BP 148/83; PULSE 89; RESP 18; TEMP 36.8; O2SAT 95
[2021-10-27 01:10] VITALS: BP 147/97; PULSE 88; RESP 18; TEMP 36.4; O2SAT 97
[2021-10-27] MEDS: ONDANSETRON 4 MG/2 ML INJ IV ×2 (03:47→17:33)
[2021-10-27] MEDS: HYDROMORPHONE 1 MG INJ 0.5 MG IV ×2 (03:48→17:33)
[2021-10-27 04:20] VITALS: BP 138/89; PULSE 89; RESP 18; TEMP 36.6; O2SAT 96
[2021-10-27] MEDS: LACTATED RINGERS 1,000 ML 100 ML IV ×2 (10:17→18:45)
[2021-10-27 13:36] VITALS: BP 142/86; PULSE 90; RESP 19; TEMP 36.6; O2SAT 96
[2021-10-27 15:45] VITALS: BP 117/77; PULSE 89; RESP 16; TEMP 35.9; O2SAT 94
[2021-10-27 16:22] LABS: Add Manual Diff / Slide Review NO; Basophils Absolute Auto 0 /uL (0-100); Basophils Percent Auto 0.3 % (0-2); Eosinophils Absolute Auto 100 /uL (0-450); Hematocrit 33.5 % (36-46); Hemoglobin 11.1 g/dL (12.0-16.0); Lymphocytes Absolute Auto 1900 /uL (1100-4500); Mean Corpuscular HGB Conc 33.2 % (30-36); Mean Corpuscular Hemoglobin 29.5 PG (26-34); Mean Corpuscular Volume 88.9 fL (80-100); Monocytes Absolute Auto 900 /uL (0-900); Monocytes Percent Auto 7.8 % (3-14); Neutrophils Absolute Auto 8900 /uL (1500-7000); Neutrophils Percent Auto 74.9 % (50-75); Platelet Count 436 X10^3/uL (150-400); Red Blood Cell Count 3.77 X10^6/uL (4.0-5.2); Red Cell Distribution Width 13.2 % (11.6-14.8); White Blood Cell Count 11.9 X10^3/uL (4.5-11.0)
--- NOTE | 2021-10-27 16:59 | P.PN_ITS ---
Subjective Subjective Date Patient Seen: 10/27/21 Interval history: Elsy had a few small bowel movements but no flatus. She did vomit this morning. She has no appetite. Exam Vital Signs (past 8 hours): - 10/27/21 13:36 10/27/21 15:45 Temperature 97.9 F 96.6 F L Pulse Rate 90 89 Respiratory Rate 19 16 Blood Pressure 142/86 H 117/77 Pulse Oximetry 96 94 Oxygen Delivery Method Room Air Oxygen Flow Rate 0 Narrative Exam Narrative: Abdomen soft Drain output is serous Objective Labs Result Diagrams: 10/27/21 15:58 10/23/21 05:32 Labs: Laboratory Results - last 24 hr 10/27/21 15:58 WBC 11.9 H RBC 3.77 L Hgb 11.1 L Hct 33.5 L MCV 88.9 MCH 29.5 MCHC 33.2 RDW 13.2 Plt Count 436 H Neut % (Auto) 74.9 Lymph % (Auto) 16.0 L [place] % (Auto) 7.8 Eos % (Auto) 1.0 L Baso % (Auto) 0.3 Neut # (Auto) 8900 H Lymph # (Auto) 1900 [place] # (Auto) 900 Eos # (Auto) 100 Baso # (Auto) 0 PFSH Medical History (Updated 10/23/21 @ 11:09 by Srini Klein MD) Chicken pox Cholelithiasis Hayfever HTN (hypertension) Hypothyroidism (~1969) Kidney disease Kidney failure (2011) Measles Mumps 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 Osteoarthritis (~1989) Osteoarthritis of left knee (08/27/14) 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) Plantar fasciitis Sinus drainage Systemic fungal infection Systemic fungal infection affecting skin (1978) Tinnitus (~1993) Toe fracture (2007) Upper arm fracture (1950) UTI (urinary tract infection) Surgical History (Updated 10/11/21 @ 12:11 by Mireya Sutton RN) Anesthesia History of elective (1969) History of gynecologic surgery (2013) History of knee replacement (12/2014) History of surgery on arm (1950) History of toe surgery (2007) History of tonsillectomy (1995) Hx laparoscopic cholecystectomy (05/18/21) Status post arthroscopy (1995) Status post biopsy (2011) Status post breast biopsy (2006) Status post laparoscopy (2011) Status post vaginal hysterectomy (1979) Family History Grandmother Hyperlipidemia Hypertension Mother Stroke Rheumatoid arthritis Personal history of twin in prior Grandfather Prostate cancer Grandmother Hyperlipidemia Hypertension Brother Crohn's disease Father Brain cancer Social History household members: spouse Smoking Status: Former smoker alcohol intake: current Assessment & Plan Assessment and plan (1) Postoperative examination: Status: Acute Plan Awaiting flatus and no vomiting before we advance diet. Remove drain tomorrow Time Spent With Patient Critical Care time: I spent a total of [] minutes of critical care time on this patient's care today; this time is exclusive of procedural time.
[2021-10-27] MEDS: ENOXAPARIN 40 MG/0.4 ML SYRINGE SUBCUT (18:45)
[2021-10-27 19:43] VITALS: BP 140/68; PULSE 84; RESP 16; TEMP 37.1; O2SAT 95
[2021-10-28] MEDS: LACTATED RINGERS 1,000 ML 100 ML IV ×2 (04:56→14:50)
[2021-10-28 06:08] VITALS: BP 120/79; PULSE 79; RESP 16; TEMP 36.6; O2SAT 97
[2021-10-28 08:41] VITALS: BP 134/76; PULSE 88; RESP 16; TEMP 35.8; O2SAT 96
[2021-10-28 13:39] VITALS: BP 150/79; PULSE 90; RESP 16; TEMP 36.7; O2SAT 96
--- NOTE | 2021-10-28 14:45 | DIET.CONS ---
Dietary Consultation Note Admission Date: 10/23/2021 23:41 RD Note: RD screening patient for LOS d5. Pt underwent hemicolectomy 5d ago, had post-op ileus, some nausea, passing some old clot material as BM. Pt now on clear liquid diet, slowly advancing diet as tolerated. RD to add on Ensure Clear with meals to support protein and micronutrient needs for healing. Ht: 170.18 cm Wt: 73.936 kg BMI: 25.5 Last BM: 10/28/21 (10/28/21 13:39) MNA: 10 Rafael Score: 20 Diet: 10/28/21 Lunch Clear Liquid Diet Diet Modifications: ensure clear tid Nutrition Percent Meal Consumed 75% 10/28/21 13:39 Labs: RBC 3.77 X10^6/uL (4.0-5.2) L 10/27/21 15:58 Hgb 11.1 g/dL (12.0-16.0) L 10/27/21 15:58 Hct 33.5 % (36-46) L 10/27/21 15:58 Creatinine 0.71 mg/dL (0.52-1.04) 10/23/21 05:32 Electronically Signed by: Sherie Perales 10/28/21 14:45 Clinical Dietitian [address] [address]
[2021-10-28 15:32] LABS: Add Manual Diff / Slide Review NO; Basophils Absolute Auto 0 /uL (0-100); Basophils Percent Auto 0.3 % (0-2); Eosinophils Absolute Auto 200 /uL (0-450); Eosinophils Percent Auto 1.9 % (2-4); Hematocrit 33.3 % (36-46); Hemoglobin 11.1 g/dL (12.0-16.0); Lymphocytes Absolute Auto 1500 /uL (1100-4500); Lymphocytes Percent Auto 13.5 % (25-40); Mean Corpuscular HGB Conc 33.2 % (30-36); Mean Corpuscular Hemoglobin 29.8 PG (26-34); Mean Corpuscular Volume 89.6 fL (80-100); Monocytes Absolute Auto 700 /uL (0-900); Neutrophils Absolute Auto 8600 /uL (1500-7000); Neutrophils Percent Auto 78.3 % (50-75); Platelet Count 444 X10^3/uL (150-400); Red Blood Cell Count 3.72 X10^6/uL (4.0-5.2); Red Cell Distribution Width 13.4 % (11.6-14.8)
--- NOTE | 2021-10-28 15:42 | PM.PN.1 ---
Subjective Subjective Date Patient Seen: 10/28/21 Time Patient Seen: 15:43 Interval history: Having bowel function. Tolerating a diet. No complaints other than tired. Drain output is minimal. Hemoglobin is stable. Exam Vital Signs (past 8 hours): - 10/28/21 08:41 10/28/21 13:39 Temperature 96.5 F L 98.0 F Pulse Rate 88 90 Respiratory Rate 16 16 Blood Pressure 134/76 150/79 H Pulse Oximetry 96 96 Oxygen Delivery Method Room Air Oxygen Flow Rate 0 Narrative Exam Narrative: Incisions are healing well Drain is serous Objective Labs Result Diagrams: 10/28/21 11:45 10/23/21 05:32 Labs: Laboratory Results - last 24 hr 10/27/21 10/28/21 15:58 11:45 WBC 11.9 H 11.0 RBC 3.77 L 3.72 L Hgb 11.1 L 11.1 L Hct 33.5 L 33.3 L MCV 88.9 89.6 MCH 29.5 29.8 MCHC 33.2 33.2 RDW 13.2 13.4 Plt Count 436 H 444 H Neut % (Auto) 74.9 78.3 H Lymph % (Auto) 16.0 L 13.5 L [place] % (Auto) 7.8 6.0 Eos % (Auto) 1.0 L 1.9 L Baso % (Auto) 0.3 0.3 Neut # (Auto) 8900 H 8600 H Lymph # (Auto) 1900 1500 [place] # (Auto) 900 700 Eos # (Auto) 100 200 Baso # (Auto) 0 0 PFSH Medical History (Updated 10/23/21 @ 11:09 by Srini Klein MD) Chicken pox Cholelithiasis Hayfever HTN (hypertension) Hypothyroidism (~1969) Kidney disease Kidney failure (2011) Measles Mumps 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 Osteoarthritis (~1989) Osteoarthritis of left knee (08/27/14) 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) Plantar fasciitis Sinus drainage Systemic fungal infection Systemic fungal infection affecting skin (1978) Tinnitus (~1993) Toe fracture (2007) Upper arm fracture (1950) UTI (urinary tract infection) Surgical History (Updated 10/11/21 @ 12:11 by Mireya Sutton RN) Anesthesia History of elective (1969) History of gynecologic surgery (2013) History of knee replacement (12/2014) History of surgery on arm (1950) History of toe surgery (2007) History of tonsillectomy (1995) Hx laparoscopic cholecystectomy (05/18/21) Status post arthroscopy (1995) Status post biopsy (2011) Status post breast biopsy (2006) Status post laparoscopy (2011) Status post vaginal hysterectomy (1979) Family History Grandmother Hyperlipidemia Hypertension Mother Stroke Rheumatoid arthritis Personal history of twin in prior Grandfather Prostate cancer Grandmother Hyperlipidemia Hypertension Brother Crohn's disease Father Brain cancer Social History household members: spouse Smoking Status: Former smoker alcohol intake: current Assessment & Plan Assessment and plan (1) Postoperative examination: Status: Acute Plan Regular diet Drain removed Plan for discharge home tomorrow. She is not requiring any pain medications. Time Spent With Patient Critical Care time: I spent a total of [] minutes of critical care time on this patient's care today; this time is exclusive of procedural time.
[2021-10-28] MEDS: HYDROCODONE/ACET 5/325 TABLET 1 TAB PO (18:40)
[2021-10-28 19:56] VITALS: BP 136/82; PULSE 84; RESP 17; TEMP 36.6; O2SAT 96
[2021-10-29] MEDS: LACTATED RINGERS 1,000 ML 100 ML IV ×2 (00:20→11:17)
[2021-10-29] MEDS: ONDANSETRON 4 MG/2 ML INJ IV ×3 (00:24→20:53)
[2021-10-29] MEDS: SODIUM CHLORIDE 0.9% FLUSH 10 ML IV (00:25)
[2021-10-29 02:17] VITALS: BP 142/83; PULSE 85; RESP 17; TEMP 36.6; O2SAT 96
--- NOTE | 2021-10-29 03:43 | PC.NURSE ---
Pt was feeling nauseous at 0000, 4mg IV Zofran was given but only seemed to help a little. Pt began to vomit at 0330 and had [address] Klein was called and telephone orders were given to make the patient NPO. No new medication orders were given.
[2021-10-29 05:15] VITALS: BP 139/81; PULSE 80; RESP 17; TEMP 36.3; O2SAT 97
[2021-10-29 09:33] VITALS: BP 137/74; PULSE 82; RESP 18; TEMP 37.1; O2SAT 97
--- NOTE | 2021-10-29 10:08 | DI.RAD.S_ITS ---
PROCEDURE: XR ABDOMEN 1V INDICATIONS: Ileus TECHNIQUE: One view of the abdomen acquired. COMPARISON: None. FINDINGS: Surgical changes and devices: None. Bowel: Multiple dilated loops of small bowel noted. Loops of small bowel are dilated up to 6.4 centimeters. Soft tissues: No suspicious abdominal calcifications. Visualized solid organ contours appear normal in size. Surgical clips project over the midline of the lower abdomen and the pelvis. Bones: No suspicious bony lesions. IMPRESSION: Dilated loops of small bowel which could represent postsurgical ileus or small-bowel obstruction. Dictated by: Sarah Klein MD, PhD on 10/29/2021 at 12:29 Approved by: Sarah Klein MD, PhD on 10/29/2021 at 12:30
--- NOTE | 2021-10-29 10:41 | CM.DPC ---
DCP Cont: Per Surgeon, had been hopeful that pt would be more stable for d/c home today but has continued to struggle with tolerating advancing diet and ongoing nausea and may have an ileus and Surgeon met bedside and with pt and spouse and discussed recommendations and pt not stable for d/c yet today and discharge cancelled. Plan: SW to follow closely for pt to be more medically stable with diet towards plan of d/c to home with supportive spouse bedside. No further identified barriers to discharge. SIGIFREDO Garcia
[2021-10-29] MEDS: METOCLOPRAMIDE 10 MG/2 ML INJ IV ×2 (11:13→17:26)
--- NOTE | 2021-10-29 11:34 | DIET.PN1 ---
Dietary Progress Note Assessment: 76 y/o F s/p hemicolectomy. Was tolerating advancing of diet, but now NPO d/t n/v. Visited pt to provide discharge nutrition recs. Pt still feeling unwell and not appropriate for education. Provided pt with handouts for low fiber and advancing fiber over weeks after discharge, since there will not be an RD here until Monday. She asked that I check back later today. Ht: 170.18 cm Wt: 73.936 kg BMI: 25.5 Last BM: 10/29/21 (10/29/21 02:16) MNA: 10 Rafael Score: 20 Diet: 10/29/21 03:40 NPO Diet Diet Modifications: Safety Tray needed?: No NPO Type: Strict Nutrition Percent Meal Consumed 75% 10/28/21 13:39 Labs: RBC 3.72 X10^6/uL (4.0-5.2) L 10/28/21 11:45 Hgb 11.1 g/dL (12.0-16.0) L 10/28/21 11:45 Hct 33.3 % (36-46) L 10/28/21 11:45 Creatinine 0.71 mg/dL (0.52-1.04) 10/23/21 05:32 Electronically Signed by: Kimber Jorge 10/29/21 11:34 Clinical Dietitian [address] [address]
--- NOTE | 2021-10-29 13:09 | PC.NURSE ---
Day shift: Pt medicated per NOV for nausea. Nausea remains present at this time. Pt states I've been feeling burpy all day. Also stated I wish I could just throw up. Then I would feel better.
[2021-10-29] MEDS: LORazepam 2 MG/ML INJ 0.5 MG IV (13:55)
--- NOTE | 2021-10-29 14:15 | PM.PNPO.1 ---
Subjective Subjective Date Patient Seen: 10/29/21 Time Patient Seen: 14:19 Interval history: Two small volume bloody bowel movements overnight. No Flatus. Few episodes of emesis overnight. Exam Vital Signs (past 8 hours): - 10/29/21 09:33 Temperature 98.8 F Pulse Rate 82 Respiratory Rate 18 Blood Pressure 137/74 Pulse Oximetry 97 Oxygen Delivery Method Room Air Oxygen Flow Rate 0 Narrative Exam Narrative: General adult woman alert oriented no acute distress Abdomen soft moderately distended. Incision clean dry intact. Drain site drains been removed site is clean Objective Labs Result Diagrams: 10/28/21 11:45 10/23/21 05:32 Labs: Laboratory Results - last 24 hr 10/28/21 11:45 WBC 11.0 RBC 3.72 L Hgb 11.1 L Hct 33.3 L MCV 89.6 MCH 29.8 MCHC 33.2 RDW 13.4 Plt Count 444 H Neut % (Auto) 78.3 H Lymph % (Auto) 13.5 L [place] % (Auto) 6.0 Eos % (Auto) 1.9 L Baso % (Auto) 0.3 Neut # (Auto) 8600 H Lymph # (Auto) 1500 [place] # (Auto) 700 Eos # (Auto) 200 Baso # (Auto) 0 PFSH Medical History (Updated 10/23/21 @ 11:09 by Srini Klein MD) Chicken pox Cholelithiasis Hayfever HTN (hypertension) Hypothyroidism (~1969) Kidney disease Kidney failure (2011) Measles Mumps 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 Osteoarthritis (~1989) Osteoarthritis of left knee (08/27/14) 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) Plantar fasciitis Sinus drainage Systemic fungal infection Systemic fungal infection affecting skin (1978) Tinnitus (~1993) Toe fracture (2007) Upper arm fracture (1950) UTI (urinary tract infection) Surgical History (Updated 10/11/21 @ 12:11 by Mireya Sutton RN) Anesthesia History of elective (1969) History of gynecologic surgery (2013) History of knee replacement (12/2014) History of surgery on arm (1950) History of toe surgery (2007) History of tonsillectomy (1995) Hx laparoscopic cholecystectomy (05/18/21) Status post arthroscopy (1995) Status post biopsy (2011) Status post breast biopsy (2006) Status post laparoscopy (2011) Status post vaginal hysterectomy (1979) Family History Grandmother Hyperlipidemia Hypertension Mother Stroke Rheumatoid arthritis Personal history of twin in prior Grandfather Prostate cancer Grandmother Hyperlipidemia Hypertension Brother Crohn's disease Father Brain cancer Social History household members: spouse Smoking Status: Former smoker alcohol intake: current Assessment & Plan Post-op Postoperative Procedures: Procedures Operation Date: 10/22/21 11:15 Actual Procedure Side Surgeon p Laparoscopic Appendectomy, convert to open Right hemicolectomy Not Applicable Srini Klein MD Postoperative status narrative: 76-year-old woman postoperative day 7 status post right hemicolectomy for intra-abdominal abscess. She continues to have a postoperative ileus. Abdominal x-ray from this morning reviewed demonstrates dilated loops of small bowel consistent with ileus. Continue NPO okay for meds and ice chips. Await full return of bowel function. If continued emesis will place NG tube
--- NOTE | 2021-10-29 16:12 | PC.NURSE ---
Day shift: Pt asleep at this time. Call light in reach. Report given to ЕЛЕНА Barboza and she is taking over care of this Pt at this time.
[2021-10-29 16:51] VITALS: BP 153/95; PULSE 84; RESP 16; TEMP 36.9; O2SAT 97
[2021-10-29] MEDS: ENOXAPARIN 40 MG/0.4 ML SYRINGE SUBCUT (17:35)
--- NOTE | 2021-10-29 17:59 | PC.NURSE ---
Pt resting at intervals. Assisted to BSC, had 350cc yellow emesis Med w/reglan as per keila. Call light w/in reach, bed alaem on for pt safety. Continue w/plan of care.
[2021-10-29 19:00] VITALS: BP 147/83; PULSE 72; RESP 16; TEMP 37.2; O2SAT 97
[2021-10-29] MEDS: HYDROMORPHONE 1 MG INJ 0.5 MG IV (20:53)
--- NOTE | 2021-10-29 21:58 | DI.RAD.S_ITS ---
PROCEDURE: XR CHEST 1V INDICATIONS: NG tube placement TECHNIQUE: One view of the chest was acquired. COMPARISON: None. FINDINGS: Surgical changes and devices: Nasogastric tube is seen with the tip and side port within the stomach. Lungs and pleura: Lungs are clear. No pleural effusions or pneumothorax. Mediastinum: Mediastinal contours appear normal. Heart size is normal. Bones and chest wall: No suspicious bony lesions. Overlying soft tissues appear unremarkable. IMPRESSION: 1. No acute cardiopulmonary abnormality. 2. Nasogastric tube appears well positioned. Dictated by: Bishnu Jay M.D. on 10/29/2021 at 22:36 Approved by: Bishnu Jay M.D. on 10/29/2021 at 22:36
[2021-10-29] MEDS: PANTOPRAZOLE 40 MG VIAL IV (22:23)
[2021-10-30] VITALS (7 sets, daily range): BP systolic 148–175; BP diastolic 86–100; PULSE 53–94; RESP 16–20; TEMP 36.1–36.7; O2SAT 93–99
--- NOTE | 2021-10-30 | DI.CT.S_ITS ---
PROCEDURE: CT CHEST ABD PEL W CON INDICATIONS: Right lower quadrant abscess TECHNIQUE: Helical axial CT of the chest abdomen and pelvis was obtained after intravenous contrast injection and reformatted in multiple planes. Automated exposure control and/or adjustment of the dose parameters according to patient's size was utilized for radiation dose reduction. FINDINGS: Chest: Cardiovascular: Heart size is normal. No evidence of pulmonary embolism, aortic aneurysm or dissection. Lungs and pleural spaces: The lung kelsey are clear without nodule, infiltrate or interstitial prominence. Pleural spaces show no effusion or pneumothorax. Lymph nodes: No mediastinal, hilar or axillary adenopathy. Mediastinum: Unremarkable. No hiatal hernia. Thyroid within normal limits. Nasogastric tube noted in the esophagus. Chest Wall and Bones: Unremarkable. No acute fracture. Abdomen and Pelvis: Liver: Normal in size and attenuation. No contour deformity present. Biliary system: No calcified cholelithiasis or pericholecystic inflammation. No intra or extrahepatic bile duct dilatation. Pancreas: Unremarkable without mass or inflammation evident. Spleen: Normal in size and density. Adrenals: Normal morphology and density. Reproductive system: Unremarkable as visualized. Urinary system: Normal renal size and attenuation. No renal calculi, hydronephrosis, or solid mass present. Air in the urinary bladder probably reflects recent instrumentation. Gastrointestinal system: Right hemicolectomy with side to side ileocolic anastomosis noted. There is diffuse bowel wall dilation, small bowel measures up to 4.5 cm in diameter without transition, consistent with postop ileus. No evidence of residual abscess present, although soft tissue induration noted in the right lower quadrant sidewall, consistent with granulation tissue. Nasogastric tube in the stomach. Sigmoid diverticulosis noted without evidence of diverticulitis. Lymph nodes: No mesenteric or retroperitoneal adenopathy. Vasculature: Aortic atherosclerotic vascular calcification noted without evidence of aneurysm. Abdominal wall: Midline skin kati and recent of postprocedural air noted in the subcutaneous tissue within expected limits. Abdominal wall is intact. Musculoskeletal: Normal bone mineralization. No acute fractures. IMPRESSION: 1. Postop ileus status post right hemicolectomy and ileocolic anastomosis. Small bowel measures up to 4.5 cm in diameter. Consider short-term interval follow-up to exclude developing obstruction. 2. No evidence of residual abscess. There is soft tissue thickening and induration the right pelvic sidewall, probably reflecting granulation tissue is also could be further evaluated in interval follow-up. Approved by: Heath Mccoy M.D. on 10/30/2021 at 11:34
--- NOTE | 2021-10-30 | DI.RAD.S_ITS ---
PROCEDURE: XR CHEST FOR PICC 1V INDICATIONS: PICC PLACMENT COMPARISON: [facility], CR, XR CHEST 1V, 10/29/2021, 21:56. FINDINGS: PICC was placed by the intravenous therapy team from the right side. PICC line appears curled in the distal SVC. Nasogastric tube in the stomach. No pneumothorax. Heart size normal. IMPRESSION: Distal PICC line is curled in the distal SVC. No pneumothorax. Nasogastric tube side port at the GE junction. Consider 8-15 cm advancement Approved by: Heath Mccoy M.D. on 10/30/2021 at 13:27
--- NOTE | 2021-10-30 | DI.RAD.S_ITS ---
PROCEDURE: XR CHEST FOR PICC 1V INDICATIONS: PICC PLACEMENT COMPARISON: [facility], , XR CHEST FOR PICC 1V, 10/30/2021, 16:04. FINDINGS: PICC was placed by the intravenous therapy team from the left side. Fluoroscopic spot film demonstrates the tip of PICC projecting to the area of cavoatrial junction. Nasogastric tube is in place. Heart and lungs are normal. IMPRESSION: Tip of PICC projects to the area of cavoatrial junction.. Dictated by: Nanda Harper M.D. on 10/30/2021 at 18:34 Approved by: Nanda Harper M.D. on 10/30/2021 at 18:35
[2021-10-30] MEDS: METOCLOPRAMIDE 10 MG/2 ML INJ IV ×4 (00:32→17:42)
[2021-10-30 06:13] LABS: Hematocrit 32.3 % (36-46); Hemoglobin 10.9 g/dL (12.0-16.0); Mean Corpuscular HGB Conc 33.8 % (30-36); Mean Corpuscular Volume 88.8 fL (80-100); Platelet Count 460 X10^3/uL (150-400); Red Blood Cell Count 3.64 X10^6/uL (4.0-5.2); Red Cell Distribution Width 13.4 % (11.6-14.8); White Blood Cell Count 9.2 X10^3/uL (4.5-11.0)
[2021-10-30 06:17] LABS: Magnesium 1.6 mg/dL (1.6-2.3); Phosphorous 3.6 mg/dL (2.8-4.1)
[2021-10-30 06:18] LABS: BUN Creatinine Ratio 12.9 (6-22); Blood Urea Nitrogen 8 mg/dL (7-17); Calcium 8.1 mg/dL (8.4-10.2); Carbon Dioxide 24 mmol/L (22-32); Chloride 105 mmol/L (98-107); Estimated Glomerular Filt Rate > 60.0 mL/min (>60); Glucose 109 mg/dL (80-110); HEMOLYSIS < 15 (0-50); Potassium 3.3 mmol/L (3.4-5.1); Sodium 134 mmol/L (137-145)
[2021-10-30] MEDS: LACTATED RINGERS 1,000 ML 100 ML IV ×2 (06:49→17:40)
[2021-10-30] MEDS: LEVOTHYROXINE 88 MCG TABLET PO (07:45)
[2021-10-30] MEDS: SODIUM CHLORIDE 0.9% FLUSH 10 ML IV ×4 (07:47→20:15)
[2021-10-30] MEDS: PANTOPRAZOLE 40 MG VIAL IV ×2 (07:55→20:15)
[2021-10-30] MEDS: POTASSIUM CHLORIDE 20 MEQ TAB 40 MEQ PO (08:56)
[2021-10-30] MEDS: MAGNESIUM CHLORIDE 64 MG TABLET 128 MG PO (08:56)
--- NOTE | 2021-10-30 10:33 | PM.PNPO.1 ---
Subjective Subjective Date Patient Seen: 10/30/21 Time Patient Seen: 10:37 Interval history: continued emesis overnight nasogastric tube placed with improvement in nausea and abdominal distension. Frustrated with her lack of progress. Few small volume bloody bowel movements. No flatus Exam Vital Signs (past 8 hours): - 10/30/21 05:15 10/30/21 07:35 Temperature 97.0 F L 98.0 F Pulse Rate 53 L 85 Respiratory Rate 16 16 Blood Pressure 153/88 H 154/94 H Pulse Oximetry 95 99 Oxygen Delivery Method Room Air Oxygen Flow Rate 0 Narrative Exam Narrative: General adult female alert oriented no acute distress fatigued Abdo soft incision clean dry intact. Less distended than yesterday compressible Objective Labs Result Diagrams: 10/30/21 05:55 10/30/21 05:55 Labs: Laboratory Results - last 24 hr 10/30/21 10/30/21 10/30/21 05:55 05:55 05:55 WBC 9.2 RBC 3.64 L Hgb 10.9 L Hct 32.3 L MCV 88.8 MCH 30.0 MCHC 33.8 RDW 13.4 Plt Count 460 H Sodium 134 L Potassium 3.3 L Chloride 105 Carbon Dioxide 24 BUN 8 Creatinine 0.62 Estimated GFR > 60.0 BUN/Creatinine Ratio 12.9 Glucose 109 Calcium 8.1 L Phosphorus Magnesium 1.6 10/30/21 05:55 WBC RBC Hgb Hct MCV MCH MCHC RDW Plt Count Sodium Potassium Chloride Carbon Dioxide BUN Creatinine Estimated GFR BUN/Creatinine Ratio Glucose Calcium Phosphorus 3.6 Magnesium [facility] Medical History (Updated 10/23/21 @ 11:09 by Srini Klein MD) Chicken pox Cholelithiasis Hayfever HTN (hypertension) Hypothyroidism (~1969) Kidney disease Kidney failure (2011) Measles Mumps 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 Osteoarthritis (~1989) Osteoarthritis of left knee (08/27/14) 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) Plantar fasciitis Sinus drainage Systemic fungal infection Systemic fungal infection affecting skin (1978) Tinnitus (~1993) Toe fracture (2007) Upper arm fracture (1950) UTI (urinary tract infection) Surgical History (Updated 10/11/21 @ 12:11 by Mireya Sutton RN) Anesthesia History of elective (1969) History of gynecologic surgery (2013) History of knee replacement (12/2014) History of surgery on arm (1950) History of toe surgery (2007) History of tonsillectomy (1995) Hx laparoscopic cholecystectomy (05/18/21) Status post arthroscopy (1995) Status post biopsy (2011) Status post breast biopsy (2006) Status post laparoscopy (2011) Status post vaginal hysterectomy (1979) Family History Grandmother Hyperlipidemia Hypertension Mother Stroke Rheumatoid arthritis Personal history of twin in prior Grandfather Prostate cancer Grandmother Hyperlipidemia Hypertension Brother Crohn's disease Father Brain cancer Social History household members: spouse Smoking Status: Former smoker alcohol intake: current Assessment & Plan Post-op Postoperative Procedures: Procedures Operation Date: 10/22/21 11:15 Actual Procedure Side Surgeon p Laparoscopic Appendectomy, convert to open Right hemicolectomy Not Applicable Srini Klein MD Postoperative status narrative: 76-year-old woman postoperative day 7 status post interval appendectomy and right hemicolectomy for for perforated appendicitis with abscess. She continues to have a prolonged postoperative ileus. 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 -NPO with NGT low intermittent suction -CT abdomen pelvis with IV and p.o. contrast today. Assessment for previous right lower quadrant abscess and other potential contributing factors to postoperative ileus/ -malnutrition now 7 days without any significant nutrition. We will start TPN with a PICC line -electrolyte repletion
[2021-10-30] MEDS: ONDANSETRON 4 MG/2 ML INJ IV (10:47)
[2021-10-30 11:48] LABS: Triglycerides 141 mg/dL (35-150)
--- NOTE | 2021-10-30 12:15 | PC.NURSE ---
Addendum entered by Madhavi Karimi R.N. 10/30/21 19:21: PICC RN power flushed left picc attempting to uncoil the newly placed PICC. Repeat chest xray taken to check if power flush worked. Per Radiologist Dr Long reading left PICC is in the proper location and able to be used. I personally spoke with Dr Harper to verify this. Addendum entered by Madhavi Karimi R.N. 10/30/21 14:36: 1330 THis RN was called to patients room by RT, RT stated that patient is having a seizure. Upon entering room patient was alert oriented had erythema to face, neck and torso. Patient was able to answer questions. PICC RN was at patients bedside placing PICC line to right upper extremity. PICC RN Junie reports as she was advancing the PICC line patient stated something is happening and then PICC RN reports patient started posturing.Per Junie this lasted about a minute. VSS, patient denied any chest pain and shortness of breath. While at patients bedside erythema to face, neck and torso resolved. PAtient reports feeling better. States that was scary, reassurance given. Dr Greene paged and informed of above, Dr Greene consulted with Dr Calloway, no new orders at this time. Xray of PICC shows PICC is coiled in the distal SVC. PICC RN aware and will adjust. Original Note: Patient given 900cc contrast through NG tube by CIELO. Patient taken down for CT.
--- NOTE | 2021-10-30 14:50 | RT ---
Called to bedside for assist per RN pt had a seizure , pt on room air responsive and no distress noted. Rn and staff at bedside released by RN
--- NOTE | 2021-10-30 16:05 | DI.RAD.S_ITS ---
PROCEDURE: XR CHEST FOR PICC 1V INDICATIONS: picc COMPARISON: [facility], ASTRID, XR CHEST FOR PICC 1V, 10/30/2021, 13:35. FINDINGS: Right upper extremity PICC line has been removed, and there is now a left upper extremity PICC line which is also cold in the distal SVC. No pneumothorax. IMPRESSION: Left upper extremity PICC line tip coiled in the distal SVC. No pneumothorax. Dictated by: Heath Mccoy M.D. on 10/30/2021 at 16:29 Approved by: Heath Mccoy M.D. on 10/30/2021 at 16:34
[2021-10-30] MEDS: ENOXAPARIN 40 MG/0.4 ML SYRINGE SUBCUT (17:42)
[2021-10-30] MEDS: AA 5 %/CALCIUM/LYTES/DEXT 20 % 1,000 ML with MULTIVITAMIN 10 ML, TRACE ELEMENTS 1 ML 42.125 ML IV (19:28)
[2021-10-30] MEDS: LACTATED RINGERS 1,000 ML 50 ML IV (20:16)
--- NOTE | 2021-10-30 22:49 | PC.NURSE ---
Pt TPN waqs started tonight around 1944 at 42 ml/hr. Dayshift ЕЛЕНА Hendrickson when to radiology to speak with then and make sure the PICC was in the right place which it was. PICC flushing. Spoke to Dr. Greene and made aware. LR decreased to [address] Greene. pt resting right now. will start BS at midnight.
[2021-10-31] MEDS: METOCLOPRAMIDE 10 MG/2 ML INJ IV ×5 (00:15→23:14)
[2021-10-31] MEDS: HYDROMORPHONE 1 MG INJ 0.5 MG IV ×2 (00:15→23:14)
[2021-10-31] MEDS: LEVOTHYROXINE 88 MCG TABLET PO (05:05)
[2021-10-31 06:00] VITALS: BP 150/91; PULSE 86; RESP 16; TEMP 36.1; O2SAT 97
[2021-10-31 06:08] LABS: Add Manual Diff / Slide Review NO; Basophils Absolute Auto 100 /uL (0-100); Basophils Percent Auto 0.7 % (0-2); Eosinophils Absolute Auto 200 /uL (0-450); Eosinophils Percent Auto 2.2 % (2-4); Hematocrit 31.4 % (36-46); Hemoglobin 10.6 g/dL (12.0-16.0); Lymphocytes Absolute Auto 1400 /uL (1100-4500); Lymphocytes Percent Auto 15.4 % (25-40); Mean Corpuscular HGB Conc 33.8 % (30-36); Mean Corpuscular Hemoglobin 29.7 PG (26-34); Monocytes Absolute Auto 600 /uL (0-900); Monocytes Percent Auto 6.8 % (3-14); Neutrophils Absolute Auto 6600 /uL (1500-7000); Neutrophils Percent Auto 74.9 % (50-75); Platelet Count 478 X10^3/uL (150-400); Red Blood Cell Count 3.56 X10^6/uL (4.0-5.2); Red Cell Distribution Width 13.6 % (11.6-14.8); White Blood Cell Count 8.8 X10^3/uL (4.5-11.0)
[2021-10-31 06:33] LABS: BUN Creatinine Ratio 13.3 (6-22); Blood Urea Nitrogen 8 mg/dL (7-17); Calcium 8.3 mg/dL (8.4-10.2); Carbon Dioxide 28 mmol/L (22-32); Chloride 103 mmol/L (98-107); Estimated Glomerular Filt Rate > 60.0 mL/min (>60); Glucose 145 mg/dL (80-110); HEMOLYSIS < 15 (0-50); Magnesium 1.7 mg/dL (1.6-2.3); Phosphorous 3.6 mg/dL (2.8-4.1); Potassium 3.8 mmol/L (3.4-5.1); Sodium 132 mmol/L (137-145)
[2021-10-31 07:50] VITALS: BP 158/99; PULSE 89; RESP 17; TEMP 36; O2SAT 97
[2021-10-31] MEDS: PANTOPRAZOLE 40 MG VIAL IV ×2 (07:54→20:33)
[2021-10-31] MEDS: SODIUM CHLORIDE 0.9% FLUSH 10 ML IV ×2 (07:54→20:33)
--- NOTE | 2021-10-31 09:39 | PM.PNPO.1 ---
Subjective Subjective Date Patient Seen: 10/31/21 Time Patient Seen: 09:42 Interval history: CT abdomen pelvis-no intra-abdominal abscess dilated loops of small bowel PICC line placed TPN started No nausea. Continues with NG tube -no flatus 2 small bowel movements Exam Vital Signs (past 8 hours): - 10/31/21 06:00 Temperature 97.0 F L Pulse Rate 86 Respiratory Rate 16 Blood Pressure 150/91 H Pulse Oximetry 97 Oxygen Delivery Method Room Air Oxygen Flow Rate 0 Narrative Exam Narrative: General adult woman alert oriented no acute distress Abdomen soft appropriately tender to palpation. Mildly distended Objective Labs Result Diagrams: 10/31/21 05:50 10/31/21 05:50 Labs: Laboratory Results - last 24 hr 10/30/21 10/30/21 10/31/21 05:55 05:55 05:50 WBC 8.8 RBC 3.56 L Hgb 10.6 L Hct 31.4 L MCV 88.0 MCH 29.7 MCHC 33.8 RDW 13.6 Plt Count 478 H Neut % (Auto) 74.9 Lymph % (Auto) 15.4 L Elbert % (Auto) 6.8 Eos % (Auto) 2.2 Baso % (Auto) 0.7 Neut # (Auto) 6600 Lymph # (Auto) 1400 Elbert # (Auto) 600 Eos # (Auto) 200 Baso # (Auto) 100 Sodium Potassium Chloride Carbon Dioxide BUN Creatinine Estimated GFR BUN/Creatinine Ratio Glucose Calcium Phosphorus Magnesium Prealbumin 11.0 L Triglycerides 141 10/31/21 05:50 WBC RBC Hgb Hct MCV MCH MCHC RDW Plt Count Neut % (Auto) Lymph % (Auto) Elbert % (Auto) Eos % (Auto) Baso % (Auto) Neut # (Auto) Lymph # (Auto) Elbert # (Auto) Eos # (Auto) Baso # (Auto) Sodium 132 L Potassium 3.8 Chloride 103 Carbon Dioxide 28 BUN 8 Creatinine 0.60 Estimated GFR > 60.0 BUN/Creatinine Ratio 13.3 Glucose 145 H Calcium 8.3 L Phosphorus 3.6 Magnesium 1.7 Prealbumin Triglycerides [facility] Medical History (Updated 10/23/21 @ 11:09 by Srini Klein MD) Chicken pox Cholelithiasis Hayfever HTN (hypertension) Hypothyroidism (~1969) Kidney disease Kidney failure (2011) Measles Mumps 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 Osteoarthritis (~1989) Osteoarthritis of left knee (08/27/14) 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) Plantar fasciitis Sinus drainage Systemic fungal infection Systemic fungal infection affecting skin (1978) Tinnitus (~1993) Toe fracture (2007) Upper arm fracture (1950) UTI (urinary tract infection) Surgical History (Updated 10/11/21 @ 12:11 by Mireya Sutton RN) Anesthesia History of elective (1969) History of gynecologic surgery (2013) History of knee replacement (12/2014) History of surgery on arm (1950) History of toe surgery (2007) History of tonsillectomy (1995) Hx laparoscopic cholecystectomy (05/18/21) Status post arthroscopy (1995) Status post biopsy (2011) Status post breast biopsy (2006) Status post laparoscopy (2011) Status post vaginal hysterectomy (1979) Family History Grandmother Hyperlipidemia Hypertension Mother Stroke Rheumatoid arthritis Personal history of twin in prior Grandfather Prostate cancer Grandmother Hyperlipidemia Hypertension Brother Crohn's disease Father Brain cancer Social History household members: spouse Smoking Status: Former smoker alcohol intake: current Assessment & Plan Post-op Postoperative Procedures: Procedures Operation Date: 10/22/21 11:15 Actual Procedure Side Surgeon p Laparoscopic Appendectomy, convert to open Right hemicolectomy Not Applicable Srini Klein MD Postoperative status narrative: 76-year-old woman postoperative day 8 status post right hemicolectomy. Continues to have a postoperative ileus. Reviewed CT abdomen pelvis from yesterday which demonstrates no intra-abdominal abscess the ileocolic anastomosis is normal in its appearance there are dilated loops of small bowel. -continue nasogastric tube okay for clamp trial -NPO except for sips ice chips and meds. -continue TPN -out of bed ambulate
[2021-10-31] MEDS: LACTATED RINGERS 1,000 ML 50 ML IV (11:19)
[2021-10-31 12:00] VITALS: BP 119/97; PULSE 95; RESP 16; TEMP 36.2; O2SAT 98
--- NOTE | 2021-10-31 12:33 | PT.IIE ---
Current Diagnoses Acute appendicitis with perforation and localized peritonitis, with abscess (10/23/21) Encounter for follow-up examination after completed treatment for conditions other than malignant neoplasm (10/23/21) Surgery Performed Operation Date: 10/22/21 11:15 Actual Procedures p Laparoscopic Appendectomy, convert to open Right hemicolectomy(Not Applicable) - Srini Klein MD Surgical History (Last Updated 10/11/21 @ 12:11 by Mireya Sutton RN) Anesthesia History of elective (1969) History of knee replacement (12/2014) History of tonsillectomy (1995) Status post arthroscopy (1995) Status post biopsy (2011) Status post breast biopsy (2006) Status post laparoscopy (2011) Status post vaginal hysterectomy (1979) Medical History (Last Reviewed 09/03/21 @ 09:39 by Rudolph Freire DO) Chicken pox Cholelithiasis Hayfever HTN (hypertension) Hypothyroidism (~1969) Kidney disease Kidney failure (2011) Measles Mumps 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 Pt is an effective verbal communicator. Mobility and Gait Independent in all regards. Activities of Daily Living and IADL's Independent. Pt drives. Social History Household Members spouse Living Arrangements House Number of Floors (Floors) 3 or More Floors Number of Stairs To Enter/Railing? 13 ABBIE with left rail ascending. Pt enters on main/ second level. She climbs another 13 steps with left side rail to the bedroom level . Home Environment Standard Height Toilet,Walk in Shower,Built-In Shower Seat Home Equipment Grab Bars In Shower Employment Status Retired Additional Social History Comment Pt lives in [place] with her spouse, Al. Both are retired. 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 M2 PT-IP Current Condition Start: 10/31/21 08:40 Freq: NEEDED Status: Active Protocol: Document 10/31/21 12:33 AW (Rec: 10/31/21 13:06 AW [id number]) Physical Therapy Current Condition Current Condition Evaluation Date 10/31/21 Treatment Diagnosis s/p R hemicolectomy and interval appy; decreased activity tolerance Onset Date 10/22/21 M3 PT-IP Subjective Start: 10/31/21 08:40 Freq: NEEDED Status: Active Protocol: Document 10/31/21 12:33 AW (Rec: 10/31/21 13:06 AW [id number]) Subjective Physical Therapy Visit Type Type Initial Evaluation Visit Start Time 12:17 Visit Stop Time 12:33 Total Visit Minutes 16 Notes NG tube is clamped at this encounter. Pt had PICC placed in LUE yesterday and is on TPN . Physical Therapy Visit Comments Patient Comments I've been walking up and down the halls with my . Patient Goals Return to [facility] Therapy Pain Assessment Pain When Pain Assessed During Mobility Pain Present Pain Present Denied Pain M4 PT-IP Mobility and Gait Start: 10/31/21 08:40 Freq: NEEDED Status: Active Protocol: Document 10/31/21 12:33 AW (Rec: 10/31/21 13:06 AW [id number]) PT-Bed Mobility Assessment Supine to Sit Supine to Sit Independent Sit to Supine Sit to Supine Independent PT-Transfer Assessment Sit to and From Stand Sit to and from Stand Standby Assistance Equipment Transfer Assistive Device None Orthotic/Prosthetic Devices or Brace: No Transfers Transfer Destination Bed Transfer Technique pt ambulated without AD Transfer Ability Level of Assist Standby Assistance Comments Mobility Comments Pt was lying in bed resting as PT arrived. She completed all bed mobility independently and reported no pain. She stood EOB SBA as PT assisted with lines. She ambulated in the halls and participated in stairs assessment SBA without AD. She returned to the room and completed sit to supine IND. Gait Assessment Gait Gait Assistance Required: Standby Assistance Distance (Feet) 300 Assistive Devices Assistive Device None,Gait Belt Orthotic/Prosthetic Devices or Brace: No Gait Deviations General Gait Pattern Decreased Stride Length, Decreased Feet Clearance Factors Limiting Gait Function Factors Limiting Gait Function Decreased Activity Tolerance Comments Gait Comments Pt ambulated without AD and reported no pain today. She was able to complete 4-item DGI with score of 4/4. Stair Climbing Assessment Evaluation Level of Assist On Stairs Standby Assistance Devices Stair Climbing Assistive Devices Left Railing Technique/Endurance Stair Climbing Direction Ascend and Descend Stair Climbing Technique Step Over Step Number of Steps Climbed 3 Query Text: Stair Climbing Set # Repetitions (reps) 2 PT-Balance Assessment Sitting Balance and Reactions Static Sitting Balance Ability Good Dynamic Sitting Balance Ability Good Standing Balance and Reactions Static Standing Balance Ability Good Dynamic Standing Balance Ability Good Device Used no AD M5 PT-IP Objective Assessments Start: 10/31/21 08:40 Freq: NEEDED Status: Active Protocol: Document 10/31/21 12:33 AW (Rec: 10/31/21 13:06 AW [id number]) Orientation Orientation/Cognition Level of Alertness Alert Orientation Name,Day of Week,Place, Situation Language Function Ability No Deficits Noted Safety Awareness Understands Safety Issues Memory Description No Deficits Noted Gross Range of Motion Lower Extremity ROM Assessment Within Functional Limits Strength Lower Extremity Strength Assessment Within Functional Limits Sensation Assessment Sensation Gross Sensation WNL M6 PT-IP Treatment Start: 10/31/21 08:40 Freq: NEEDED Status: Active Protocol: Document 10/31/21 12:33 AW (Rec: 10/31/21 13:06 AW [id number]) Physical Therapy Treatment Education Education Provided Safety Other Treatments Other Treatment Performed Discussed assistive device with pt for times when she may have pain. Pt states she would be able to acquire any equipment from [employer]. M7 PT-IP Assessment and Plan Start: 10/31/21 08:40 Freq: NEEDED Status: Active Protocol: Document 10/31/21 12:33 AW (Rec: 10/31/21 13:06 AW [id number]) PT Summary Assessment and Plan Potential Rehabilitation Potential Good Status of Condition at Evaluation Evolving Summary Impairments Pain,Activity Tolerance Assessment Summary Elsy is an active 76 yo woman who is independent in all regards at baseline. She has had a protracted hospital course following R hemicolectomy and interval appendectomy. She now has a PICC line LUE for TPN as she has not been able to advance her diet. On assessment, pt was independent with bed mobility and SBA for ambulation without assistive device. She scored 4/4 on 4- item Dynamic Gait Index. Pt will likely be safe to discharge home with spouse assist once medically stable. Will follow up for one more visit with pt. If stable, will likely discharge from PT service. Goals Transfer Goal Independent Gait Goal Independent Gait Distance 500 Other Goals - up/down 13 steps with left rail ascending Days to Meet Goals 2 Frequency of Treatment Frequency Of Treatment Once a Day Treatment Plan Physical Therapy Treatment Plan Bed Mobility Training,Transfer Training,Gait Training, Therapeutic Exercise,Balance Retraining,Post Op Education, Discharge Planning Other Recommendations and Next Treatment progress gait and stairs; d/c Focus if meets goals Precautions Abdominal Surgery Precautions Log Roll,Lifting Restrictions, Gait Belt above Incisional Area Other Precautions PICC in LUE; NG tube Recommendations To Nursing Amount of Assist Needed Standby Assistance Discharge Recommendations PT Discharge Recommendations Home with Assistance Transportation Needs at Discharge Private Vehicle
--- NOTE | 2021-10-31 12:48 | PC.NURSE ---
NG tube has been clamped since 929, Patient requesting to be hooked back to suction, reports not really feeling nauseated but just apprehensive. NG connected back to LIS, returned 400cc clear yellow drainage in about 1o minutes. Patient denies pain is ambulating in [place]. Had one dark brown stool early this am.
[2021-10-31] MEDS: CALCIUM IV (17:50)
[2021-10-31] MEDS: SODIUM CHLORIDE IV (17:50)
[2021-10-31] MEDS: DEXT IV (17:50)
[2021-10-31] MEDS: LYTES IV (17:50)
[2021-10-31] MEDS: [UNRECOGNIZED DRUG - OTHER] IV (17:50)
[2021-10-31] MEDS: FAT EMULSIONS 50 GM/250 ML EMULSION IV (17:51)
[2021-10-31] MEDS: ENOXAPARIN 40 MG/0.4 ML SYRINGE SUBCUT (17:55)
[2021-10-31 20:25] VITALS: BP 136/89; PULSE 88; RESP 14; TEMP 36.8; O2SAT 97
--- NOTE | 2021-10-31 20:43 | PC.NURSE ---
NGT back to LIS per pt request, bowel tones hypoactive.
--- NOTE | 2021-11-01 05:37 | PC.NURSE ---
Pt NGT was only clamped for 1 hour tonight ([id number]).
[2021-11-01] MEDS: METOCLOPRAMIDE 10 MG/2 ML INJ IV ×3 (05:50→18:29)
[2021-11-01 06:00] VITALS: BP 147/85; PULSE 80; RESP 14; TEMP 36.5; O2SAT 97
[2021-11-01] MEDS: LEVOTHYROXINE 88 MCG TABLET PO (06:15)
[2021-11-01] MEDS: LACTATED RINGERS 1,000 ML 50 ML IV (06:15)
[2021-11-01 06:59] LABS: Add Manual Diff / Slide Review NO; Basophils Absolute Auto 100 /uL (0-100); Basophils Percent Auto 0.7 % (0-2); Eosinophils Absolute Auto 200 /uL (0-450); Eosinophils Percent Auto 2.9 % (2-4); Hematocrit 30.9 % (36-46); Hemoglobin 10.4 g/dL (12.0-16.0); Lymphocytes Absolute Auto 1400 /uL (1100-4500); Lymphocytes Percent Auto 17.2 % (25-40); Mean Corpuscular HGB Conc 33.7 % (30-36); Mean Corpuscular Hemoglobin 29.8 PG (26-34); Mean Corpuscular Volume 88.4 fL (80-100); Monocytes Absolute Auto 600 /uL (0-900); Monocytes Percent Auto 7.4 % (3-14); Neutrophils Absolute Auto 5800 /uL (1500-7000); Neutrophils Percent Auto 71.8 % (50-75); Platelet Count 474 X10^3/uL (150-400); Red Blood Cell Count 3.49 X10^6/uL (4.0-5.2); Red Cell Distribution Width 13.8 % (11.6-14.8); White Blood Cell Count 8.1 X10^3/uL (4.5-11.0)
[2021-11-01 07:05] LABS: BUN Creatinine Ratio 22.8 (6-22); Blood Urea Nitrogen 13 mg/dL (7-17); Carbon Dioxide 26 mmol/L (22-32); Chloride 104 mmol/L (98-107); Estimated Glomerular Filt Rate > 60.0 mL/min (>60); Glucose 124 mg/dL (80-110); HEMOLYSIS 17 (0-50); Phosphorous 3.9 mg/dL (2.8-4.1); Potassium 3.3 mmol/L (3.4-5.1); Sodium 134 mmol/L (137-145)
[2021-11-01] MEDS: SODIUM CHLORIDE 0.9% FLUSH 10 ML IV ×2 (08:18→20:33)
[2021-11-01] MEDS: PANTOPRAZOLE 40 MG VIAL IV ×2 (08:18→20:33)
--- NOTE | 2021-11-01 09:00 | CM.DPC ---
DCP Cont: Per Surgeon, pt continues to struggle to tolerate advancing diet and NG tube remains with some trials of clamping. Pt has had two small bowel movements. TPN started via PICC due to nutrition needs. 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 Pt was able to ambulate with PT SBA with no DME needed and completed stairs and recommending safe d/c home with spouse assist when medically stable. Plan: SW to follow closely for NGT and TPN to be eventually discontinued and to confirm no TPN needed at d/c as her Medicare would not cover home infusion and most SNF's do not accept TPN in their facilities. SIGIFREDO Garcia
--- NOTE | 2021-11-01 10:46 | PT-IP ANOTE ---
Attempted to see pt @10:46, pt refused therapy and requested to be d/c from PT as she has been ambulating in hallways w/o AD and feels she has no further needs. PT and RN aware.
--- NOTE | 2021-11-01 11:57 | DIET.PN1 ---
Dietary Progress Note Assessment: 76y F admitted for hemicolectomy experiencing post-op ileus requiring TPN. Pt LOS day 9 with persistent ileus, NG still in place but clamped for past 5h no nausea. Pt with some pink-tinged mucus discharge, no real BM, however, pt without PO solids for over week. Current TPN 1L Clinimix providing 880kcals and 50g PRO meeting 48% calorie and 52% protein needs of this patient. Pt is otherwise NPO. Ht: 170.18 cm Wt: 73.936 kg BMI: 25.5 UBW: Last BM: 11/01/21 (11/01/21 06:00) MNA: 10 Rafael Score: 20 Diet: 10/29/21 03:40 NPO Diet Diet Modifications: Sips of water and Ice chips ok Safety Tray needed?: No NPO Type: NPO except for Meds Labs: RBC 3.49 X10^6/uL (4.0-5.2) L 11/01/21 06:45 Hgb 10.4 g/dL (12.0-16.0) L 11/01/21 06:45 Hct 30.9 % (36-46) L 11/01/21 06:45 Creatinine 0.57 mg/dL (0.52-1.04) 11/01/21 06:45 Nutrition Diagnosis: Severe Acute Protein Calorie Malnutrition r/t extended NPO, insufficient TPN aeb pt s/p d9 hemicolectomy, pt with postop ileus NG to lis, pts TPN meeting 48% kcal and 52% protein needs. Interventions: 1. Recc increasing TPN to 2L Clinimix with IVFE every other day providing 100% kcals and 104% protein needs to support post-op healing and integrity of anastamosis. 2. If pt remains nausea free, recc allowing clear liquid or transitional post-op diet trial with TPN still running and NG clamped. Pt adement she does not want to remove NG until ileus resolved. EER: 1825kcals (25kcal/kg), 96g PRO (1.3g/kg) Monitoring/Evaluations: diet advancement, TPN rate increase Electronically Signed by: Sherie Perales 11/01/21 11:57 Clinical Dietitian [address] [address]
[2021-11-01] MEDS: POTASSIUM CHLORIDE IN WATER 10 MEQ/100 ML PIGGYBACK 100 MEQ IV ×4 (12:15→17:05)
[2021-11-01 13:00] VITALS: BP 154/76; PULSE 92; RESP 18; TEMP 36.6; O2SAT 96
--- NOTE | 2021-11-01 13:00 | P.PN_ITS ---
Subjective Subjective Date Patient Seen: 11/01/21 Time Patient Seen: 13:02 Interval history: Nasogastric tube was clamped all of yesterday and this morning. Small bowel movements over the past 24 hours No nausea or abdominal distention Exam Vital Signs (past 8 hours): - 11/01/21 06:00 Temperature 97.7 F Pulse Rate 80 Respiratory Rate 14 Blood Pressure 147/85 H Pulse Oximetry 97 Oxygen Delivery Method Room Air Oxygen Flow Rate 0 Narrative Exam Narrative: General adult woman alert oriented no acute distress Abdomen soft nontender nondistended. Objective Labs Result Diagrams: 11/01/21 06:45 11/01/21 06:45 Labs: Laboratory Results - last 24 hr 11/01/21 11/01/21 06:45 06:45 WBC 8.1 RBC 3.49 L Hgb 10.4 L Hct 30.9 L MCV 88.4 MCH 29.8 MCHC 33.7 RDW 13.8 Plt Count 474 H Neut % (Auto) 71.8 Lymph % (Auto) 17.2 L Harnett % (Auto) 7.4 Eos % (Auto) 2.9 Baso % (Auto) 0.7 Neut # (Auto) 5800 Lymph # (Auto) 1400 Harnett # (Auto) 600 Eos # (Auto) 200 Baso # (Auto) 100 Sodium 134 L Potassium 3.3 L Chloride 104 Carbon Dioxide 26 BUN 13 Creatinine 0.57 Estimated GFR > 60.0 BUN/Creatinine Ratio 22.8 H Glucose 124 H Calcium 8.0 L Phosphorus 3.9 Magnesium 2.0 PFS Medical History (Updated 10/23/21 @ 11:09 by Srnii Klein MD) Chicken pox Cholelithiasis Hayfever HTN (hypertension) Hypothyroidism (~1969) Kidney disease Kidney failure (2011) Measles Mumps 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 Osteoarthritis (~1989) Osteoarthritis of left knee (08/27/14) 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) Plantar fasciitis Sinus drainage Systemic fungal infection Systemic fungal infection affecting skin (1978) Tinnitus (~1993) Toe fracture (2007) Upper arm fracture (1950) UTI (urinary tract infection) Surgical History (Updated 10/11/21 @ 12:11 by Mireya Sutton RN) Anesthesia History of elective (1969) History of gynecologic surgery (2013) History of knee replacement (12/2014) History of surgery on arm (1951) History of toe surgery (2007) History of tonsillectomy (1995) Hx laparoscopic cholecystectomy (05/18/21) Status post arthroscopy (1995) Status post biopsy (2011) Status post breast biopsy (2006) Status post laparoscopy (2011) Status post vaginal hysterectomy (1979) Family History Grandmother Hyperlipidemia Hypertension Mother Stroke Rheumatoid arthritis Personal history of twin in prior Grandfather Prostate cancer Grandmother Hyperlipidemia Hypertension Brother Crohn's disease Father Brain cancer Social History household members: spouse Smoking Status: Former smoker alcohol intake: current Assessment & Plan Post-op Postoperative Procedures: Procedures Operation Date: 10/22/21 11:15 Actual Procedure Side Surgeon p Laparoscopic Appendectomy, convert to open Right hemicolectomy Not Applicable Srini Klein MD Postoperative status narrative: 76-year-old woman postoperative day 10 status post right hemicolectomy resolving postop ileus. -nasogastric tube removed -start clear liquid diet -continue TPN entail tolerating adequate nutrition -SCDs and Lovenox -DC IV fluids
[2021-11-01] MEDS: ENOXAPARIN 40 MG/0.4 ML SYRINGE SUBCUT (18:29)
[2021-11-01] MEDS: CALCIUM IV (18:56)
[2021-11-01] MEDS: DEXT IV (18:56)
[2021-11-01] MEDS: LYTES IV (18:56)
[2021-11-01] MEDS: [UNRECOGNIZED DRUG - OTHER] IV (18:56)
[2021-11-01] MEDS: SODIUM CHLORIDE IV (18:56)
[2021-11-01 19:35] VITALS: BP 136/74; PULSE 91; RESP 18; TEMP 36.4; O2SAT 98
[2021-11-02] MEDS: METOCLOPRAMIDE 10 MG/2 ML INJ IV ×5 (00:11→23:36)
[2021-11-02 04:13] VITALS: BP 136/86; PULSE 81; RESP 18; TEMP 36.6; O2SAT 96
[2021-11-02 05:19] LABS: Add Manual Diff / Slide Review NO; Basophils Absolute Auto 0 /uL (0-100); Basophils Percent Auto 0.5 % (0-2); Eosinophils Absolute Auto 200 /uL (0-450); Eosinophils Percent Auto 2.8 % (2-4); Hematocrit 29.6 % (36-46); Hemoglobin 10.1 g/dL (12.0-16.0); Lymphocytes Absolute Auto 1800 /uL (1100-4500); Mean Corpuscular Volume 88.2 fL (80-100); Monocytes Absolute Auto 600 /uL (0-900); Monocytes Percent Auto 7.1 % (3-14); Neutrophils Absolute Auto 5200 /uL (1500-7000); Neutrophils Percent Auto 66.6 % (50-75); Platelet Count 449 X10^3/uL (150-400); Red Blood Cell Count 3.36 X10^6/uL (4.0-5.2); Red Cell Distribution Width 13.7 % (11.6-14.8); White Blood Cell Count 7.7 X10^3/uL (4.5-11.0)
[2021-11-02 05:21] LABS: BUN Creatinine Ratio 19.4 (6-22); Blood Urea Nitrogen 12 mg/dL (7-17); Calcium 7.9 mg/dL (8.4-10.2); Carbon Dioxide 26 mmol/L (22-32); Chloride 107 mmol/L (98-107); Estimated Glomerular Filt Rate > 60.0 mL/min (>60); Glucose 111 mg/dL (80-110); HEMOLYSIS < 15 (0-50); Magnesium 2.1 mg/dL (1.6-2.3); Phosphorous 3.8 mg/dL (2.8-4.1); Potassium 3.8 mmol/L (3.4-5.1); Sodium 136 mmol/L (137-145)
[2021-11-02] MEDS: LEVOTHYROXINE 88 MCG TABLET PO (05:57)
[2021-11-02] MEDS: SODIUM CHLORIDE 0.9% FLUSH 10 ML IV ×2 (08:49→20:10)
[2021-11-02] MEDS: PANTOPRAZOLE 40 MG VIAL IV (08:49)
[2021-11-02 12:22] VITALS: BP 134/86; PULSE 89; RESP 18; TEMP 36.3; O2SAT 96
--- NOTE | 2021-11-02 15:31 | PM.PN.1 ---
Subjective Subjective Date Patient Seen: 11/02/21 Time Patient Seen: 13:30 Interval history: tolerating diet of clears, some diarrhea Exam Vital Signs (past 8 hours): - 11/02/21 12:22 Temperature 97.4 F L Pulse Rate 89 Respiratory Rate 18 Blood Pressure 134/86 Pulse Oximetry 96 Oxygen Delivery Method Room Air Oxygen Flow Rate 0 Narrative Exam Narrative: abdomen is soft, not distended, kati in place. Objective Labs Result Diagrams: 11/02/21 04:55 11/02/21 04:55 Labs: Laboratory Results - last 24 hr 11/02/21 11/02/21 04:55 04:55 WBC 7.7 RBC 3.36 L Hgb 10.1 L Hct 29.6 L MCV 88.2 MCH 30.0 MCHC 34.0 RDW 13.7 Plt Count 449 H Neut % (Auto) 66.6 Lymph % (Auto) 23.0 L Archer % (Auto) 7.1 Eos % (Auto) 2.8 Baso % (Auto) 0.5 Neut # (Auto) 5200 Lymph # (Auto) 1800 Archer # (Auto) 600 Eos # (Auto) 200 Baso # (Auto) 0 Sodium 136 L Potassium 3.8 Chloride 107 Carbon Dioxide 26 BUN 12 Creatinine 0.62 Estimated GFR > 60.0 BUN/Creatinine Ratio 19.4 Glucose 111 H Calcium 7.9 L Phosphorus 3.8 Magnesium 2.1 PFSH Medical History (Updated 10/23/21 @ 11:09 by Srini Klein MD) Chicken pox Cholelithiasis Hayfever HTN (hypertension) Hypothyroidism (~1969) Kidney disease Kidney failure (2011) Measles Mumps 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 Osteoarthritis (~1989) Osteoarthritis of left knee (08/27/14) 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) Plantar fasciitis Sinus drainage Systemic fungal infection Systemic fungal infection affecting skin (1978) Tinnitus (~1993) Toe fracture (2007) Upper arm fracture (1950) UTI (urinary tract infection) Surgical History (Updated 10/11/21 @ 12:11 by Mireya Sutton RN) Anesthesia History of elective (1969) History of gynecologic surgery (2013) History of knee replacement (12/2014) History of surgery on arm (1950) History of toe surgery (2007) History of tonsillectomy (1995) Hx laparoscopic cholecystectomy (05/18/21) Status post arthroscopy (1995) Status post biopsy (2011) Status post breast biopsy (2006) Status post laparoscopy (2011) Status post vaginal hysterectomy (1979) Family History Grandmother Hyperlipidemia Hypertension Mother Stroke Rheumatoid arthritis Personal history of twin in prior Grandfather Prostate cancer Grandmother Hyperlipidemia Hypertension Brother Crohn's disease Father Brain cancer Social History household members: spouse Smoking Status: Former smoker alcohol intake: current Assessment & Plan Assessment & Plan narrative: Post op ileus resolved. S/P right colectomy Plan: possible discharge tomorrow Time Spent With Patient Critical Care time: I spent a total of [] minutes of critical care time on this patient's care today; this time is exclusive of procedural time.
[2021-11-02] MEDS: ENOXAPARIN 40 MG/0.4 ML SYRINGE SUBCUT (18:07)
[2021-11-02 19:25] VITALS: BP 128/75; PULSE 85; RESP 18; TEMP 36.7; O2SAT 97
[2021-11-03 03:48] VITALS: BP 146/85; PULSE 89; RESP 18; TEMP 36.8; O2SAT 97
--- NOTE | 2021-11-03 03:55 | PC.NURSE ---
Pt has had multiple/frequent loose/liquid BM's throughout the night. Pt denies any pain or nausea.
[2021-11-03] MEDS: LEVOTHYROXINE 88 MCG TABLET PO (06:37)
[2021-11-03] MEDS: SODIUM CHLORIDE 0.9% FLUSH 10 ML IV (06:37)
[2021-11-03] MEDS: METOCLOPRAMIDE 10 MG/2 ML INJ IV (06:37)
[2021-11-03] MEDS: PANTOPRAZOLE DR 40 MG TABLET PO (06:37)
[2021-11-03 08:00] VITALS: BP 131/84; PULSE 91; RESP 16; TEMP 36.6; O2SAT 100
--- NOTE | 2021-11-03 11:08 | PC.NURSE ---
Pt independent in room Denies discomfort. Pt received orders for discharge home PICC & Midline discontinued intact, Discharge instructions given to pt & spouse w/ understanding Pt escorted by staff via w/c to waiting vehicle D/C in stable condition.
--- NOTE | 2021-11-03 15:37 | CM.DPC ---
DCP Discharge home Per Surgeon, pt has been able to have NGT discontinued and stopped TPN and was able to tolerate advancing diet and was discharged from PT and was ambulating halls independently and voiding and medically stable to d/c home with no identified barriers to discharge. Per RN, pt and spouse given d/c instructions and spouse transported pt home today. SIGIFREDO Garcia
--- NOTE | 2021-11-06 09:11 | PM.DS.1 ---
History of Present Illness History of Present Illness Date Patient Seen: 11/03/21 Chief complaint: SDC Narrative: S/p right colectomy with post op ileus and nutrition support of TPN Discharge Providers Provider Date of admission: 10/23/21 23:41 Discharge Date: 11/03/21 Primary care physician: Sallie Burton DO Consults: 10/31/21 07:56 Consult to Discharge Planning Routine Comment: colectomy prolonged hosp stay for ileus Consult to Physical Therapy Evaluate & Treat Comment: Physician Instructions: Evaluate and Treat Discharge provider: Erin Cook MD Summary Hospital Course Discharge Diagnosis: s/p right colectomy, prolonged by post op ileus. Hospital Course: as above Status at Discharge Overall status at discharge: patient is progressing back to baseline Time Spent with Patient Time spent: Less than 30 minutes Exam Vital Signs (past 8 hours): Oxygen Delivery Method Room Air Oxygen Flow Rate 0 Narrative Exam Narrative: Good GI function with some loose stools. Wounds dry and intact. Needs follow up for staple removal. 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) Plantar fasciitis Sinus drainage Systemic fungal infection Systemic fungal infection affecting skin (1978) Tinnitus (~1993) Toe fracture (2007) Upper arm fracture (1950) UTI (urinary tract infection) Surgical History (Updated 10/11/21 @ 12:11 by Mireya Sutton RN) Anesthesia History of elective (1969) History of gynecologic surgery (2013) History of knee replacement (12/2014) History of surgery on arm (1950) History of toe surgery (2007) History of tonsillectomy (1995) Hx laparoscopic cholecystectomy (05/18/21) Status post arthroscopy (1995) Status post biopsy (2011) Status post breast biopsy (2006) Status post laparoscopy (2011) Status post vaginal hysterectomy (1979) Family History Grandmother Hyperlipidemia Hypertension Mother Stroke Rheumatoid arthritis Personal history of twin in prior Grandfather Prostate cancer Grandmother Hyperlipidemia Hypertension Brother Crohn's disease Father Brain cancer Social History household members: spouse Smoking Status: Former smoker alcohol intake: current Discharge Assessment & Plan Assessment and Plan Assessment: Progressing well s/p right colectomy Plan of Treatment: Home with lifing restrictions with follow up for staple removal Discharge Plan Discharge Plan Patient Disposition: Home Provider Discharge Comment: No lifting greater than 20 lb for 2 weeks. Okay to remove the outer dressing and shower after 24 hours. Leave the Steri-Strips on until they start to peel off in 1-2 weeks. Discharge orders & Medications Prescriptions: Continued estradiol [Yuvafem] 10 mcg tablet See Rx Instructions .ROUTE .COMPLEX Qty: 4 0RF Dose Instruction: INSERT 1 TABLET (10 MCG) VAGINALLY TWICE WEEKLY Rx Instructions: INSERT 1 TABLET (10 MCG) VAGINALLY TWICE WEEKLY levothyroxine 88 mcg capsule 88 mcg PO DAILY Qty: 90 3RF cholecalciferol (vitamin D3) 25 mcg (1,000 unit) capsule 25 mcg PO DAILY 0RF acetaminophen [Tylenol] 325 mg capsule 650 mg PO QID PRN (Reason: pain) Qty: 60 0RF phytonadione (vitamin K1) 1 mg/0.5 mL Solution 1 mg PO DAILY 0RF calcium carbonate-vitamin D3 600 mg(1,500mg) -500 unit Tablet Extended Release 24 Hr 1 tab PO DAILY 0RF Glucosamine Chondroitin 550-30-1 mg Capsule 1 cap PO DAILY 0RF Follow up/Referrals: Sallie Burton DO [Primary Care Provider] - Diet/Activity/Treatments Diet: Diet as Tolerated Visit Report/Discharge Packet Instructions: Colectomy -- Open Surgery, DI for Ileus, DI for an Appendectomy, DI for Laparoscopy Stand Alone Forms: Surgery Discharge Discharge Data Primary Care Provider: Sallie Burton
== END 2021-11-03 11:00 | disposition home or self-care (01) | DRG 330 ==
LOC: OR 23:42 → AC 23:42
PROVIDERS: Surgery; Admitting Provider Surgery; PCP Family Medicine; Referring Provider Surgery; Visit Provider Surgery
PROC: 0DTJ4ZZ Resection of Appendix, Percutaneous Endoscopic Approach (ICD-10-PCS; CPT 44970; principal; 2021-10-22 11:15)
DX: K35.33 Acute appendicitis with perforation, localized peritonitis, and gangrene, with abscess (principal); K56.7 Ileus, unspecified; E46 Unspecified protein-calorie malnutrition; N80.5 Endometriosis of intestine; Z68.25 Body mass index [BMI] 25.0-25.9, adult; K57.90 Diverticulosis of intestine, part unspecified, without perforation or abscess without bleeding; E03.9 Hypothyroidism, unspecified; Z20.822 Contact with and (suspected) exposure to COVID-19; Z87.891 Personal history of nicotine dependence
CPT/HCPCS: 36415; 36569; 36591; 44160; 71045; 71260; 74018; 74177; 80048; 82962; 83735; 84100; 84134; 84478; 85025; 85027; 87635; 97161; 99213; B4185; B4189; C9113; C9290; J0171; J0330; J1100; J1170; J1650; J2060; J2250; J2405; J2543; J2704; J2765; J3010; J3475; Q9967

== ENCOUNTER → 2021-11-10 10:38 | Outpatient (CLI) | payer MEDICARE, OTHER, SELFPAY ==
[2021-10-22 18:13] VITALS: BMI 25.5
--- NOTE | 2021-11-10 10:41 | DI.RAD.S_ITS ---
PROCEDURE: XR CHEST 2V INDICATIONS: Dyspnea TECHNIQUE: 2 views of the chest were acquired. COMPARISON: [facility], CR, XR CHEST FOR PICC 1V, 10/30/2021, 17:53. [facility], CR, XR CHEST FOR PICC 1V, 10/30/2021, 16:04. FINDINGS: Surgical changes and devices: Left-sided PICC line is been removed. Lungs and pleura: Lungs are clear. Blunting of the right costophrenic angle. No pneumothorax. Mediastinum: Mediastinal contours are normal. Heart size is normal. Bones and chest wall: No suspicious bony abnormalities. Soft tissues appear unremarkable. IMPRESSION: Trace or small right pleural effusion. Dictated by: Roberth Blanc M.D. on 11/10/2021 at 12:35 Approved by: Roberth Blanc M.D. on 11/10/2021 at 12:37
[2021-11-10 12:26] LABS: Add Manual Diff / Slide Review NO; Basophils Absolute Auto 0 /uL (0-100); Basophils Percent Auto 0.2 % (0-2); Eosinophils Absolute Auto 0 /uL (0-450); Eosinophils Percent Auto 0.1 % (2-4); Hematocrit 32.1 % (36-46); Hemoglobin 10.5 g/dL (12.0-16.0); Lymphocytes Absolute Auto 1600 /uL (1100-4500); Lymphocytes Percent Auto 12.5 % (25-40); Mean Corpuscular HGB Conc 32.6 % (30-36); Mean Corpuscular Hemoglobin 29.3 PG (26-34); Mean Corpuscular Volume 89.8 fL (80-100); Monocytes Absolute Auto 1200 /uL (0-900); Monocytes Percent Auto 8.8 % (3-14); Neutrophils Absolute Auto 10300 /uL (1500-7000); Neutrophils Percent Auto 78.4 % (50-75); Platelet Count 435 X10^3/uL (150-400); Red Blood Cell Count 3.58 X10^6/uL (4.0-5.2); Red Cell Distribution Width 14.5 % (11.6-14.8); White Blood Cell Count 13.1 X10^3/uL (4.5-11.0)
[2021-11-10 12:45] LABS: Alanine Aminotransferase 21 IU/L (<35); Albumin 4.1 g/dL (3.5-5.0); Albumin Globulin Ratio 1.2 (1.0-2.8); Alkaline Phosphatase 85 U/L (38-126); Aspartate Aminotransferase 23 IU/L (14-36); BUN Creatinine Ratio 22.4 (6-22); Bilirubin Total 0.7 mg/dL (0.2-1.3); Blood Urea Nitrogen 15 mg/dL (7-17); Calcium 9.1 mg/dL (8.4-10.2); Carbon Dioxide 25 mmol/L (22-32); Chloride 102 mmol/L (98-107); Estimated Glomerular Filt Rate > 60.0 mL/min (>60); Globulin 3.4 g/dL (1.7-4.1); Glucose 120 mg/dL (80-110); HEMOLYSIS < 15 (0-50); Potassium 4.1 mmol/L (3.4-5.1); Sodium 136 mmol/L (137-145); Total Protein 7.5 g/dL (6.3-8.2)
[2021-11-10 13:20] LABS: D Dimer 722 ng/mL (<230)
== END ==
PROVIDERS: PCP Family Medicine; Referring Provider Surgery; Visit Provider Surgery
DX: Z09 Encounter for follow-up examination after completed treatment for conditions other than malignant neoplasm (principal); R06.00 Dyspnea, unspecified
CPT/HCPCS: 36415; 71046; 80053; 85025; 85379

== ENCOUNTER → 2021-12-17 08:11 | Outpatient (CLI) | payer MEDICARE, OTHER, SELFPAY ==
[2021-10-22 18:13] VITALS: BMI 25.5
[2021-12-17 08:41] LABS: Add Manual Diff / Slide Review NO; Basophils Absolute Auto 0 /uL (0-100); Basophils Percent Auto 0.7 % (0-2); Eosinophils Absolute Auto 200 /uL (0-450); Eosinophils Percent Auto 4.3 % (2-4); Hematocrit 38.8 % (36-46); Hemoglobin 12.7 g/dL (12.0-16.0); Lymphocytes Absolute Auto 1900 /uL (1100-4500); Mean Corpuscular HGB Conc 32.8 % (30-36); Mean Corpuscular Hemoglobin 29.4 PG (26-34); Mean Corpuscular Volume 89.4 fL (80-100); Monocytes Absolute Auto 400 /uL (0-900); Neutrophils Absolute Auto 2200 /uL (1500-7000); Platelet Count 331 X10^3/uL (150-400); Red Blood Cell Count 4.33 X10^6/uL (4.0-5.2); Red Cell Distribution Width 15.3 % (11.6-14.8); White Blood Cell Count 4.9 X10^3/uL (4.5-11.0)
[2021-12-17 08:56] LABS: Alanine Aminotransferase 14 IU/L (<35); Albumin 4.1 g/dL (3.5-5.0); Albumin Globulin Ratio 1.6 (1.0-2.8); Alkaline Phosphatase 67 U/L (38-126); Aspartate Aminotransferase 18 IU/L (14-36); BUN Creatinine Ratio 23.9 (6-22); Bilirubin Total 0.5 mg/dL (0.2-1.3); Blood Urea Nitrogen 22 mg/dL (7-17); Calcium 9.5 mg/dL (8.4-10.2); Carbon Dioxide 25 mmol/L (22-32); Chloride 110 mmol/L (98-107); Cholesterol 246 mg/dL (140-199); Estimated Glomerular Filt Rate 59.2 mL/min (>60); Globulin 2.6 g/dL (1.7-4.1); Glucose 113 mg/dL (80-110); HEMOLYSIS < 15 (0-50); Potassium 4.7 mmol/L (3.4-5.1); Sodium 142 mmol/L (137-145); Total Protein 6.7 g/dL (6.3-8.2); Triglycerides 132 mg/dL (35-150)
[2021-12-17 09:06] LABS: HDL Cholesterol 111 mg/dL (40-60); LDL Cholesterol Calculated 109 mg/dL (<100)
[2021-12-17 09:24] LABS: TSH w/ Reflex to FT4 0.92 uIU/mL (0.47-4.68)
== END ==
PROVIDERS: PCP Family Medicine; Referring Provider Family Medicine; Visit Provider Family Medicine
DX: E03.9 Hypothyroidism, unspecified (principal); D64.9 Anemia, unspecified; D64.89 Other specified anemias; K35.33 Acute appendicitis with perforation, localized peritonitis, and gangrene, with abscess
CPT/HCPCS: 36415; 80053; 80061; 84443; 85025

== ENCOUNTER → 2022-03-17 11:47 | Outpatient (CLI) | payer MEDICARE, OTHER, SELFPAY ==
[2021-10-22 18:13] VITALS: BMI 25.5
== END ==
PROVIDERS: PCP Family Medicine; Visit Provider Nurse Practitioner Family
DX: N89.8 Other specified noninflammatory disorders of vagina (principal)
CPT/HCPCS: 87210

== ENCOUNTER → 2022-04-22 11:15 | Outpatient (CLI) | payer MEDICARE, OTHER, SELFPAY ==
[2021-10-22 18:13] VITALS: BMI 25.5
[2022-04-22 11:52] LABS: Appearance Urine UA CLEAR; Bilirubin Urine UA NEGATIVE (NEGATIVE); Color Urine UA YELLOW; Glucose Urine UA NEGATIVE (Negative); Ketones Urine UA NEGATIVE (NEGATIVE); Leukocyte Esterase Urine UA NEGATIVE (NEGATIVE); Nitrite Urine UA NEGATIVE (Negative); Occult Blood Urine UA 1+ (Negative); Protein Urine UA NEGATIVE (Negative); Specific Gravity Urine UA <=1.005 (1.000-1.035); Urobilinogen Urine UA 0.2 E.U./dL (0.2)
[2022-04-22 11:54] LABS: pH Urine UA 5.5 (4.5-8.0)
[2022-04-22 12:05] LABS: Bacteria Urine None Seen; Culture Indicated Urine Cult Not Indicated; RBC Urine None Seen (0-5/HPF); Squamous Epithelial Cell Urine None Seen (0-5/HPF); WBC Urine 0-1/HPF (0-5/HPF)
== END ==
PROVIDERS: PCP Pediatrics; Referring Provider Pediatrics; Visit Provider Pediatrics
DX: R30.0 Dysuria (principal)
CPT/HCPCS: 81001

== ENCOUNTER → 2022-06-07 08:54 | Outpatient (CLI) | payer MEDICARE, OTHER, SELFPAY ==
[2021-10-22 18:13] VITALS: BMI 25.5
[2022-06-07 09:26] LABS: COVID19 -Nasal RAPID Negative (Negative)
== END ==
PROVIDERS: PCP Pediatrics; Referring Provider Pediatrics; Visit Provider Pediatrics
DX: Z20.822 Contact with and (suspected) exposure to COVID-19 (principal)
CPT/HCPCS: 87635; C9803

== ENCOUNTER → 2022-10-24 08:42 | Outpatient (CLI) | payer MEDICARE, OTHER, SELFPAY ==
[2021-10-22 18:13] VITALS: BMI 25.5
[2022-10-24 10:55] LABS: Add Manual Diff / Slide Review NO; Basophils Absolute Auto 0 /uL (0-100); Basophils Percent Auto 0.6 % (0-2); Eosinophils Absolute Auto 100 /uL (0-450); Hematocrit 42.4 % (36-46); Hemoglobin 14.2 g/dL (12.0-16.0); Lymphocytes Absolute Auto 1600 /uL (1100-4500); Lymphocytes Percent Auto 32.2 % (25-40); Mean Corpuscular HGB Conc 33.6 % (30-36); Mean Corpuscular Hemoglobin 31.5 PG (26-34); Mean Corpuscular Volume 93.7 fL (80-100); Monocytes Absolute Auto 400 /uL (0-900); Monocytes Percent Auto 8.2 % (3-14); Neutrophils Absolute Auto 2800 /uL (1500-7000); Platelet Count 282 X10^3/uL (150-400); Red Blood Cell Count 4.52 X10^6/uL (4.0-5.2); Red Cell Distribution Width 13.9 % (11.6-14.8); White Blood Cell Count 4.8 X10^3/uL (4.5-11.0)
[2022-10-24 11:13] LABS: Hemoglobin A1C% w Est Avg Glu 5.6 % (4.0-6.0)
[2022-10-24 11:37] LABS: Alanine Aminotransferase 15 IU/L (<35); Albumin Globulin Ratio 1.6 (1.0-2.8); Alkaline Phosphatase 66 U/L (38-126); Aspartate Aminotransferase 18 IU/L (14-36); Bilirubin Total 0.7 mg/dL (0.2-1.3); Blood Urea Nitrogen 24 mg/dL (7-17); Calcium 9.1 mg/dL (8.4-10.2); Carbon Dioxide 23 mmol/L (22-32); Chloride 104 mmol/L (98-107); Cholesterol 265 mg/dL (140-199); Estimated Glomerular Filt Rate > 60 mL/min (>60); Globulin 2.5 g/dL (1.7-4.1); Glucose 96 mg/dL (80-110); HEMOLYSIS < 15 (0-50); Potassium 4.4 mmol/L (3.4-5.1); Sodium 134 mmol/L (137-145); Total Protein 6.5 g/dL (6.3-8.2); Triglycerides 162 mg/dL (35-150)
[2022-10-24 11:48] LABS: HDL Cholesterol 128 mg/dL (40-60); LDL Cholesterol Calculated 105 mg/dL (<100)
[2022-10-24 12:08] LABS: TSH w/ Reflex to FT4 2.25 uIU/mL (0.47-4.68)
== END ==
PROVIDERS: PCP Family Medicine; Referring Provider Family Medicine; Visit Provider Family Medicine
DX: E03.9 Hypothyroidism, unspecified (principal); H33.20 Serous retinal detachment, unspecified eye; I10 Essential (primary) hypertension; R73.01 Impaired fasting glucose
CPT/HCPCS: 36415; 80053; 80061; 83036; 84443; 85025

== ENCOUNTER → 2023-11-23 09:29 | Outpatient (CLI) | payer MEDICARE, OTHER, SELFPAY ==
[2021-10-22 18:13] VITALS: BMI 25.5
[2023-11-23 10:23] LABS: Add Manual Diff / Slide Review NO; Basophils Absolute Auto 0 /uL (0-100); Basophils Percent Auto 0.7 % (0-2); Eosinophils Absolute Auto 100 /uL (0-450); Eosinophils Percent Auto 2.2 % (2-4); Hematocrit 39.3 % (36-46); Hemoglobin 13.5 g/dL (12.0-16.0); Lymphocytes Absolute Auto 1500 /uL (1100-4500); Lymphocytes Percent Auto 25.8 % (25-40); Mean Corpuscular HGB Conc 34.4 % (30-36); Mean Corpuscular Hemoglobin 32.9 PG (26-34); Mean Corpuscular Volume 95.6 fL (80-100); Monocytes Absolute Auto 500 /uL (0-900); Monocytes Percent Auto 9.1 % (3-14); Neutrophils Absolute Auto 3700 /uL (1500-7000); Neutrophils Percent Auto 62.2 % (50-75); Platelet Count 392 X10^3/uL (150-400); Red Blood Cell Count 4.11 X10^6/uL (4.0-5.2); White Blood Cell Count 5.9 X10^3/uL (4.5-11.0)
[2023-11-23 11:02] LABS: Alanine Aminotransferase 25 IU/L (<35); Albumin 3.9 g/dL (3.5-5.0); Albumin Globulin Ratio 1.5 (1.0-2.8); Alkaline Phosphatase 58 U/L (38-126); Aspartate Aminotransferase 21 IU/L (14-36); BUN Creatinine Ratio 23.8 (6-22); Bilirubin Total 0.6 mg/dL (0.2-1.3); Blood Urea Nitrogen 19 mg/dL (7-17); Calcium 9.6 mg/dL (8.4-10.2); Carbon Dioxide 21 mmol/L (22-32); Chloride 112 mmol/L (98-107); Cholesterol 244 mg/dL (140-199); Estimated Glomerular Filt Rate > 60 mL/min (>60); Globulin 2.6 g/dL (1.7-4.1); Glucose 104 mg/dL (80-110); HDL Cholesterol 96 mg/dL (40-60); HEMOLYSIS < 15 (0-50); LDL Cholesterol Calculated 119 mg/dL (<100); Potassium 4.4 mmol/L (3.4-5.1); Sodium 141 mmol/L (137-145); Total Protein 6.5 g/dL (6.3-8.2); Triglycerides 144 mg/dL (35-150)
[2023-11-23 11:34] LABS: Thyroid Stimulating Hormone 1.34 uIU/mL (0.47-4.68)
== END ==
PROVIDERS: PCP Family Medicine; Referring Provider Family Medicine; Visit Provider Family Medicine
DX: E03.9 Hypothyroidism, unspecified (principal); E78.49 Other hyperlipidemia
CPT/HCPCS: 36415; 80053; 80061; 84439; 84443; 85025

== ENCOUNTER → 2023-12-13 11:32 | Outpatient (CLI) | payer MEDICARE, OTHER, SELFPAY ==
[2021-10-22 18:13] VITALS: BMI 25.5
[2023-12-13 16:49] LABS: Microalbumi Creatinin Ratio Ur 56.1 ug/mg CR (<30); Microalbumin Urine Random 4.1 mg/dL (0-1.6)
== END ==
PROVIDERS: PCP Family Medicine; Referring Provider Family Medicine; Visit Provider Family Medicine
DX: I10 Essential (primary) hypertension (principal)
CPT/HCPCS: 82043; 82570

== ENCOUNTER → 2024-12-24 10:29 | Outpatient (CLI) | payer MEDICARE, OTHER, SELFPAY ==
[2021-10-22 18:13] VITALS: BMI 25.5
[2024-12-24 11:40] LABS: Alanine Aminotransferase 21 IU/L (<35); Albumin 4.4 g/dL (3.5-5.0); Albumin Globulin Ratio 1.5 (1.0-2.8); Alkaline Phosphatase 61 U/L (38-126); Aspartate Aminotransferase 25 IU/L (14-36); BUN Creatinine Ratio 26.2 (6-22); Bilirubin Total 0.8 mg/dL (0.2-1.3); Blood Urea Nitrogen 27 mg/dL (7-17); Calcium 9.5 mg/dL (8.4-10.2); Carbon Dioxide 20 mmol/L (22-32); Chloride 109 mmol/L (98-107); Estimated Glomerular Filt Rate 55 mL/min (>60); Globulin 2.9 g/dL (1.7-4.1); Glucose 92 mg/dL (80-110); HEMOLYSIS < 15 (0-50); Potassium 4.3 mmol/L (3.4-5.1); Sodium 139 mmol/L (137-145); Total Protein 7.3 g/dL (6.3-8.2)
[2024-12-24 12:19] LABS: Thyroid Stimulating Hormone 1.09 uIU/mL (0.47-4.68)
== END ==
PROVIDERS: PCP Family Medicine; Referring Provider Family Medicine; Visit Provider Family Medicine
DX: E03.9 Hypothyroidism, unspecified (principal); I10 Essential (primary) hypertension; Z79.899 Other long term (current) drug therapy
CPT/HCPCS: 36415; 80053; 84443